=== PATIENT | male | born 1935 | race Caucasian/White ===

== ENCOUNTER 2017-05-21 20:38 | Inpatient (IN) | payer OTHER ==
[2017-05-21 20:50] VITALS: BMI 24.3
--- NOTE | 2017-05-21 20:52 | PDOC ---
History of Present Illness - General History Source: Patient, Family (son) Exam Limitations: No Limitations - History of Present Illness Initial Comments: 05/21/17 21:31 The patient is a 81 year old male with a significant past medical history of lung CA (s/p partial right lobectomy) on Tarceva, atrial fibrillation (on Coumadin), HLD, and IDDM who presents to the ED, accompanied by son, with complaints of cough for several days. The patient reports a dry nonproductive cough for several days. Patient reports right sided chest pain and back pain secondary to cough. As per son, the patient is warm to touch but denies a recorded fever. The patient had a CT done on 05/18/17 that showed right sided recurrent malignancy. Patient did not receive his flu shot this year. Denies abdominal pain, nausea, vomiting, or diarrhea. Denies shortness of breath on exertion and palpitations. Denies dysuria or change in urinary frequency. Denies any other symptoms. <Sumanth Brito - Last Filed: 05/21/17 21:37> <Indu Kelly - Last Filed: 05/22/17 02:46> - General Chief Complaint: Respiratory Stated Complaint: FEVER, BREATHING PROBLEMS Time Seen by Provider: 05/21/17 20:51 Past History <Sumanth Brito - Last Filed: 05/21/17 21:37> - Past Medical History Anemia: No Asthma: No Cancer: Yes (R LUNG S/P RADIATION) Cardiac Disorders: Yes (afib) CVA: No COPD: No CHF: No Dementia: No Diabetes: Yes GI Disorders: Yes (REFLUX) Disorders: Yes (ENLARGED PROSTATE) HTN: Yes Hypercholesterolemia: Yes Liver Disease: No Seizures: No Thyroid Disease: No - Surgical History Abdominal Surgery: No Appendectomy: No Cardiac Surgery: No Cholecystectomy: No Lung Surgery: Yes (R LUNG CA) Neurologic Surgery: No 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) - Suicide/Smoking/Psychosocial Hx Smoking Status: No Smoking History: Former smoker Have you smoked in the past 12 months: No Number of Cigarettes Smoked Daily: 0 If you are a former smoker, when did you quit?: 1983 Information on smoking cessation initiated: No Hx Alcohol Use: No Drug/Substance Use Hx: No Substance Use Type: None Hx Substance Use Treatment: No <Indu Kelly - Last Filed: 05/22/17 02:46> - Past Medical History Allergies/Adverse Reactions: Allergies Allergy/AdvReac Type Severity Reaction Status Date / Time vancomycin Allergy Severe Verified 08/10/16 10:37 Home Medications: Ambulatory Orders Dutasteride [Avodart] 0.5 mg PO DAILY 01/06/16 ERLOTINIB HCl [Tarceva (NF) -] 75 mg PO DAILY 01/06/16 Folic Acid 1 mg PO DAILY 01/06/16 Gabapentin [Neurontin -] 100 mg PO BID 01/06/16 Losartan Potassium [Cozaar -] 25 mg PO HS 01/06/16 Melatonin/Pyridoxine [Melatonin 3 mg Tablet] 1 each PO HS 01/06/16 Metformin HCl 500 mg PO DAILY 01/06/16 Metoclopramide HCl [Reglan] 5 mg PO HS 01/06/16 Pantoprazole Sodium [Protonix] 40 mg PO DAILY 01/06/16 Rosuvastatin Calcium [Crestor] 5 mg PO HS 01/06/16 Sitagliptin Phosphate [Januvia] 100 mg PO DAILY 01/06/16 Tamsulosin HCl [Flomax -] 0.4 mg PO DAILY 01/06/16 Amox-Tr/K Cl [Augmentin 875-125mg Tablet -] 1 tab PO BID #6 tablet 01/13/16 Clotrimazole [Athlete's Foot] 60 gm TP BID #1 cream..g. 01/13/16 Warfarin Na [Coumadin -] 1.5 mg PO DAILY@1800 #90 tablet 01/13/16 Warfarin Sodium [Coumadin] 2 mg PO DAILY #90 tablet 06/30/16 Review of Systems - Review of Systems Able to Perform ROS?: Yes Comments:: 05/21/17 21:32 CONSTITUTIONAL: + warm No reported: Fever, Chills, Diaphoresis, Generalized Weakness, Malaise, Loss of Appetite HEENT: No reported: Rhinorrhea, Nasal Congestion, Throat Pain, Throat Swelling, Difficulty Swallowing, Mouth Swelling, Ear Pain, Eye Pain, Visual Changes CARDIOVASCULAR: + chest pain No reported: Syncope, Palpitations, Irregular Heart Rate, Lightheadedness, Peripheral Edema RESPIRATORY: + cough No reported: Shortness of Breath, SOB with Exertion, Orthopnea, Wheezing, Stridor, Hemoptysis GASTROINTESTINAL: No reported: Abdominal pain, Abdominal Distension, Nausea, Vomiting, Diarrhea, Constipation, Melena, Hematochezia GENITOURINARY: No reported: Dysuria, Frequency, Urgency, Hesitancy, Flank Pain, Genital Pain MUSCULOSKELETAL: + back pain No reported: Myalgia, Arthralgia, Joint Swelling, Neck Pain SKIN: No reported: Rash, Itching, Pallor HEMEATOLOGIC/IMMUNOLOGIC: No reported: Easy Bleeding, Easy Bruising, Lymphadenopathy, Frequent infections ENDOCRINE: No reported: Unexplained Weight Gain, Unexplained Weight Loss, Heat Intolerance , Cold Intolerance NEUROLOGIC: No reported: Headache, Focal Weakness, Paresthesias, Vertigo, Lightheadedness, Unsteady Gait, Seizure, Mental Status Changes, Incontinence PSYCHIATRIC: No reported: Anxiety, Depression All Other Systems: Reviewed and Negative <Sumanth Brito - Last Filed: 05/21/17 21:37> *Physical Exam - Vital Signs Last Vital Signs Temp Pulse Resp BP Pulse Ox 99.5 F 113 H 19 108/50 98 05/21/17 20:46 05/21/17 20:46 05/21/17 20:46 05/21/17 20:46 05/21/17 20:46 - Physical Exam Comments: 05/21/17 21:32 GENERAL:Afebrile. Well developed. Awake and alert. No acute distress. HEENT: Normocephalic, atraumatic. PERRLA, EOMI. No conjunctival pallor. Sclera are non- icteric. Moist mucous membranes. Oropharynx is clear. NECK: Supple. Full ROM. No JVD. Carotid pulses 2+ and symmetric, without bruits. No thyromegaly. No lymphadenopathy. CARDIOVASCULAR: + Tachycardic. Regular rhythm. No murmurs, rubs, or gallops. Distal pulses are 2 + and symmetric. PULMONARY: + Right lung crackles superiorly, decreased breath sounds on the left lung. No wheezing, rales or rhonchi. ABDOMINAL: Soft. Non-tender. Non-distended. No rebound or guarding. No organomegaly. Normoactive bowel sounds. MUSCULOSKELETAL Normal range of motion at all joints. No bony deformities or tenderness. No CVA tenderness. EXTREMITIES: + left leg AKA, no pitting edema on right leg. No cyanosis. No clubbing. No calf tenderness. SKIN: + cold to touch, clammy, pale Normal capillary refill. No rashes. No jaundice. NEUROLOGICAL: Alert, awake, appropriate. Cranial nerves 2-12 intact. No deficits to light touch and temperature in face, upper extremities and lower extremities. No motor deficits in the in face, upper extremities and lower extremities. Normoreflexic in the upper and lower extremities. Normal speech. Toes are down- going bilaterally. Gait is normal without ataxia. PSYCHIATRIC: Cooperative. Good eye contact. Appropriate mood and affect. <Sumanth Brito - Last Filed: 05/21/17 21:37> - Vital Signs Last Vital Signs Temp Pulse Resp BP Pulse Ox 99.5 F 113 H 19 108/50 98 05/21/17 20:46 05/21/17 20:46 05/21/17 20:46 05/21/17 20:46 05/21/17 20:46 <Indu Kelly - Last Filed: 05/22/17 02:46> ED Treatment Course - LABORATORY CBC & Chemistry Diagram: 05/21/17 21:50 05/21/17 21:50 Comment: WBC elevated; likely due to chemo, as well as new malignancy and infection <Indu Kelly - Last Filed: 05/22/17 02:46> Medical Decision Making - Medical Decision Making 05/21/17 21:37 Case discussed with Brent Abdalla at 21:35 <Sumanth Brito - Last Filed: 05/21/17 21:37> - Medical Decision Making 05/21/17 21:12 Pt is cold clammy, pale and tachycardic. Comes with right sided chest pain that began 2 days ago. Pt had a chest and pelvis CT scan on May 18, three days ago which demonstrates a malignancy on the right lung, as there is increased tissue and pleural based nodularity since his last CT scan from Aug 2016. 05/21/17 21:17 Dr. Roberts is aware of the patient. Rx with abx for COPD/malignancy and likely pneumonia/sepsis. 05/22/17 02:[address] Rendon's service that pt is being admitted to the hospital. <Indu Kelly - Last Filed: 05/22/17 02:46> *DC/Admit/Observation/Transfer - Attestations Scribe Attestion: 05/21/17 21:32 Documentation prepared by Sumanth Brito, acting as pediatric medical assistant for Indu Kelly MD <Sumanth Brito - Last Filed: 05/21/17 21:37> - Discharge Dispostion Admit: Yes <Indu Kelly - Last Filed: 05/22/17 02:46> Diagnosis at time of Disposition: Tachycardia, Lung cancer, Sepsis, Pneumonia, Dyspnea - Discharge Dispostion Condition at time of disposition: Guarded - Referrals
[2017-05-21] MEDS ORDERED: ACETAMINOPHEN 1000 MG/100 ML VIAL (NON FORMULARY) IVPB ONE (20:53)
[2017-05-21] MEDS ORDERED: CEFTRIAXONE 1 GM in DEXTROSE 5%-WATER - 50 ML IVPB ONE (20:53)
[2017-05-21] MEDS ORDERED: AZITHROMYCIN IVPB 500 MG in DEXTROSE 5%-WATER - 250 ML IVPB ONE (20:53)
[2017-05-21] MEDS ORDERED: SODIUM CHLORIDE 0.9% 500 ML INFUS.BAG IV ONE (21:12)
[2017-05-21] MEDS ORDERED: ACETAMINOPHEN INJECTION 100 ML IVPB ONE (21:35)
[2017-05-21] MEDS ORDERED: AZITHROMYCIN IVPB 250 ML IVPB ONE (21:36)
[2017-05-21] MEDS ORDERED: CEFTRIAXONE 50 ML ONE (21:36)
[2017-05-21] MEDS ORDERED: FAMOTIDINE 20 MG/50 ML IVPB 50 ML IVPB ONE ×2 (21:42→22:20)
[2017-05-21 22:03] LABS: MCH 24.8 pg (25.7-33.7); MCHC 31.7 g/dl (32.0-35.9); MEAN CELL VOLUME 78.1 fl (80-96); MEAN PLT VOLUME 9.3 fl (7.5-11.1); PLATELET COUNT 351 K/MM3 (134-434); RDW 17.9 % (11.9-15.9)
[2017-05-21 22:06] LABS: WHITE BLOOD COUNT 49.4 K/mm3 (4.0-10.0)
[2017-05-21 22:20] LABS: INR 3.42 (0.82-1.09); PROTHROMBIN TIME (PATIENT) 38.6 SEC (9.98-11.88)
[2017-05-21 22:34] LABS: ALK PHOS 83 U/L (45-117); ANION GAP 10 (8-16); CALCIUM 8.6 mg/dL (8.5-10.1); CO2 23 mmol/L (21-32); CREATININE 1.4 mg/dL (0.7-1.3); GLUCOSE,RANDOM 143 mg/dL (74-106); SGOT/AST 21 U/L (15-37); SGPT/ALT 20 U/L (12-78); TOT PROT 7.5 g/dl (6.4-8.2)
[2017-05-21 22:37] LABS: PLATELET ESTIMATE ADEQUATE (NORMAL)
[2017-05-21 22:38] LABS: METAMYELOCYTE 3 % (0-2); MYELOCYTE 2 % (0-2); TOTAL CELLS COUNTED 100
[2017-05-22 09:52] LABS: MCH 24.1 pg (25.7-33.7); MCHC 30.5 g/dl (32.0-35.9); MEAN CELL VOLUME 79.1 fl (80-96); MEAN PLT VOLUME 8.8 fl (7.5-11.1); PLATELET COUNT 320 K/MM3 (134-434); RDW 18.3 % (11.9-15.9)
[2017-05-22 09:57] LABS: WHITE BLOOD COUNT 57.2 K/mm3 (4.0-10.0)
[2017-05-22] MEDS ORDERED: TAMSULOSIN HCL 0.4 MG CAP.ER.24H (FP) PO SCH (10:00)
[2017-05-22] MEDS ORDERED: CEFTRIAXONE 1 GM in DEXTROSE 5%-WATER - 50 ML IVPB SCH (10:00)
[2017-05-22] MEDS ORDERED: ERLOTINIB HCL PO SCH (10:00)
[2017-05-22] MEDS ORDERED: AZITHROMYCIN IVPB 250 ML IVPB ONE (10:24)
[2017-05-22] MEDS ORDERED: CEFTRIAXONE 50 ML ONE (10:24)
[2017-05-22 10:26] LABS: ANION GAP 10 (8-16); CALCIUM 8.3 mg/dL (8.5-10.1); CO2 26 mmol/L (21-32); CREATININE 1.2 mg/dL (0.7-1.3); GLUCOSE,RANDOM 111 mg/dL (74-106)
[2017-05-22 10:28] LABS: CPK 32 IU/L (39-308); TROPONIN I < 0.02 ng/ml (0.00-0.05)
[2017-05-22 10:40] LABS: INR 3.94 (0.82-1.09); PROTHROMBIN TIME (PATIENT) 44.5 SEC (9.98-11.88)
--- NOTE | 2017-05-22 11:02 | EKG ---
Test Reason : Blood Pressure : / mmHG Vent. Rate : 097 BPM Atrial Rate : 097 BPM P-R Int : 186 ms QRS Dur : 068 ms QT Int : 368 ms P-R-T Axes : 047 019 046 degrees QTc Int : 467 ms NORMAL SINUS RHYTHM POSSIBLE LEFT ATRIAL ENLARGEMENT WHEN COMPARED WITH ECG OF 06-JAN-2016 16:48, NO SIGNIFICANT CHANGE WAS FOUND Confirmed by SARAH GRAYSON MD ([id number]) on 05/22/2017 11:02:11 AM Referred By: Confirmed By:SARAH GRAYSON MD
[2017-05-22] MEDS: AZITHROMYCIN IVPB 500 MG in DEXTROSE 5%-WATER - 250 ML IVPB SCH (11:19)
[2017-05-22] MEDS: DUTASTERIDE 0.5 MG CAP (FP) PO SCH (12:17)
[2017-05-22] MEDS: metFORMIN HCL 500 MG TABLET (FP) PO SCH (12:17)
[2017-05-22] MEDS: sitaGLIPtin PHOSPHATE 100 MG TABLET (FP) PO SCH (12:18)
[2017-05-22] MEDS: GABAPENTIN 100 MG CAPSULE (FP) PO SCH ×2 (12:19→22:32)
[2017-05-22] MEDS: SODIUM CHLORIDE 1,000 ML IV SCH (12:20)
[2017-05-22] MEDS: FOLIC ACID 1 MG TABLET (FP) PO SCH (12:21)
[2017-05-22] MEDS: PANTOPRAZOLE 40 MG TABLET (FP) PO SCH (12:21)
--- NOTE | 2017-05-22 12:42 | HP ---
Admitting History and Physical - Primary Care Physician PCP: Brent Roberts - Admission Chief Complaint: SOB, Cough History of Present Illness: Pt with Hx/o Lung CA, s/p Right Lobectomy, on Tarceva, came to ER c/o progressive cough and SOB for the last 2-4 days; pt also with right base pain with cough and significant sweating and chills yesterday. Pt was admitted for PNA. 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) Gastrointestinal: Yes: GERD Renal/: Yes: BPH Heme/Onc: Yes: Cancer, Myeloproliferative Synd Musculoskeletal: Yes: Osteoarthritis, Other (s/p left AKA) Endocrine: Yes: Diabetes Mellitus - Past Surgical History Past Surgical History: Yes: Amputation (left AKA), Bypass (RLE) - Smoking History Smoking history: Former smoker Have you smoked in the past 12 months: No Aproximately how many cigarettes per day: 0 If you are a former smoker, when did you quit?: 1983 - Alcohol/Substance Use Hx Alcohol Use: No History of Substance Use: reports: None - Social History ADL: Family Assistance History of Recent Travel: No Home Medications - Allergies Allergies/Adverse Reactions: Allergies Allergy/AdvReac Type Severity Reaction Status Date / Time vancomycin Allergy Severe Verified 08/10/16 10:37 - Home Medications Home Medications: Ambulatory Orders Dutasteride [Avodart] 0.5 mg PO DAILY 01/06/16 Losartan Potassium [Cozaar -] 25 mg PO HS 01/06/16 Metformin HCl 500 mg PO DAILY 01/06/16 Sitagliptin Phosphate [Januvia] 100 mg PO DAILY 01/06/16 Warfarin Sodium [Coumadin] 2 mg PO DAILY #90 tablet 06/30/16 Erlotinib HCl [Tarceva] 50 mg PO DAILY 05/22/17 Ezetimibe 10 mg PO DAILY 05/22/17 Metoprolol Succinate [Toprol Xl] 100 mg PO DAILY 05/22/17 Warfarin Na [Coumadin] 1 mg PO HS 05/22/17 Family Disease History - Family Disease History Family Disease History: Heart Disease: Sister ([place] in her 60s; alive, in her 80s) Review of Systems - Review of Systems Constitutional: reports: Chills (at home) Eyes: denies: Blurred Vision, Double Vision HENT: denies: Difficult Swallowing, Ear Discharge, Ear Pain, Epistaxis, Nasal Congestion, Throat Pain Neck: denies: Pain on Movement, Stiffness Cardiovascular: denies: Chest Pain, Edema, Palpitations, Shortness of Breath Respiratory: reports: Cough, SOB Gastrointestinal: denies: Abdominal Pain, Diarrhea, Nausea Genitourinary: denies: Burning, Discharge Musculoskeletal: denies: Back Pain, Joint Swelling Integumentary: denies: Bruising, Rash Neurological: denies: Change in Speech, Confusion, Numbness Endocrine: reports: Excessive Sweating (yesterday). denies: Intolerance to Cold Hematology/Lymphatic: denies: Easily Bruised, Excessive Bleeding Psychiatric: denies: Anxiety, Depression Physical Examination Vital Signs: Vital Signs Temperature 97.6 F 05/22/17 09:00 Pulse Rate 83 05/22/17 09:00 Respiratory Rate 17 05/22/17 09:00 Blood Pressure 102/55 05/22/17 09:00 O2 Sat by Pulse Oximetry (%) 98 05/22/17 06:43 Constitutional: Yes: No Distress, Calm Eyes: Yes: Conjunctiva Clear, EOM Intact HENT: Yes: Normocephalic. No: Rhinnorhea Neck: Yes: Trachea Midline. No: Lymphadenopathy Cardiovascular: Yes: Regular Rate and Rhythm, S1, S2 Respiratory: Yes: Regular, Rales (right >> left) Gastrointestinal: Yes: Normal Bowel Sounds, Soft. No: Palpable Mass, Tenderness ...Rectal Exam: Yes: Deferred Renal/: No: CVA Tenderness - Left, CVA Tenderness - Right Extremities: Yes: Amputation Edema: No Neurological: Yes: Alert, Oriented Psychiatric: Yes: Alert, Oriented Labs: CBC, BMP 05/22/17 09:35 05/22/17 09:35 Imaging - Results Chest X-ray: Report Reviewed, Image Reviewed Problem List - Problems (1) Pneumonia Code(s): J18.9 - PNEUMONIA, UNSPECIFIED ORGANISM (2) Lung cancer Code(s): C34.90 - MALIGNANT NEOPLASM OF UNSP PART OF UNSP BRONCHUS OR LUNG (3) Sepsis Code(s): A41.9 - SEPSIS, UNSPECIFIED ORGANISM (4) Lactic acid acidosis Code(s): E87.2 - ACIDOSIS (5) Myeloproliferative disorder Code(s): D47.1 - CHRONIC MYELOPROLIFERATIVE DISEASE (6) Subtherapeutic anticoagulation Code(s): Z51.81 - ENCOUNTER FOR THERAPEUTIC DRUG LEVEL MONITORING Z79.01 - DETENTION (CURRENT) USE OF ANTICOAGULANTS (7) Diabetes mellitus Code(s): E11.9 - TYPE 2 DIABETES MELLITUS WITHOUT COMPLICATIONS Qualifiers: Diabetes mellitus type: type 2 Diabetes mellitus complication detail: with other circulatory complications Assessment/Plan IV abtx IVF ID, Pulmonary, Onco consults f/u BGM AM labs. case was d/w pt's nurse.
[2017-05-22 13:21] LABS: C-REACTIVE PROTEIN 14.1 MG/DL (0.00-0.3)
--- NOTE | 2017-05-22 14:14 | CONSULT ---
Consult - text type - Consultation Consultation Note: ONCOLGOY CONSULT NOTE : PNEUMONIA PCP: Brent Roberts - Admission Chief Complaint: SOB, Cough History of Present Illness: This is a 81 year old male who had lung cancer and s/p R. lobectomy and on tarceva. He came in with cough, nigh sweats, weight loss and fever. The son says he is much iproved after starting antibiotics. He also had MPD which makes his cell counts hard to interpret. 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) Gastrointestinal: Yes: GERD Renal/: Yes: BPH Heme/Onc: Yes: Cancer, Myeloproliferative Synd Musculoskeletal: Yes: Osteoarthritis, Other (s/p left AKA) Endocrine: Yes: Diabetes Mellitus - Past Surgical History Past Surgical History: Yes: Amputation (left AKA), Bypass (RLE) - Smoking History Smoking history: Former smoker Have you smoked in the past 12 months: No Aproximately how many cigarettes per day: 0 If you are a former smoker, when did you quit?: 1983 - Alcohol/Substance Use Hx Alcohol Use: No History of Substance Use: reports: None - Social History ADL: Family Assistance History of Recent Travel: No Home Medications - Allergies Allergies/Adverse Reactions: Allergies Allergy/AdvReac Type Severity Reaction Status Date / Time vancomycin Allergy Severe Verified 08/10/16 10:37 - Home Medications Home Medications: Ambulatory Orders Dutasteride [Avodart] 0.5 mg PO DAILY 01/06/16 Losartan Potassium [Cozaar -] 25 mg PO HS 01/06/16 Metformin HCl 500 mg PO DAILY 01/06/16 Sitagliptin Phosphate [Januvia] 100 mg PO DAILY 01/06/16 Warfarin Sodium [Coumadin] 2 mg PO DAILY #90 tablet 06/30/16 Erlotinib HCl [Tarceva] 50 mg PO DAILY 05/22/17 Ezetimibe 10 mg PO DAILY 05/22/17 Metoprolol Succinate [Toprol Xl] 100 mg PO DAILY 05/22/17 Warfarin Na [Coumadin] 1 mg PO HS 05/22/17 Family Disease History - Family Disease History Family Disease History: Heart Disease: Sister ([place] in her 60s; alive, in her 80s) Review of Systems - Review of Systems Constitutional: reports: Chills (at home) Eyes: denies: Blurred Vision, Double Vision HENT: denies: Difficult Swallowing, Ear Discharge, Ear Pain, Epistaxis, Nasal Congestion, Throat Pain Neck: denies: Pain on Movement, Stiffness Cardiovascular: denies: Chest Pain, Edema, Palpitations, Shortness of Breath Respiratory: reports: Cough, SOB Gastrointestinal: denies: Abdominal Pain, Diarrhea, Nausea Genitourinary: denies: Burning, Discharge Musculoskeletal: denies: Back Pain, Joint Swelling Integumentary: denies: Bruising, Rash Neurological: denies: Change in Speech, Confusion, Numbness Endocrine: reports: Excessive Sweating (yesterday). denies: Intolerance to Cold Hematology/Lymphatic: denies: Easily Bruised, Excessive Bleeding Psychiatric: denies: Anxiety, Depression Physical Examination Vital Signs Period Temp Pulse Resp BP Sys/Giordano Pulse Ox Last 24 Hr 97.6 F-99.5 F 83-113 17-19 102-108/50-55 98-98 Constitutional: Yes: No Distress, Calm Eyes: Yes: Conjunctiva Clear, EOM Intact HENT: Yes: Normocephalic. No: Rhinnorhea Neck: Yes: Trachea Midline. No: Lymphadenopathy Cardiovascular: Yes: Regular Rate and Rhythm, S1, S2 Respiratory: Yes: L. sided bronchial breath sounds. R. side crackles present Gastrointestinal: Yes: Normal Bowel Sounds, Soft. No: Palpable Mass, Tenderness ...Rectal Exam: Yes: Deferred Renal/: No: CVA Tenderness - Left, CVA Tenderness - Right Extremities: Yes: Amputation Edema: No Neurological: Yes: Alert, Oriented Psychiatric: Yes: Alert, Oriented Labs: CBC, BMP 05/22/17 09:35 05/22/17 09:35 Active Medications Generic Name Dose Route Start Last Admin Trade Name Freq PRN Reason Stop Dose Admin Clotrimazole 1 applic 05/22/17 10:00 Lotrimin 1% Cream - TP BID DENISE Dutasteride 0.5 mg 05/22/17 10:00 Avodart - PO DAILY DENISE Ezetimibe 10 mg 05/23/17 10:00 Zetia - PO DAILY DENISE Folic Acid 1 mg 05/22/17 10:00 Folic Acid - PO DAILY DENISE Gabapentin 100 mg 05/22/17 10:00 Neurontin - PO BID [facility] Azithromycin 500 mg/ Dextrose 250 mls @ 250 mls/hr 05/22/17 10:00 IVPB DAILY [facility] Ceftriaxone Sodium 1 gm/ 50 mls @ 100 mls/hr 05/22/17 10:00 Dextrose IVPB DAILY [facility] Sodium Chloride 1,000 mls @ 75 mls/hr 05/22/17 12:00 Normal Saline - IV ASDIR [facility] Insulin Aspart 10 units 05/22/17 16:30 Novolog Vial SQ ACHS [facility] Protocol Losartan Potassium 25 mg 05/22/17 22:00 Cozaar - PO HS [facility] Metformin HCl 500 mg 05/22/17 10:00 Glucophage - PO DAILY [facility] Metoclopramide HCl 5 mg 05/22/17 22:00 Reglan - PO HS [facility] Metoprolol Tartrate 50 mg 05/22/17 22:00 Lopressor - PO BID [facility] Non-Formulary Medication 75 mg 05/22/17 10:00 Erlotinib Hcl PO DAILY [facility] Non-Formulary Medication 50 mg 05/23/17 10:00 Erlotinib Hcl [Tarceva] PO DAILY [facility] Pantoprazole Sodium 40 mg 05/22/17 10:00 Protonix - PO DAILY [facility] Rosuvastatin Calcium 5 mg 05/22/17 22:00 Crestor - PO HS [facility] Sitagliptin Phosphate 100 mg 05/22/17 10:00 Januvia - PO DAILY [facility] Tamsulosin HCl 0.4 mg 05/22/17 13:20 Flomax - PO DAILY@0830 [facility] Imaging - Results Chest X-ray: Report Reviewed, Image Reviewed Problem List - Problems (1) Pneumonia Code(s): J18.9 - PNEUMONIA, UNSPECIFIED ORGANISM (2) Lung cancer Code(s): C34.90 - MALIGNANT NEOPLASM OF UNSP PART OF UNSP BRONCHUS OR LUNG (3) Sepsis Code(s): A41.9 - SEPSIS, UNSPECIFIED ORGANISM (4) Lactic acid acidosis Code(s): E87.2 - ACIDOSIS (5) Myeloproliferative disorder Code(s): D47.1 - CHRONIC MYELOPROLIFERATIVE DISEASE (6) Subtherapeutic anticoagulation Code(s): Z51.81 - ENCOUNTER FOR THERAPEUTIC DRUG LEVEL MONITORING Z79.01 - NURSING HOME (CURRENT) USE OF ANTICOAGULANTS (7) Diabetes mellitus Code(s): E11.9 - TYPE 2 DIABETES MELLITUS WITHOUT COMPLICATIONS Qualifiers: Diabetes mellitus type: type 2 Diabetes mellitus complication detail: with other circulatory complications Assessment/Plan 81 year old male with lung cancer on tarceva and MPD here with pneumonia -He has markedly improved since yesterday and hence continue with azithromycin -His MPD makes WCC difficult to interpret and hence wouldt rely on this -contiue tarceva (the patient took his tarceva this morning).
[2017-05-22] MEDS: INSULIN (NOVOLOG) ASPART 100 UNITS/ML 10ML VIAL SQ SCH ×2 (16:38→22:33)
--- NOTE | 2017-05-22 17:34 | PN ---
Progress Note (short form) - Note Progress Note: ID Consult dictated Pneumonia Leukocytosis- multifactorial Lactic acidosis Lung ca COPD Hx MPD Await cultures Continue empiric zithromax/ ceftriaxone
[2017-05-22] MEDS ORDERED: WARFARIN NA 1 MG TABLET (FP) PO SCH (18:00)
--- NOTE | 2017-05-22 18:02 | CONS ---
DATE OF CONSULTATION: DATE OF DICTATION: 05/22/2017 The patient is an 81-year-old male with a history of lung cancer, on Tarceva, who was evaluated for possible pneumonia. He was admitted to the hospital on May 21, 2017, with worsening dry cough associated with right-sided pleuritic chest and back pain. On the x-ray, he was noted to have increased markings on the right side as compared to previous studies. CAT scan which was performed on May 18, 2017, showed mass-like consolidation involving the right upper lung field. He denies any purulent sputum production or hemoptysis. He has had subjective fever. The patient, in the emergency room, was noted to have a markedly white blood cell count of 57,000. He has a history of myeloproliferative disorder; however, his baseline white blood cell counts are normally in the teens and low 20s. He denies any ill contacts or recent travel. He is a former smoker. Past medical history positive for adenocarcinoma of the lung diagnosed in 2012. He is status post right partial lobectomy. He also received Tarceva. Past medical history also includes myelodysplastic syndrome, atrial fibrillation, hyperlipidemia, insulin-dependent diabetes mellitus, BPH. PAST SURGICAL HISTORY: Status post right lobectomy, status post left [id number] amputation. Allergies to VANCOMYCIN (hives). Medications include Avodart, Tarceva, Neurontin, Cozaar, melatonin, metformin, Reglan, Protonix, Crestor, Januvia, Flomax. SOCIAL HISTORY: Lives at home with family members. Former smoker. SYSTEMS REVIEW: Neurologic: No loss of consciousness, seizure activity, or focal weakness. Cardiac: Negative chest pain or palpitations. Respiratory: As per HPI. Gastrointestinal: Negative vomiting or diarrhea. Genitourinary: Negative for urinary tract infection. LABORATORY DATA: White count 57,000 with 62 neutrophils, 20 bands, 1 lymphocytes. Hematocrit 42.3, platelet count 320, BUN 24, creatinine 1.2, lactic acid 2.6. Flu swab negative. Cultures pending. PHYSICAL EXAMINATION: General: He is awake and alert. He is not acutely toxic appearing. He is not dyspneic at rest on nasal cannula. Vital Signs: Temperature 97.3. Blood pressure 146/68. Pulse 92, regular. Respirations 20 per minute. Heart Sounds: S1, S2. Lungs: Diminished breath sounds bilaterally. Abdomen: Soft. No tenderness elicited. No mass, rebound or rigidity. Extremities: Status post left [id number] amputation. IMPRESSION: 1. Pneumonia. 2. Leukocytosis (multifactorial). 3. Lactic acidosis, possible sepsis. 4. Lung cancer. 5. Chronic obstructive pulmonary disease. 6. History of myeloproliferative disorder. Await culture results. Obtain sputum culture and urine Legionella and pneumococcal antigens. Empiric antibiotic coverage with Zithromax and ceftriaxone. Follow up CBC. Hematology evaluation. Will follow. Thank you for the kind referral. SARAH VILLA M.D. [id number]
[2017-05-22] MEDS: CLOTRIMAZOLE 1% CREAM 15 GM TUBE TP SCH ×2 (18:11→22:33)
[2017-05-22] MEDS ORDERED: PT OWN MED DRAWER 7, Y5N ONE (18:51)
[2017-05-22] MEDS: METOCLOPRAMIDE HCL 10 MG TABLET (FP) PO SCH (22:32)
[2017-05-22] MEDS: LOSARTAN POTASSIUM 25 MG TABLET PO SCH (22:32)
[2017-05-22] MEDS: METOPROLOL TARTRATE 50 MG TABLET (FP) PO SCH (22:32)
[2017-05-22] MEDS: ROSUVASTATIN CA 5 MG TABLET (FP) PO SCH (22:33)
[2017-05-23] MEDS: INSULIN (NOVOLOG) ASPART 100 UNITS/ML 10ML VIAL SQ SCH (06:46)
[2017-05-23 07:23] LABS: MCHC 31.7 g/dl (32.0-35.9); MEAN CELL VOLUME 78.7 fl (80-96); MEAN PLT VOLUME 9.1 fl (7.5-11.1); PLATELET COUNT 303 K/MM3 (134-434); RDW 18.1 % (11.9-15.9)
[2017-05-23 07:33] LABS: WHITE BLOOD COUNT 33.7 K/mm3 (4.0-10.0)
[2017-05-23 07:34] LABS: INR 2.38 (0.82-1.09); PROTHROMBIN TIME (PATIENT) 26.9 SEC (9.98-11.88)
[2017-05-23 07:52] LABS: ALBUMIN 2.4 g/dl (3.4-5.0); ANION GAP 9 (8-16); BILIRUBIN,TOTAL 0.8 mg/dL (0.2-1.0); CALCIUM 7.8 mg/dL (8.5-10.1); CO2 23 mmol/L (21-32); CREATININE 0.9 mg/dL (0.7-1.3); GLUCOSE,RANDOM 90 mg/dL (74-106); SGOT/AST 12 U/L (15-37); SGPT/ALT 16 U/L (12-78); TOT PROT 6.4 g/dl (6.4-8.2)
[2017-05-23 07:53] LABS: ALK PHOS 66 U/L (45-117)
[2017-05-23] MEDS: TAMSULOSIN HCL 0.4 MG CAP.ER.24H (FP) PO SCH (09:10)
[2017-05-23 09:54] LABS: ANISOCYTOSIS 1+; HYPOCHROMIA 1+; MACROCYTOSIS FEW; MICROCYTOSIS FEW; OVALOCYTE 1+; TARGET CELLS 1+; TEAR DROP CELLS 1+; TOTAL CELLS COUNTED 100
[2017-05-23 09:55] LABS: BURR CELLS 1+; PLATELET ESTIMATE ADEQUATE (NORMAL)
[2017-05-23] MEDS: GABAPENTIN 100 MG CAPSULE (FP) PO SCH ×2 (10:07→21:25)
[2017-05-23] MEDS: FOLIC ACID 1 MG TABLET (FP) PO SCH (10:07)
[2017-05-23] MEDS: metFORMIN HCL 500 MG TABLET (FP) PO SCH (10:08)
[2017-05-23] MEDS: METOPROLOL TARTRATE 50 MG TABLET (FP) PO SCH ×2 (10:09→21:25)
[2017-05-23] MEDS: PANTOPRAZOLE 40 MG TABLET (FP) PO SCH (10:09)
[2017-05-23] MEDS: CEFTRIAXONE 1 G/50 ML PREMIX 50 ML IVPB SCH (10:09)
[2017-05-23] MEDS: DUTASTERIDE 0.5 MG CAP (FP) PO SCH (10:09)
[2017-05-23] MEDS: EZETIMIBE 10 MG TABLET (FP) PO SCH (10:10)
[2017-05-23] MEDS: sitaGLIPtin PHOSPHATE 100 MG TABLET (FP) PO SCH (10:10)
[2017-05-23] MEDS: AZITHROMYCIN IVPB 500 MG in DEXTROSE 5%-WATER - 250 ML IVPB SCH (11:23)
[2017-05-23] MEDS ORDERED: INSULIN (NOVOLOG) ASPART 100 UNITS/ML 10ML VIAL ONE (11:34)
[2017-05-23] MEDS: CLOTRIMAZOLE 1% CREAM 15 GM TUBE TP SCH ×2 (12:05→21:31)
[2017-05-23] MEDS: SODIUM CHLORIDE 1,000 ML IV SCH ×2 (12:06→21:28)
[2017-05-23] MEDS: INSULIN SLIDING SCALE (NOVOLOG) 1 VIAL SQ SCH ×3 (12:13→21:32)
--- NOTE | 2017-05-23 14:30 | PN ---
Progress Note (short form) - Note Progress Note: PULMONARY CONSULTATION DICTATED 05/23/17 IMP PNEUMONIA RECURRENT LUNG CA S/P RUL WEDGE RESECTION AFIB HTN DM LACTIC ACIDOSIS PVD S/P L AKA MYELOPROLIFERATIVE DISORDER GERD PLAN IV ANTIBIOTCS O2 INHALED BRONCHODILATORS PRN CULTURES F/U CHEST X-RAYS TREND LACTATE TARCEVA MONITOR CBC DR MORENO Problem List - Problems (1) Dyspnea Code(s): R06.00 - DYSPNEA, UNSPECIFIED (2) Pneumonia Code(s): J18.9 - PNEUMONIA, UNSPECIFIED ORGANISM (3) Sepsis Code(s): A41.9 - SEPSIS, UNSPECIFIED ORGANISM (4) Tachycardia Code(s): R00.0 - TACHYCARDIA, UNSPECIFIED (5) Lung cancer Code(s): C34.90 - MALIGNANT NEOPLASM OF UNSP PART OF UNSP BRONCHUS OR LUNG (6) Chest pain Code(s): R07.9 - CHEST PAIN, UNSPECIFIED (7) Lactic acid acidosis Code(s): E87.2 - ACIDOSIS (8) Maintenance chemotherapy Code(s): Z51.11 - ENCOUNTER FOR ANTINEOPLASTIC CHEMOTHERAPY (9) Myeloproliferative disorder Code(s): D47.1 - CHRONIC MYELOPROLIFERATIVE DISEASE (10) PAD (peripheral artery disease) Code(s): I73.9 - PERIPHERAL VASCULAR DISEASE, UNSPECIFIED (11) Diabetes mellitus Code(s): E11.9 - TYPE 2 DIABETES MELLITUS WITHOUT COMPLICATIONS Qualifiers: Diabetes mellitus type: type 2 Diabetes mellitus complication detail: with other circulatory complications (12) GERD (gastroesophageal reflux disease) Code(s): K21.9 - GASTRO-ESOPHAGEAL REFLUX DISEASE WITHOUT ESOPHAGITIS Qualifiers: Esophagitis presence: with esophagitis Qualified Code(s): K21.0 - Gastro-esophageal reflux disease with esophagitis; K21.0 - Gastro-esophageal reflux disease with esophagitis; K21.0 - Gastro-esophageal reflux disease with esophagitis (13) Hypercholesteremia Code(s): E78.0 - PURE HYPERCHOLESTEROLEMIA * DO NOT USE *
--- NOTE | 2017-05-23 16:41 | PN ---
Progress Note, Physician History of Present Illness: Pt W?o fever, chills, CP, palp, abd apin Pt still coughs - Current Medication List Current Medications: Active Medications Clotrimazole (Lotrimin 1% Cream -) 1 applic TP BID [facility] Last Admin: 05/23/17 12:05 Dose: 1 applic Dutasteride (Avodart -) 0.5 mg PO DAILY [facility] Last Admin: 05/23/17 10:09 Dose: 0.5 mg Ezetimibe (Zetia -) 10 mg PO DAILY [facility] Last Admin: 05/23/17 10:10 Dose: 10 mg Folic Acid (Folic Acid -) 1 mg PO DAILY [facility] Last Admin: 05/23/17 10:07 Dose: 1 mg Gabapentin (Neurontin -) 100 mg PO BID [facility] Last Admin: 05/23/17 10:07 Dose: 100 mg Azithromycin 500 mg/ Dextrose 250 mls @ 250 mls/hr IVPB DAILY [facility] Last Admin: 05/23/17 11:23 Dose: 250 mls/hr Sodium Chloride (Normal Saline -) 1,000 mls @ 75 mls/hr IV ASDIR [facility] Last Admin: 05/23/17 12:06 Dose: Not Given CEFTRIAXONE 1 G/50 ML PREMIX (Ceftriaxone 1 Gm-D5w Bag) 50 mls @ 100 mls/hr IVPB DAILY [facility] Last Admin: 05/23/17 10:09 Dose: 100 mls/hr Insulin Aspart (Novolog Vial Sliding Scale -) 1 vial SQ ACHS [facility] PRN Reason: Protocol Last Admin: 05/23/17 12:13 Dose: 2 units Losartan Potassium (Cozaar -) 25 mg PO HS [facility] Last Admin: 05/22/17 22:32 Dose: 25 mg Metformin HCl (Glucophage -) 500 mg PO DAILY [facility] Last Admin: 05/23/17 10:08 Dose: 500 mg Metoclopramide HCl (Reglan -) 5 mg PO HS [facility] Last Admin: 05/22/17 22:32 Dose: 5 mg Metoprolol Tartrate (Lopressor -) 50 mg PO BID [facility] Last Admin: 05/23/17 10:09 Dose: 50 mg Non-Formulary Medication (Erlotinib Hcl [Tarceva]) 50 mg PO DAILY [facility] Pantoprazole Sodium (Protonix -) 40 mg PO DAILY [facility] Last Admin: 10/16/17 10:09 Dose: 40 mg Rosuvastatin Calcium (Crestor -) 5 mg PO HS [facility] Last Admin: 05/22/17 22:33 Dose: 5 mg Sitagliptin Phosphate (Januvia -) 100 mg PO DAILY [facility] Last Admin: 05/23/17 10:10 Dose: 100 mg Tamsulosin HCl (Flomax -) 0.4 mg PO DAILY@0830 [facility] Last Admin: 05/23/17 09:10 Dose: 0.4 mg - Objective Vital Signs: Vital Signs Temperature 97.5 F L 05/23/17 15:34 Pulse Rate 89 05/23/17 15:34 Respiratory Rate 20 05/23/17 15:34 Blood Pressure 119/55 05/23/17 15:34 O2 Sat by Pulse Oximetry (%) 98 05/23/17 09:00 Constitutional: Yes: No Distress, Calm Cardiovascular: Yes: Regular Rate and Rhythm, S1, S2 Respiratory: Yes: Regular, Rhonchi (at bases) Gastrointestinal: Yes: Normal Bowel Sounds, Soft. No: Tenderness Extremities: Yes: Other (Left AKA) Edema: No (on right) Neurological: Yes: Alert, Oriented Labs: CBC, BMP 05/23/17 06:30 05/23/17 06:30 INR, PTT INR 2.38 (0.82-1.09) H D 05/23/17 06:30 Problem List - Problems (1) Pneumonia Code(s): J18.9 - PNEUMONIA, UNSPECIFIED ORGANISM (2) Lung cancer Code(s): C34.90 - MALIGNANT NEOPLASM OF UNSP PART OF UNSP BRONCHUS OR LUNG (3) Sepsis Code(s): A41.9 - SEPSIS, UNSPECIFIED ORGANISM (4) Lactic acid acidosis Code(s): E87.2 - ACIDOSIS (5) Myeloproliferative disorder Code(s): D47.1 - CHRONIC MYELOPROLIFERATIVE DISEASE (6) Subtherapeutic anticoagulation Code(s): Z51.81 - ENCOUNTER FOR THERAPEUTIC DRUG LEVEL MONITORING 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 f/u BGM AM labs. Resume Coumadin case was d/w pt's nurse.
--- NOTE | 2017-05-23 17:03 | CONS ---
DATE OF CONSULTATION: 05/23/2017 PULMONARY CONSULTATION REFERRING PHYSICIAN: Brent Roberts M.D. HISTORY OF PRESENT ILLNESS: The patient is an 81-year-old male with past medical history of lung CA, adeno cell type, status post wedge resection right upper lobe in 2011, currently maintain on Tarceva. History of atrial fibrillation, GERD, myeloproliferative syndrome, osteoarthritis. History of peripheral vascular disease status post left AKA . Diabetes. History of right lower extremity bypass. Admitted to [facility] with complaint of 1-week history increasing shortness of breath, cough productive of yellowish sputum, right-sided chest discomfort. Patient denies any fevers, although complained of sweating and chills. He presented to the emergency room above. On admission, he is felt to have a possible pneumonia. He was placed on antibiotic therapy with good clinical response. Patient denies any hemoptysis, denies any nausea, vomiting or diaphoreses. He has a history of smoking, quit 35 years ago. 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 He denies any occupational exposures. He was born in [place], moved to [facility] greater than 35 years ago. PAST MEDICAL HISTORY: Again, includes bronchogenic CA adeno cell type status post wedge resection right upper lobe, currently maintain on Tarceva, peripheral vascular disease status post left AKA, diabetes, osteoarthritis, myeloproliferative syndrome, BPH, GERD, and atrial fibrillation, and hypertension. REVIEW OF SYSTEMS: No orthopnea. No PND. Positive cough. Positive sputum. Positive chest discomfort right-sided. Positive chills, no fever. No hemoptysis, no abdominal pain. CURRENT MEDICATIONS: Include Tarceva, Avodart, Flomax, Cozaar, Zithromax, Neurontin, Lotrimin, Glucophage, ceftriaxone, , Januvia, Crestor, Protonix, folic acid. PHYSICAL EXAMINATION: General: The patient is a well-developed, well-nourished male, awake, alert, in no acute distress. Vital signs: He is currently afebrile. Heart rate is 92. Blood pressure is 105/76, respiratory rate is 20, O2 saturation is 97% on room air. HEENT: Head is normocephalic, atraumatic. Neck: Supple. Heart: Regular. S1, S2. Chest: Chest tube on the right. Abdomen: Soft. Bowel sounds positive. Extremities: No cyanosis, edema. Status post left AKA. LABORATORY: WBC is 33.7, hemoglobin 11.8, hematocrit 37.2, with platelet count of 303,000. Of note CBC on admission was 49.4. Previous WBC was 11.1 on December 21. INR is 2.38. Chemistries: BUN 20, creatinine 0.9, lactate level was 2.6. Chest CT reveals post thoracotomy change in the right upper lobe. There is increased nodularity in the right lower lobe which is increased in size from previous CAT scan compared to September 02, 2016, and there is increase of right upper lobe consolidation and/or atelectasis. IMPRESSION: 1. Chills, fever, rule out possible pneumonia, right upper lobe. 2. History of bronchogenic carcinoma, likely status post wedge resection, right upper lobe. 3. Likely recurrent lung carcinoma, currently on Tarceva. 4. Hypertension. 5. Diabetes. 6. Peripheral vascular disease. 7. Myeloproliferative syndrome. 8. Lactic acidosis. PLAN: IV steroids, IV antibiotics, inhaled bronchodilators, supplemental O2, obtain cultures, monitor CBC. Trend lactate, cultures. Thank you. Will follow closely with you. MALLY MORENO M.D. DELORIS/[id number]
[2017-05-23] MEDS ORDERED: WARFARIN NA 1 MG TABLET (FP) PO ONE (18:00)
--- NOTE | 2017-05-23 19:16 | PN ---
Progress Note (short form) - Note Progress Note: Patient seen and examined Denies any complaints Last Vital Signs Temp Pulse Resp BP Pulse Ox 98.8 F 95 H 18 130/58 99 05/24/17 06:00 05/24/17 06:00 05/24/17 06:00 05/24/17 06:00 05/23/17 21:00 Cor: RSR, No murmurs, No gallops Lungs: Clear to P&A Abd: Soft, Normal bowel sounds, No organomegaly Ext:No significant edema Skin: No rashes, Integument intact Abnormal Lab Results 05/23/17 06:30 WBC 33.7 H* D MCV 78.7 L MCH 25.0 L MCHC 31.7 L RDW 18.1 H Neutrophils % (Manual) 86 H D Lymphocytes % (Manual) 2 L D Home Medication List Medication Instructions Recorded Confirmed Type Dutasteride [Avodart] 0.5 mg PO DAILY 01/06/16 05/22/17 History Losartan Potassium [Cozaar -] 25 mg PO HS 01/06/16 05/22/17 History Metformin HCl 500 mg PO DAILY 01/06/16 05/22/17 History Sitagliptin Phosphate [Januvia] 100 mg PO DAILY 01/06/16 05/22/17 History Erlotinib HCl [Tarceva] 50 mg PO DAILY 05/22/17 05/22/17 History Ezetimibe 10 mg PO DAILY 05/22/17 05/22/17 History Metoprolol Succinate [Toprol Xl] 100 mg PO DAILY 05/22/17 05/22/17 History Warfarin Na [Coumadin] 1 mg PO HS 05/22/17 05/22/17 History Active Medications Generic Name Dose Route Start Last Admin Trade Name Freq PRN Reason Stop Dose Admin Clotrimazole 1 applic 05/22/17 10:00 05/23/17 21:31 Lotrimin 1% Cream - TP Not Given BID [facility] Dutasteride 0.5 mg 05/22/17 10:00 05/23/17 10:09 Avodart - PO 0.5 mg DAILY [facility] Administration Ezetimibe 10 mg 05/23/17 10:00 05/23/17 10:10 Zetia - PO 10 mg DAILY [facility] Administration Folic Acid 1 mg 05/22/17 10:00 05/23/17 10:07 Folic Acid - PO 1 mg DAILY [facility] Administration Gabapentin 100 mg 05/22/17 10:00 05/23/17 21:25 Neurontin - PO 100 mg BID [facility] Administration Azithromycin 500 mg/ Dextrose 250 mls @ 250 mls/hr 05/22/17 10:00 05/23/17 11: 23 IVPB 250 mls/hr DAILY [facility] Administration Sodium Chloride 1,000 mls @ 75 mls/hr 05/22/17 12:00 05/23/17 21:28 Normal Saline - IV 75 mls/hr ASDIR [facility] Administration CEFTRIAXONE 1 G/50 ML PREMIX 50 mls @ 100 mls/hr 05/23/17 08:24 05/23/17 10:09 Ceftriaxone 1 Gm-D5w Bag IVPB 100 mls/hr DAILY [facility] Administration Insulin Aspart 1 vial 05/23/17 16:30 05/24/17 07:03 Novolog Vial Sliding Scale - SQ Not Given ACHS [facility] Protocol Losartan Potassium 25 mg 05/22/17 22:00 05/23/17 21:25 Cozaar - PO 25 mg HS [facility] Administration Metformin HCl 500 mg 05/22/17 10:00 05/23/17 10:08 Glucophage - PO 500 mg DAILY [facility] Administration Metoclopramide HCl 5 mg 05/22/17 22:00 05/23/17 21:25 Reglan - PO 5 mg HS [facility] Administration Metoprolol Tartrate 50 mg 05/22/17 22:00 05/23/17 21:25 Lopressor - PO 50 mg BID [facility] Administration Pnt's Own Med( 50 mg 05/24/17 06:00 05/24/17 06:58 Erlotinib Hcl [ PO 50 mg Tarceva] 25 Mg) DAILY@0600 [facility] Administration Pantoprazole Sodium 40 mg 05/22/17 10:00 05/23/17 10:09 Protonix - PO 40 mg DAILY [facility] Administration Rosuvastatin Calcium 5 mg 05/22/17 22:00 05/23/17 21:29 Crestor - PO 5 mg HS [facility] Administration Sitagliptin Phosphate 100 mg 05/22/17 10:00 05/23/17 10:10 Januvia - PO 100 mg DAILY [facility] Administration Tamsulosin HCl 0.4 mg 05/22/17 13:20 05/23/17 09:10 Flomax - PO 0.4 mg DAILY@0830 [facility] Administration A/P 81 y/o patient with metastatiic lung cancer and myeloproliferative disorder, being treated for pneumonia Is on tarceva Clinically improved on rocephin
--- NOTE | 2017-05-23 21:04 | PN ---
Progress Note, Physician History of Present Illness: Seated in bed No c/o chest pain or dyspnea Breathing comfortably on room air No c/o fever/ chills\ Occasional cough, white sputum - Current Medication List Current Medications: Active Medications Clotrimazole (Lotrimin 1% Cream -) 1 applic TP BID [facility] Last Admin: 05/23/17 12:05 Dose: 1 applic Dutasteride (Avodart -) 0.5 mg PO DAILY [facility] Last Admin: 05/23/17 10:09 Dose: 0.5 mg Ezetimibe (Zetia -) 10 mg PO DAILY [facility] Last Admin: 05/23/17 10:10 Dose: 10 mg Folic Acid (Folic Acid -) 1 mg PO DAILY [facility] Last Admin: 05/23/17 10:07 Dose: 1 mg Gabapentin (Neurontin -) 100 mg PO BID [facility] Last Admin: 05/23/17 10:07 Dose: 100 mg Azithromycin 500 mg/ Dextrose 250 mls @ 250 mls/hr IVPB DAILY [facility] Last Admin: 05/23/17 11:23 Dose: 250 mls/hr Sodium Chloride (Normal Saline -) 1,000 mls @ 75 mls/hr IV ASDIR [facility] Last Admin: 05/23/17 12:06 Dose: Not Given CEFTRIAXONE 1 G/50 ML PREMIX (Ceftriaxone 1 Gm-D5w Bag) 50 mls @ 100 mls/hr IVPB DAILY [facility] Last Admin: 05/23/17 10:09 Dose: 100 mls/hr Insulin Aspart (Novolog Vial Sliding Scale -) 1 vial SQ ACHS [facility] PRN Reason: Protocol Last Admin: 05/23/17 17:16 Dose: Not Given Losartan Potassium (Cozaar -) 25 mg PO HS [facility] Last Admin: 05/22/17 22:32 Dose: 25 mg Metformin HCl (Glucophage -) 500 mg PO DAILY [facility] Last Admin: 05/23/17 10:08 Dose: 500 mg Metoclopramide HCl (Reglan -) 5 mg PO [facility] Last Admin: 05/22/17 22:32 Dose: 5 mg Metoprolol Tartrate (Lopressor -) 50 mg PO BID [facility] Last Admin: 05/23/17 10:09 Dose: 50 mg [employer]( Erlotinib Hcl [ Tarceva] 25 Mg) 50 mg PO DAILY@0600 [facility] Pantoprazole Sodium (Protonix -) 40 mg PO DAILY [facility] Last Admin: 05/23/17 10:09 Dose: 40 mg Rosuvastatin Calcium (Crestor -) 5 mg PO HS [facility] Last Admin: 05/22/17 22:33 Dose: 5 mg Sitagliptin Phosphate (Januvia -) 100 mg PO DAILY [facility] Last Admin: 05/23/17 10:10 Dose: 100 mg Tamsulosin HCl (Flomax -) 0.4 mg PO DAILY@0830 [facility] Last Admin: 05/23/17 09:10 Dose: 0.4 mg - Objective Vital Signs: Vital Signs Temperature 97.5 F L 05/23/17 15:34 Pulse Rate 89 05/23/17 15:34 Respiratory Rate 20 05/23/17 15:34 Blood Pressure 119/55 05/23/17 15:34 O2 Sat by Pulse Oximetry (%) 98 05/23/17 09:00 Constitutional: Yes: No Distress Eyes: Yes: Conjunctiva Clear Cardiovascular: Yes: Regular Rate and Rhythm, S1, S2 Respiratory: Yes: Diminished Gastrointestinal: Yes: Normal Bowel Sounds, Soft Extremities: Yes: Other (s/p L LE amputation) Labs: CBC, BMP 05/23/17 06:30 05/23/17 06:30 INR, PTT INR 2.38 (0.82-1.09) H D 05/23/17 06:30 Assessment/Plan Pneumonia- improved Lung ca Leukocytosis- multifactorial Await c/s Continue empiric zithromax/ ceftriaxone Discussed with son at bedside
[2017-05-23] MEDS ORDERED: PT OWN MED DRAWER 7, Y5N ONE (21:11)
[2017-05-23] MEDS: METOCLOPRAMIDE HCL 10 MG TABLET (FP) PO SCH (21:25)
[2017-05-23] MEDS: LOSARTAN POTASSIUM 25 MG TABLET PO SCH (21:25)
[2017-05-23] MEDS: ROSUVASTATIN CA 5 MG TABLET (FP) PO SCH (21:29)
[2017-05-24] MEDS: ERLOTINIB PO SCH (06:58)
[2017-05-24] MEDS: INSULIN SLIDING SCALE (NOVOLOG) 1 VIAL SQ SCH ×4 (07:03→22:47)
[2017-05-24 08:35] LABS: MCH 24.8 pg (25.7-33.7); MCHC 31.6 g/dl (32.0-35.9); MEAN CELL VOLUME 78.3 fl (80-96); MEAN PLT VOLUME 9.4 fl (7.5-11.1); PLATELET COUNT 292 K/MM3 (134-434); RDW 18.1 % (11.9-15.9); WHITE BLOOD COUNT 23.1 K/mm3 (4.0-10.0)
[2017-05-24 08:43] LABS: INR 2.17 (0.82-1.09); PROTHROMBIN TIME (PATIENT) 24.5 SEC (9.98-11.88)
[2017-05-24 08:54] LABS: ANION GAP 8 (8-16); CALCIUM 7.9 mg/dL (8.5-10.1); CO2 23 mmol/L (21-32); GLUCOSE,RANDOM 121 mg/dL (74-106)
[2017-05-24 08:56] LABS: CREATININE 0.7 mg/dL (0.7-1.3)
[2017-05-24] MEDS: TAMSULOSIN HCL 0.4 MG CAP.ER.24H (FP) PO SCH (09:09)
[2017-05-24] MEDS: CEFTRIAXONE 1 G/50 ML PREMIX 50 ML IVPB SCH (09:54)
[2017-05-24] MEDS: sitaGLIPtin PHOSPHATE 100 MG TABLET (FP) PO SCH (10:04)
[2017-05-24] MEDS: metFORMIN HCL 500 MG TABLET (FP) PO SCH (10:04)
[2017-05-24] MEDS: METOPROLOL TARTRATE 50 MG TABLET (FP) PO SCH ×2 (10:04→22:41)
[2017-05-24] MEDS: PANTOPRAZOLE 40 MG TABLET (FP) PO SCH (10:04)
[2017-05-24] MEDS: FOLIC ACID 1 MG TABLET (FP) PO SCH (10:05)
[2017-05-24] MEDS: GABAPENTIN 100 MG CAPSULE (FP) PO SCH ×2 (10:05→22:41)
[2017-05-24] MEDS: DUTASTERIDE 0.5 MG CAP (FP) PO SCH (10:14)
[2017-05-24] MEDS: EZETIMIBE 10 MG TABLET (FP) PO SCH (10:15)
--- NOTE | 2017-05-24 10:32 | PN ---
Progress Note, Physician History of Present Illness: Pt w/o fever, chills, CP, palp, abd pain Pt still coughs, less - Current Medication List Current Medications: Active Medications Clotrimazole (Lotrimin 1% Cream -) 1 applic TP BID [facility] Last Admin: 05/23/17 21:31 Dose: Not Given Dutasteride (Avodart -) 0.5 mg PO DAILY [facility] Last Admin: 05/24/17 10:14 Dose: 0.5 mg Ezetimibe (Zetia -) 10 mg PO DAILY [facility] Last Admin: 05/24/17 10:15 Dose: 10 mg Folic Acid (Folic Acid -) 1 mg PO DAILY [facility] Last Admin: 05/24/17 10:05 Dose: 1 mg Gabapentin (Neurontin -) 100 mg PO BID [facility] Last Admin: 05/24/17 10:05 Dose: 100 mg Azithromycin 500 mg/ Dextrose 250 mls @ 250 mls/hr IVPB DAILY [facility] Last Admin: 05/23/17 11:23 Dose: 250 mls/hr Sodium Chloride (Normal Saline -) 1,000 mls @ 75 mls/hr IV ASDIR [facility] Last Admin: 05/23/17 21:28 Dose: 75 mls/hr CEFTRIAXONE 1 G/50 ML PREMIX (Ceftriaxone 1 Gm-D5w Bag) 50 mls @ 100 mls/hr IVPB DAILY [facility] Last Admin: 05/24/17 09:54 Dose: 100 mls/hr Insulin Aspart (Novolog Vial Sliding Scale -) 1 vial SQ ACHS [facility] PRN Reason: Protocol Last Admin: 05/24/17 07:03 Dose: Not Given Losartan Potassium (Cozaar -) 25 mg PO HS [facility] Last Admin: 05/23/17 21:25 Dose: 25 mg Metformin HCl (Glucophage -) 500 mg PO DAILY [facility] Last Admin: 05/24/17 10:04 Dose: 500 mg Metoclopramide HCl (Reglan -) 5 mg PO HS [facility] Last Admin: 05/23/17 21:25 Dose: 5 mg Metoprolol Tartrate (Lopressor -) 50 mg PO BID [facility] Last Admin: 05/24/17 10:04 Dose: 50 mg [employer]( Erlotinib Hcl [ Tarceva] 25 Mg) 50 mg PO DAILY@0600 [facility] Last Admin: 05/24/17 06:58 Dose: 50 mg Pantoprazole Sodium (Protonix -) 40 mg PO DAILY [facility] Last Admin: 05/24/17 10:04 Dose: 40 mg Rosuvastatin Calcium (Crestor -) 5 mg PO HS [facility] Last Admin: 05/23/17 21:29 Dose: 5 mg Sitagliptin Phosphate (Januvia -) 100 mg PO DAILY [facility] Last Admin: 05/24/17 10:04 Dose: 100 mg Tamsulosin HCl (Flomax -) 0.4 mg PO DAILY@0830 [facility] Last Admin: 05/24/17 09:09 Dose: 0.4 mg - Objective Vital Signs: Vital Signs Temperature 98.5 F 05/24/17 09:35 Pulse Rate 79 05/24/17 09:35 Respiratory Rate 18 05/24/17 09:35 Blood Pressure 144/62 05/24/17 09:35 O2 Sat by Pulse Oximetry (%) 99 05/23/17 21:00 Constitutional: Yes: No Distress, Calm Cardiovascular: Yes: Regular Rate and Rhythm, S1, S2 Respiratory: Yes: Regular, Rales Gastrointestinal: Yes: Normal Bowel Sounds, Soft. No: Tenderness Edema: No Neurological: Yes: Alert, Oriented Labs: CBC, BMP 05/24/17 06:50 05/24/17 06:50 INR, PTT INR 2.17 (0.82-1.09) H 05/24/17 06:50 Problem List - Problems (1) Pneumonia Code(s): J18.9 - PNEUMONIA, UNSPECIFIED ORGANISM (2) Lung cancer Code(s): C34.90 - MALIGNANT NEOPLASM OF UNSP PART OF UNSP BRONCHUS OR LUNG (3) Sepsis Code(s): A41.9 - SEPSIS, UNSPECIFIED ORGANISM (4) Lactic acid acidosis Code(s): E87.2 - ACIDOSIS (5) Myeloproliferative disorder Code(s): D47.1 - CHRONIC MYELOPROLIFERATIVE DISEASE (6) Subtherapeutic anticoagulation Code(s): Z51.81 - ENCOUNTER FOR THERAPEUTIC DRUG LEVEL MONITORING 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 f/u BGM AM labs; check lactic acid. Resume Coumadin Case was d/w pt's nurse. Case was d/w pt's son (at bedside).
--- NOTE | 2017-05-24 11:12 | PN ---
Progress Note (short form) - Note Progress Note: PULMONARY Feeling better. No fevers or chills. Cough improving. Last Vital Signs Temp Pulse Resp BP Pulse Ox 98.5 F 79 18 144/62 99 05/24/17 09:35 05/24/17 09:35 05/24/17 09:35 05/24/17 09:35 05/23/17 21:00 Gen: NAD at rest Heart: RRR Lung: decreased breath sounds at the bases Abd: soft, nontender Ext: L AKA CBC, BMP 05/24/17 06:50 05/24/17 06:50 Active Medications Clotrimazole (Lotrimin 1% Cream -) 1 applic TP BID [facility] Last Admin: 05/23/17 21:31 Dose: Not Given Dutasteride (Avodart -) 0.5 mg PO DAILY [facility] Last Admin: 05/24/17 10:14 Dose: 0.5 mg Ezetimibe (Zetia -) 10 mg PO DAILY [facility] Last Admin: 05/24/17 10:15 Dose: 10 mg Folic Acid (Folic Acid -) 1 mg PO DAILY [facility] Last Admin: 05/24/17 10:05 Dose: 1 mg Gabapentin (Neurontin -) 100 mg PO BID [facility] Last Admin: 05/24/17 10:05 Dose: 100 mg Azithromycin 500 mg/ Dextrose 250 mls @ 250 mls/hr IVPB DAILY [facility] Last Admin: 05/23/17 11:23 Dose: 250 mls/hr Sodium Chloride (Normal Saline -) 1,000 mls @ 75 mls/hr IV ASDIR [facility] Last Admin: 05/23/17 21:28 Dose: 75 mls/hr CEFTRIAXONE 1 G/50 ML PREMIX (Ceftriaxone 1 Gm-D5w Bag) 50 mls @ 100 mls/hr IVPB DAILY [facility] Last Admin: 05/24/17 09:54 Dose: 100 mls/hr Insulin Aspart (Novolog Vial Sliding Scale -) 1 vial SQ ACHS [facility] PRN Reason: Protocol Last Admin: 05/24/17 07:03 Dose: Not Given Losartan Potassium (Cozaar -) 25 mg PO HS [facility] Last Admin: 05/23/17 21:25 Dose: 25 mg Metformin HCl (Glucophage -) 500 mg PO DAILY [facility] Last Admin: 05/24/17 10:04 Dose: 500 mg Metoclopramide HCl (Reglan -) 5 mg PO HS [facility] Last Admin: 05/23/17 21:25 Dose: 5 mg Metoprolol Tartrate (Lopressor -) 50 mg PO BID [facility] Last Admin: 05/24/17 10:04 Dose: 50 mg [employer]( Erlotinib Hcl [ Tarceva] 25 Mg) 50 mg PO DAILY@0600 [facility] Last Admin: 05/24/17 06:58 Dose: 50 mg Pantoprazole Sodium (Protonix -) 40 mg PO DAILY [facility] Last Admin: 05/24/17 10:04 Dose: 40 mg Rosuvastatin Calcium (Crestor -) 5 mg PO HS [facility] Last Admin: 05/23/17 21:29 Dose: 5 mg Sitagliptin Phosphate (Januvia -) 100 mg PO DAILY [facility] Last Admin: 05/24/17 10:04 Dose: 100 mg Tamsulosin HCl (Flomax -) 0.4 mg PO DAILY@0830 [facility] Last Admin: 05/24/17 09:09 Dose: 0.4 mg A/P Pneumonia Recurrent Lung Ca on Tarceva Atrial Fibrillation COPD PAD s/p L AKA Myeloproliferative Disorder - continue antibiotics - inhaled bronchodilators - O2 as needed - continue tarceva - DVT prophylaxis
[2017-05-24] MEDS ORDERED: PT OWN MED DRAWER 7, Y5N ONE ×2 (11:19→22:21)
[2017-05-24] MEDS: AZITHROMYCIN IVPB 500 MG in DEXTROSE 5%-WATER - 250 ML IVPB SCH (11:22)
[2017-05-24] MEDS ORDERED: ALBUTEROL SO4 0.083% IH SOL 2.5 MG/3 ML VIAL.NEB. NEB PRN (11:24)
[2017-05-24] MEDS: SODIUM CHLORIDE 1,000 ML IV SCH ×3 (12:00→18:34)
[2017-05-24] MEDS: CLOTRIMAZOLE 1% CREAM 15 GM TUBE TP SCH ×2 (16:06→22:42)
[2017-05-24] MEDS ORDERED: WARFARIN NA 3 MG TABLET PO ONE (18:00)
[2017-05-24] MEDS: INSULIN (NOVOLOG) ASPART 100 UNITS/ML 10ML VIAL SQ SCH (21:28)
[2017-05-24] MEDS: LOSARTAN POTASSIUM 25 MG TABLET PO SCH (22:41)
[2017-05-24] MEDS: ROSUVASTATIN CA 5 MG TABLET (FP) PO SCH (22:41)
[2017-05-24] MEDS: METOCLOPRAMIDE HCL 10 MG TABLET (FP) PO SCH (22:42)
[2017-05-25] MEDS ORDERED: PT OWN MED DRAWER 7, Y5N ONE ×2 (06:35→21:28)
[2017-05-25] MEDS: SODIUM CHLORIDE 1,000 ML IV SCH (06:53)
[2017-05-25] MEDS: ERLOTINIB PO SCH (06:54)
[2017-05-25] MEDS: INSULIN SLIDING SCALE (NOVOLOG) 1 VIAL SQ SCH ×4 (07:02→22:48)
[2017-05-25 07:12] LABS: MCH 24.5 pg (25.7-33.7); MCHC 31.3 g/dl (32.0-35.9); MEAN CELL VOLUME 78.2 fl (80-96); MEAN PLT VOLUME 8.9 fl (7.5-11.1); PLATELET COUNT 289 K/MM3 (134-434); RDW 17.9 % (11.9-15.9)
[2017-05-25 07:32] LABS: INR 2.35 (0.82-1.09); PROTHROMBIN TIME (PATIENT) 26.6 SEC (9.98-11.88)
[2017-05-25 07:57] LABS: ALBUMIN 2.4 g/dl (3.4-5.0); ANION GAP 9 (8-16); BILIRUBIN,TOTAL 0.5 mg/dL (0.2-1.0); CALCIUM 7.8 mg/dL (8.5-10.1); CO2 25 mmol/L (21-32); CREATININE 0.6 mg/dL (0.7-1.3); GLUCOSE,RANDOM 101 mg/dL (74-106); SGOT/AST 21 U/L (15-37); SGPT/ALT 29 U/L (12-78); TOT PROT 6.2 g/dl (6.4-8.2)
[2017-05-25 07:58] LABS: ALK PHOS 71 U/L (45-117)
[2017-05-25] MEDS: TAMSULOSIN HCL 0.4 MG CAP.ER.24H (FP) PO SCH (08:46)
[2017-05-25] MEDS: CEFTRIAXONE 1 G/50 ML PREMIX 50 ML IVPB SCH (10:37)
[2017-05-25] MEDS: FOLIC ACID 1 MG TABLET (FP) PO SCH (10:37)
[2017-05-25] MEDS: sitaGLIPtin PHOSPHATE 100 MG TABLET (FP) PO SCH (10:37)
[2017-05-25] MEDS: PANTOPRAZOLE 40 MG TABLET (FP) PO SCH (10:37)
[2017-05-25] MEDS: METOPROLOL TARTRATE 50 MG TABLET (FP) PO SCH ×2 (10:37→22:47)
[2017-05-25] MEDS: EZETIMIBE 10 MG TABLET (FP) PO SCH (10:37)
[2017-05-25] MEDS: GABAPENTIN 100 MG CAPSULE (FP) PO SCH ×2 (10:37→22:48)
[2017-05-25] MEDS: metFORMIN HCL 500 MG TABLET (FP) PO SCH (10:37)
[2017-05-25] MEDS: AZITHROMYCIN IVPB 500 MG in DEXTROSE 5%-WATER - 250 ML IVPB SCH ×2 (11:32→12:29)
[2017-05-25] MEDS: DUTASTERIDE 0.5 MG CAP (FP) PO SCH (11:32)
[2017-05-25] MEDS: CLOTRIMAZOLE 1% CREAM 15 GM TUBE TP SCH (11:33)
--- NOTE | 2017-05-25 12:53 | PN ---
Progress Note (short form) - Note Progress Note: feels well no complaints Vital Signs Period Temp Pulse Resp BP Sys/Giordano Pulse Ox Last 24 Hr 98.1 F-99.1 F 92-100 18-18 126-154/65-74 98 cor-rrr lungs decreased bs at right base abd soft,nt LLE amputation CBC, BMP 05/25/17 06:27 05/25/17 06:27 Microbiology 05/24/17 08:30 Sputum - Expectorated Gram Stain - Final 05/24/17 08:30 Sputum - Expectorated Sputum Culture - Preliminary NORMAL RESPIRATORY ADRIANA 05/21/17 03:18 Blood - Peripheral Venous Blood Culture - Preliminary NO GROWTH OBTAINED AFTER 72 HOURS, INCUBATION TO CONTINUE FOR 2 DAYS. 05/21/17 22:40 Blood - Peripheral Venous Blood Culture - Preliminary NO GROWTH OBTAINED AFTER 72 HOURS, INCUBATION TO CONTINUE FOR 2 DAYS. 05/22/17 20:30 Urine For Antigen Detection Legionella Antigen - Final 05/22/17 20:30 Urine For Antigen Detection Streptococcus pneumoniae Antigen (M - Final 05/21/17 23:32 Nasopharyngeal Swab Influenza Types A,B Antigen (PONCHO) - Final 05/21/17 23:32 Nasopharyngeal Swab - Final a/p doing well on treatment for pneumonia - day #4 antibiotics leukocytosis resolving continue rocephin- ?switch to po antibiotics in am switch to po zithromax history of lung cancer on tarceva
[2017-05-25] MEDS ORDERED: AZITHROMYCIN 250 MG TABLET PO SCH (13:00)
--- NOTE | 2017-05-25 13:41 | PN ---
Progress Note, Physician History of Present Illness: Pt w/o fever, chills, CP, palp, abd pain Pt still coughs, less. - Current Medication List Current Medications: Active Medications Albuterol Sulfate (Ventolin 0.083% Nebulizer Soln -) 1 amp NEB Q6H PRN PRN Reason: SHORT OF BREATH/WHEEZING Azithromycin (Zithromax -) 250 mg PO DAILY [facility] Dutasteride (Avodart -) 0.5 mg PO DAILY [facility] Last Admin: 05/25/17 11:32 Dose: 0.5 mg Ezetimibe (Zetia -) 10 mg PO DAILY [facility] Last Admin: 05/25/17 10:37 Dose: 10 mg Folic Acid (Folic Acid -) 1 mg PO DAILY [facility] Last Admin: 05/25/17 10:37 Dose: 1 mg Gabapentin (Neurontin -) 100 mg PO BID [facility] Last Admin: 05/25/17 10:37 Dose: 100 mg CEFTRIAXONE 1 G/50 ML PREMIX (Ceftriaxone 1 Gm-D5w Bag) 50 mls @ 100 mls/hr IVPB DAILY [facility] Last Admin: 05/25/17 10:37 Dose: 100 mls/hr Insulin Aspart (Novolog Vial Sliding Scale -) 1 vial SQ ACHS [facility] PRN Reason: Protocol Last Admin: 05/25/17 12:13 Dose: 4 units Losartan Potassium (Cozaar -) 25 mg PO HS [facility] Last Admin: 05/24/17 22:41 Dose: 25 mg Metformin HCl (Glucophage -) 500 mg PO DAILY@0700 [facility] Metoclopramide HCl (Reglan -) 5 mg PO HS [facility] Last Admin: 05/24/17 22:42 Dose: 5 mg Metoprolol Tartrate (Lopressor -) 50 mg PO BID [facility] Last Admin: 05/25/17 10:37 Dose: 50 mg Pnt's Own Med( Erlotinib Hcl [ Tarceva] 25 Mg) 50 mg PO DAILY@0600 [facility] Last Admin: 05/25/17 06:54 Dose: 50 mg Pantoprazole Sodium (Protonix -) 40 mg PO DAILY [facility] Last Admin: 05/25/17 10:37 Dose: 40 mg Rosuvastatin Calcium (Crestor -) 5 mg PO HS [facility] Last Admin: 05/24/17 22:41 Dose: 5 mg Sitagliptin Phosphate (Januvia -) 100 mg PO DAILY@0700 [facility] Tamsulosin HCl (Flomax -) 0.4 mg PO DAILY@0830 [facility] Last Admin: 05/25/17 08:46 Dose: 0.4 mg - Objective Vital Signs: Vital Signs Temperature 99.1 F 05/25/17 06:00 Pulse Rate 100 H 05/25/17 06:00 Respiratory Rate 18 05/25/17 06:00 Blood Pressure 154/74 05/25/17 06:00 O2 Sat by Pulse Oximetry (%) 98 05/24/17 22:00 Constitutional: Yes: No Distress, Calm Cardiovascular: Yes: Regular Rate and Rhythm, S1, S2 Respiratory: Yes: Regular, Rhonchi Gastrointestinal: Yes: Normal Bowel Sounds, Soft. No: Tenderness Edema: No Neurological: Yes: Alert, Oriented Labs: CBC, BMP 05/25/17 06:27 05/25/17 06:27 INR, PTT INR 2.35 (0.82-1.09) H 05/25/17 06:27 Problem List - Problems (1) Pneumonia Code(s): J18.9 - PNEUMONIA, UNSPECIFIED ORGANISM (2) Lung cancer Code(s): C34.90 - MALIGNANT NEOPLASM OF UNSP PART OF UNSP BRONCHUS OR LUNG (3) Sepsis Code(s): A41.9 - SEPSIS, UNSPECIFIED ORGANISM (4) Lactic acid acidosis Code(s): E87.2 - ACIDOSIS (5) Myeloproliferative disorder Code(s): D47.1 - CHRONIC MYELOPROLIFERATIVE DISEASE (6) Subtherapeutic anticoagulation Code(s): Z51.81 - ENCOUNTER FOR THERAPEUTIC DRUG LEVEL MONITORING Z79.01 - [employer] (CURRENT) USE OF ANTICOAGULANTS (7) Diabetes mellitus Code(s): E11.9 - TYPE 2 DIABETES MELLITUS WITHOUT COMPLICATIONS Qualifiers: Diabetes mellitus type: type 2 Diabetes mellitus complication detail: with other circulatory complications Assessment/Plan IV abtx To DC iVF ID, Pulmonary, Onco consults appreciated. f/u BGM AM labs. Resume Coumadin Case was d/w pt's nurse.
[2017-05-25] MEDS: AZITHROMYCIN 250 MG TABLET PO SCH (13:58)
--- NOTE | 2017-05-25 16:10 | PN ---
Progress Note (short form) - Note Progress Note: PULMONARY VSS/AFEBRILE ANICTERIC DIMINISHED BREATH SOUNDS RIGHT S1S2 BS+ LEFT AKA MEDS/LABS/IMAGING/NOTES/REVIEWED Pneumonia Recurrent Lung Ca on Tarceva Atrial Fibrillation COPD PAD s/p L AKA Myeloproliferative Disorder - continue antibiotics - inhaled bronchodilators - O2 as needed - continue tarceva - DVT prophylaxis - anticoagulation Raman STEVENS MD
[2017-05-25] MEDS ORDERED: WARFARIN NA 2 MG TABLET (UD) PO SCH (18:00)
--- NOTE | 2017-05-25 19:02 | PN ---
Progress Note (short form) - Note Progress Note: Pt seen and examined Feels much better Cor: RSR, No murmurs, No gallops Lungs: Clear to P&A Abd: Soft, Normal bowel sounds, No organomegaly Ext:No significant edema Skin: No rashes, Integument intact Last Vital Signs Temp Pulse Resp BP Pulse Ox 98.3 F 89 20 145/77 97 05/25/17 13:56 05/25/17 13:56 05/25/17 10:00 05/25/17 13:56 05/25/17 09:00 CBC, BMP 05/25/17 06:27 05/25/17 06:27 Current Medications Generic Name Dose Route Start Last Admin Trade Name Freq PRN Reason Stop Dose Admin Albuterol Sulfate 1 amp 05/24/17 11:24 Ventolin 0.083% Nebulizer Soln - NEB Q6H PRN SHORT OF BREATH/WHEEZING Azithromycin 250 mg 05/25/17 13:15 05/25/17 13:58 Zithromax - PO 250 mg DAILY [facility] Administration Dutasteride 0.5 mg 05/22/17 10:00 05/25/17 11:32 Avodart - PO 0.5 mg DAILY [facility] Administration Ezetimibe 10 mg 05/23/17 10:00 05/25/17 10:37 Zetia - PO 10 mg DAILY [facility] Administration Folic Acid 1 mg 05/22/17 10:00 05/25/17 10:37 Folic Acid - PO 1 mg DAILY [facility] Administration Gabapentin 100 mg 05/22/17 10:00 05/25/17 10:37 Neurontin - PO 100 mg BID [facility] Administration CEFTRIAXONE 1 G/50 ML PREMIX 50 mls @ 100 mls/hr 05/23/17 08:24 05/25/17 10:37 Ceftriaxone 1 Gm-D5w Bag IVPB 100 mls/hr DAILY [facility] Administration Insulin Aspart 1 vial 05/23/17 16:30 05/25/17 17:44 Novolog Vial Sliding Scale - SQ Not Given ACHS [facility] Protocol Losartan Potassium 25 mg 05/22/17 22:00 05/24/17 22:41 Cozaar - PO 25 mg HS [facility] Administration Metformin HCl 500 mg 05/26/17 07:00 Glucophage - PO DAILY@0700 [facility] Metoclopramide HCl 5 mg 05/22/17 22:00 05/24/17 22:42 Reglan - PO 5 mg HS [facility] Administration Metoprolol Tartrate 50 mg 05/22/17 22:00 05/25/17 10:37 Lopressor - PO 50 mg BID [facility] Administration Pnt's Own Med( 50 mg 05/24/17 06:00 05/25/17 06:54 Erlotinib Hcl [ PO 50 mg Tarceva] 25 Mg) DAILY@0600 [facility] Administration Pantoprazole Sodium 40 mg 05/22/17 10:00 05/25/17 10:37 Protonix - PO 40 mg DAILY [facility] Administration Rosuvastatin Calcium 5 mg 05/22/17 22:00 05/24/17 22:41 Crestor - PO 5 mg HS [facility] Administration Sitagliptin Phosphate 100 mg 05/26/17 07:00 Januvia - PO DAILY@0700 [facility] Tamsulosin HCl 0.4 mg 05/22/17 13:20 05/25/17 08:46 Flomax - PO 0.4 mg DAILY@0830 [facility] Administration Warfarin Sodium 2 mg 05/25/17 18:00 05/25/17 17:46 Coumadin - PO 2 mg DAILY@1800 [facility] Administration 81 y/o patient with metastatiic lung cancer and myeloproliferative disorder, being treated for pneumonia Is on tarceva, continue White count improved Clinically improved on rocephin f/u in office post discharge
[2017-05-25] MEDS: LOSARTAN POTASSIUM 25 MG TABLET PO SCH (22:47)
[2017-05-25] MEDS: ROSUVASTATIN CA 5 MG TABLET (FP) PO SCH (22:47)
[2017-05-25] MEDS: METOCLOPRAMIDE HCL 10 MG TABLET (FP) PO SCH (22:48)
[2017-05-26] MEDS: ERLOTINIB PO SCH (06:21)
[2017-05-26] MEDS: INSULIN SLIDING SCALE (NOVOLOG) 1 VIAL SQ SCH ×2 (06:22→11:57)
[2017-05-26] MEDS ORDERED: sitaGLIPtin PHOSPHATE 100 MG TABLET (FP) PO SCH (07:00)
[2017-05-26] MEDS ORDERED: metFORMIN HCL 500 MG TABLET (FP) PO SCH (07:00)
[2017-05-26 07:39] LABS: MCH 24.8 pg (25.7-33.7); MCHC 32.3 g/dl (32.0-35.9); MEAN CELL VOLUME 76.7 fl (80-96); MEAN PLT VOLUME 8.9 fl (7.5-11.1); PLATELET COUNT 334 K/MM3 (134-434); RDW 17.7 % (11.9-15.9); WHITE BLOOD COUNT 16.4 K/mm3 (4.0-10.0)
[2017-05-26 07:45] LABS: INR 3.17 (0.82-1.09); PROTHROMBIN TIME (PATIENT) 35.8 SEC (9.98-11.88)
[2017-05-26 08:09] LABS: ANION GAP 10 (8-16); CALCIUM 8.3 mg/dL (8.5-10.1); CO2 27 mmol/L (21-32); CREATININE 0.7 mg/dL (0.7-1.3); GLUCOSE,RANDOM 119 mg/dL (74-106)
[2017-05-26 09:41] VITALS: BP 149/74; PULSE 87; TEMP 97.3
--- NOTE | 2017-05-26 11:31 | PN ---
Progress Note (short form) - Note Progress Note: PULMONARY Continues to feel better. Denies shortness of breath. No fevers or chills. Cough improving. Last Vital Signs Temp Pulse Resp BP Pulse Ox 97.3 F L 87 18 149/74 97 05/26/17 09:40 05/26/17 09:40 05/26/17 09:40 05/26/17 09:40 05/25/17 21:00 Gen: NAD at rest Heart: RRR Lung: decreased breath sounds at the bases Abd: soft, nontender Ext: L AKA CBC, BMP 05/26/17 06:50 05/26/17 06:50 Active Medications Albuterol Sulfate (Ventolin 0.083% Nebulizer Soln -) 1 amp NEB Q6H PRN PRN Reason: SHORT OF BREATH/WHEEZING Azithromycin (Zithromax -) 250 mg PO DAILY [facility] Last Admin: 05/25/17 13:58 Dose: 250 mg Dutasteride (Avodart -) 0.5 mg PO DAILY [facility] Last Admin: 05/25/17 11:32 Dose: 0.5 mg Ezetimibe (Zetia -) 10 mg PO DAILY [facility] Last Admin: 05/25/17 10:37 Dose: 10 mg Folic Acid (Folic Acid -) 1 mg PO DAILY [facility] Last Admin: 05/25/17 10:37 Dose: 1 mg Gabapentin (Neurontin -) 100 mg PO BID [facility] Last Admin: 05/25/17 22:48 Dose: 100 mg CEFTRIAXONE 1 G/50 ML PREMIX (Ceftriaxone 1 Gm-D5w Bag) 50 mls @ 100 mls/hr IVPB DAILY [facility] Last Admin: 05/25/17 10:37 Dose: 100 mls/hr Insulin Aspart (Novolog Vial Sliding Scale -) 1 vial SQ ACHS [facility] PRN Reason: Protocol Last Admin: 05/26/17 06:22 Dose: Not Given Losartan Potassium (Cozaar -) 25 mg PO HS [facility] Last Admin: 05/25/17 22:47 Dose: 25 mg Metformin HCl (Glucophage -) 500 mg PO DAILY@0700 [facility] Last Admin: 05/26/17 06:21 Dose: 500 mg Metoclopramide HCl (Reglan -) 5 mg PO HS [facility] Last Admin: 05/25/17 22:48 Dose: 5 mg Metoprolol Tartrate (Lopressor -) 50 mg PO BID [facility] Last Admin: 05/25/17 22:47 Dose: 50 mg Pnt's Own Med( Erlotinib Hcl [ Tarceva] 25 Mg) 50 mg PO DAILY@0600 [facility] Last Admin: 05/26/17 06:21 Dose: 50 mg Pantoprazole Sodium (Protonix -) 40 mg PO DAILY [facility] Last Admin: 05/25/17 10:37 Dose: 40 mg Rosuvastatin Calcium (Crestor -) 5 mg PO HS [facility] Last Admin: 05/25/17 22:47 Dose: 5 mg Sitagliptin Phosphate (Januvia -) 100 mg PO DAILY@0700 [facility] Last Admin: 05/26/17 06:21 Dose: 100 mg Tamsulosin HCl (Flomax -) 0.4 mg PO DAILY@0830 [facility] Last Admin: 05/25/17 08:46 Dose: 0.4 mg Warfarin Sodium (Coumadin -) 2 mg PO DAILY@1800 [facility] Last Admin: 05/25/17 17:46 Dose: 2 mg A/P Pneumonia Recurrent Lung Ca on Tarceva Atrial Fibrillation COPD PAD s/p L AKA Myeloproliferative Disorder - complete antibiotics - inhaled bronchodilators - O2 as needed - continue tarceva - DVT prophylaxis
[2017-05-26] MEDS ORDERED: PT OWN MED DRAWER 7, Y5N ONE (11:51)
[2017-05-26] MEDS: TAMSULOSIN HCL 0.4 MG CAP.ER.24H (FP) PO SCH (11:53)
[2017-05-26] MEDS: PANTOPRAZOLE 40 MG TABLET (FP) PO SCH (11:54)
[2017-05-26] MEDS: EZETIMIBE 10 MG TABLET (FP) PO SCH (11:54)
[2017-05-26] MEDS: DUTASTERIDE 0.5 MG CAP (FP) PO SCH (11:55)
[2017-05-26] MEDS: AZITHROMYCIN 250 MG TABLET PO SCH (11:55)
[2017-05-26] MEDS: GABAPENTIN 100 MG CAPSULE (FP) PO SCH (11:55)
[2017-05-26] MEDS: METOPROLOL TARTRATE 50 MG TABLET (FP) PO SCH (11:55)
[2017-05-26] MEDS: FOLIC ACID 1 MG TABLET (FP) PO SCH (11:55)
[2017-05-26] MEDS: CEFTRIAXONE 1 G/50 ML PREMIX 50 ML IVPB SCH (11:56)
--- NOTE | 2017-05-26 13:09 | DS ---
Physical Examination Vital Signs: Vital Signs Temperature 97.3 F L 05/26/17 09:40 Pulse Rate 87 05/26/17 09:40 Respiratory Rate 18 05/26/17 09:40 Blood Pressure 149/74 05/26/17 09:40 O2 Sat by Pulse Oximetry (%) 97 05/26/17 09:00 Findings/Remarks: Pt w/o F, C, CP, abd pain. Pt with improvement in cough. Constitutional: Yes: No Distress, Calm Cardiovascular: Yes: Regular Rate and Rhythm, S1, S2 Respiratory: Yes: Regular, Rales (improved) Gastrointestinal: Yes: Normal Bowel Sounds, Soft Edema: No Neurological: Yes: Alert, Oriented Psychiatric: Yes: Alert, Oriented Labs: CBC, BMP 05/26/17 06:50 05/26/17 06:50 Discharge Summary Reason For Visit: FEVER,DYSPNEA, MALIGNANT NEOPLASM OF LUNG Current Active Problems Dyspnea (Acute) Pneumonia (Acute) Sepsis (Acute) Tachycardia (Acute) Lung cancer (Chronic) Hospital Course: Pt with Hx/o Lung CA, s/p lung surgery, cam eto ER c/o Cough and SOB; pt it was noticed in ER to have elevated WBC (49K). Pt was started on IV abtx, with improvement in symptoms and WBC. Pt woould be DC'ed on PO abtx and outpatient f/ u. Condition: Guarded - Instructions Diet, Activity, Other Instructions: Resume home diet. No Coumadin tonight, restart 1mg (on Tuesday) alternating with 2 mg. INR Tuesday. Resume home medications. Referrals: Brent Barrett MD [Primary Care Provider] - Brent Roberts MD [Staff Physician] - (in 1-2 weeks) Disposition: HOME - Home Medications Comprehensive Discharge Medication List: Ambulatory Orders this might NOT be accurate Dutasteride [Avodart] 0.5 mg PO DAILY 01/06/16 Losartan Potassium [Cozaar -] 25 mg PO HS 01/06/16 Metformin HCl 500 mg PO DAILY 01/06/16 Sitagliptin Phosphate [Januvia] 100 mg PO DAILY 01/06/16 Warfarin Sodium [Coumadin] 1 mg alternating with 2 mg PO DAILY #90 tablet Erlotinib HCl [Tarceva] 50 mg PO DAILY 05/22/17 Ezetimibe 10 mg PO DAILY 05/22/17 Metoprolol Succinate [Toprol Xl] 100 mg PO DAILY 05/22/17 Warfarin Na [Coumadin] 1 mg PO HS 05/22/17
[2017-05-26] MEDS ORDERED: CEPHALEXIN MONOHYDRATE 500 MG CAPSULE (UD) PO SCH (14:00)
== END 2017-05-26 14:08 | disposition home or self-care (01) | DRG 194 ==
LOC: JER 20:38 → JERBED 22:54 → J5S 05-22 16:00
PROVIDERS: ADMIT Specialist; ATTEND Specialist
DX: J18.9 Pneumonia, unspecified organism (principal); E87.2 Acidosis; D47.1 Chronic myeloproliferative disease; I48.91 Unspecified atrial fibrillation; I10 Essential (primary) hypertension; K21.9 Gastro-esophageal reflux disease without esophagitis; E11.51 Type 2 diabetes mellitus with diabetic peripheral angiopathy without gangrene; N40.0 Benign prostatic hyperplasia without lower urinary tract symptoms; J44.9 Chronic obstructive pulmonary disease, unspecified; R63.4 Abnormal weight loss; Z68.24 Body mass index [BMI] 24.0-24.9, adult; M19.90 Unspecified osteoarthritis, unspecified site; D72.828 Other elevated white blood cell count; Z79.01 Long term (current) use of anticoagulants; Z89.612 Acquired absence of left leg above knee; Z87.891 Personal history of nicotine dependence; Z85.118 Personal history of other malignant neoplasm of bronchus and lung
CPT/HCPCS: 36415; 71010-TC; 71260-TC; 74177-TC; 80048; 80053; 82550; 83605; 83880; 84484; 85025; 85027; 85610; 85730; 86140; 87040; 87070; 87205; 87804; 87899; 93005; 93010; 99285-25; C1887; Q9967

== ENCOUNTER 2017-08-03 13:24 | Inpatient (IN) | payer OTHER ==
--- NOTE | 2017-08-03 13:45 | PDOC ---
Rapid Medical Evaluation Chief Complaint: Pain, Acute Time Seen by Provider: 08/03/17 13:38 Medical Evaluation: Allergies Allergy/AdvReac Type Severity Reaction Status Date / Time vancomycin Allergy Severe Verified 08/03/17 13:42 08/03/17 13:43 I have performed a brief in-person evaluation of this patient. The patient presents with a chief complaint of: R leg pain this am, H/o lung ca , s/p surgery, currently on chemo, HTN, NIDDM, s/p L AKA 2/2 ?PVD per son Pertinent physical exam findings: R lower leg diffusely cold to touch w/ no palpable pedal pulses, R foot/toes appears dusky, concern for acute arterial occlusion I have ordered the following:Labs and send immediately to ER The patient will proceed to the ED for further evaluation.
[2017-08-03 14:09] LABS: HEMATOCRIT 46.8 % (35.4-49); HEMOGLOBIN 14.5 GM/dL (11.7-16.9); MCH 24.1 pg (25.7-33.7); MEAN CELL VOLUME 77.7 fl (80-96); MEAN PLT VOLUME 8.7 fl (7.5-11.1); PLATELET COUNT 447 K/MM3 (134-434); RBC 6.02 M/mm3 (4.00-5.60); RDW 18.9 % (11.9-15.9); WHITE BLOOD COUNT 16.6 K/mm3 (4.0-10.0)
[2017-08-03 14:38] LABS: ALBUMIN 3.1 g/dl (3.4-5.0); ANION GAP 12 (8-16); BILIRUBIN,TOTAL 0.6 mg/dL (0.2-1.0); BLOOD UREA NITROGEN 12 mg/dL (7-18); CALCIUM 9.2 mg/dL (8.5-10.1); CHLORIDE 103 mmol/L (98-107); CO2 24 mmol/L (21-32); GLUCOSE,RANDOM 128 mg/dL (74-106); POTASSIUM 4.5 mmol/L (3.5-5.1); SGOT/AST 21 U/L (15-37); SGPT/ALT 22 U/L (12-78); SODIUM 139 mmol/L (136-145); TOT PROT 7.9 g/dl (6.4-8.2)
[2017-08-03 14:41] LABS: ALK PHOS 91 U/L (45-117)
[2017-08-03 15:29] LABS: INR 3.54 (0.82-1.09)
[2017-08-03 15:58] LABS: PLATELET ESTIMATE ADEQUATE
[2017-08-03] MEDS ORDERED: morphine CARPU-JECT 2 MG/1 ML DISP.SYRIN IVPUSH ONE (16:49)
--- NOTE | 2017-08-03 16:54 | PDOC ---
History of Present Illness - General History Source: Family (Son) Exam Limitations: No Limitations - History of Present Illness Initial Comments: 08/03/17 17:02 Patient is a 82 year old male with a significant past medical history of x/o Lung CA, s/p Right Lobectomy, on Tarceva, Diabetes, HTN who presents to the ED with complaints of decreased right leg circulation that began this morning. As per patient's son patient began experiencing decreased right lower leg circulation as well as lower lower leg rash suddenly this morning while at home. Patient's son states patient's leg initially had purple/black coloration but has since begun to appear normal. Patient's son states patient initially experienced 9/10 lower right leg pain this morning but currently feel 7/10 leg pain while here in the ED. He reports patient experienced similar episode in November 2016 where his right leg began to turn slightly blue while feeling cold to touch. Patient's son states patient currently has prosthetic left leg beginning at the knee due to same condition. Denies chest pain, SOB. Denies nausea, vomiting. Denies contact with sick individuals, out of state travel. Denies any other symptoms. Allergies: Vancomycin Social history: Lives with . Former smoker. No alcohol. No illicit drugs. Surgical history: Left left stent. Left leg knee amputee. PMD Dr. Brent Roberts Vascular: Dr. Davenport <Moe Zambrano - Last Filed: 08/03/17 17:02> <Yodit Bonilla - Last Filed: 08/03/17 23:15> - General Chief Complaint: Pain, Acute Stated Complaint: RT FOOT INFECTION/ WOUND Time Seen by Provider: 08/03/17 13:38 Past History <Moe Zambrano - Last Filed: 08/03/17 17:02> - Past Medical History Anemia: No Asthma: No Cancer: Yes (R LUNG S/P RADIATION) Cardiac Disorders: Yes (afib) CVA: No COPD: No CHF: No DVT: No Dementia: No Diabetes: Yes GI Disorders: Yes (REFLUX) Disorders: Yes (ENLARGED PROSTATE) HTN: Yes Hypercholesterolemia: Yes Liver Disease: No Seizures: No Thyroid Disease: No - Surgical History Abdominal Surgery: No Appendectomy: No Cardiac Surgery: No Cholecystectomy: No Lung Surgery: Yes (R LUNG CA) Neurologic Surgery: No 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) - Immunization History Immunization Up to Date: Yes - Suicide/Smoking/Psychosocial Hx Smoking Status: No Smoking History: Former smoker Have you smoked in the past 12 months: No Number of Cigarettes Smoked Daily: 0 If you are a former smoker, when did you quit?: 1983 Information on smoking cessation initiated: No Hx Alcohol Use: No Drug/Substance Use Hx: No Substance Use Type: None Hx Substance Use Treatment: No <Yodit Bonilla - Last Filed: 08/03/17 23:15> - Past Medical History Allergies/Adverse Reactions: Allergies Allergy/AdvReac Type Severity Reaction Status Date / Time vancomycin Allergy Severe Verified 08/03/17 13:42 Home Medications: Ambulatory Orders Losartan Potassium [Cozaar -] 50 mg PO HS 01/06/16 Metformin HCl 500 mg PO DAILY 01/06/16 Erlotinib HCl [Tarceva] 50 mg PO DAILY 05/22/17 Ezetimibe 10 mg PO DAILY 05/22/17 Metoprolol Succinate [Toprol Xl] 100 mg PO DAILY 05/22/17 Warfarin Na [Coumadin -] 1 mg PO ASDIR 05/22/17 Metoclopramide HCl [Reglan -] 5 mg PO HS tablet 05/26/17 Sitagliptin Phosphate [Januvia -] 100 mg PO DAILY@0700 #30 tablet 05/26/17 Aspirin [ASA -] 81 mg PO DAILY 08/03/17 Warfarin Sodium [Coumadin] 2 mg PO ASDIR 08/03/17 Review of Systems - Review of Systems Able to Perform ROS?: Yes Comments:: 08/03/17 17:04 GENERAL/CONSTITUTIONAL: No fever or chills. No weakness. HEAD, EYES, EARS, NOSE AND THROAT: No change in vision. No ear pain or discharge. No sore throat. GASTROINTESTINAL: No nausea, vomiting, diarrhea or constipation. GENITOURINARY: No dysuria, frequency, or change in urination. CARDIOVASCULAR: No chest pain or shortness of breath. RESPIRATORY: No cough, wheezing, or hemoptysis. MUSCULOSKELETAL: +Right leg pain. No joint or muscle swelling. No neck or back pain. SKIN: +Right leg rash NEUROLOGIC: No headache, vertigo, loss of consciousness, or change in strength/ sensation. ENDOCRINE: No increased thirst. No abnormal weight change. HEMATOLOGIC/LYMPHATIC: +decreased right leg circulation. No anemia, easy bleeding. ALLERGIC/IMMUNOLOGIC: No hives or skin allergy. <Moe Zambrano - Last Filed: 08/03/17 17:02> *Physical Exam - Vital Signs Last Vital Signs Temp Pulse Resp BP Pulse Ox 97.3 F L 101 H 17 184/91 99 08/03/17 13:42 08/03/17 16:05 08/03/17 13:42 08/03/17 16:05 08/03/17 16:05 <Moe Zambrano - Last Filed: 08/03/17 17:02> - Vital Signs Last Vital Signs Temp Pulse Resp BP Pulse Ox 97.3 F L 101 H 17 184/91 99 08/03/17 13:42 08/03/17 16:05 08/03/17 13:42 08/03/17 16:05 08/03/17 16:05 - Physical Exam Comments: GENERAL: Awake, alert, and fully oriented, in no acute distress HEAD: No signs of trauma EYES: PERRLA, EOMI, sclera anicteric, conjunctiva clear ENT: Auricles normal inspection, hearing grossly normal, nares patent, oropharynx clear without exudates. Moist mucosa NECK: Normal ROM, supple, no lymphadenopathy, JVD, or masses LUNGS: Breath sounds equal, clear to auscultation bilaterally. No wheezes, and no crackles HEART: Regular rate and rhythm, normal S1 and S2, no murmurs, rubs or gallops ABDOMEN: Soft, nontender, normoactive bowel sounds. No guarding, no rebound. No masses EXTREMITIES: RLE cool, 4th and 5th toes dusky. No palpable pulses. Cap refill < 2s. L AKA. NEUROLOGICAL: Cranial nerves II through XII grossly intact. Normal speech. SKIN: Warm, Dry, normal turgor, no rashes or lesions noted. <Yodit Bonilla - Last Filed: 08/03/17 23:15> ED Treatment Course - LABORATORY CBC & Chemistry Diagram: 08/03/17 13:57 08/03/17 13:57 - ADDITIONAL ORDERS Additional order review: Laboratory Results 08/03/17 08/03/17 08/03/17 13:57 13:57 13:57 PT with INR 40.00 H INR 3.54 H Sodium 139 Potassium 4.5 Chloride 103 Carbon Dioxide 24 Anion Gap 12 BUN 12 Creatinine 1.0 D Creat Clearance w eGFR > 60 Random Glucose 128 H Calcium 9.2 Total Bilirubin 0.6 AST 21 ALT 22 D Alkaline Phosphatase 91 D Creatine Kinase 43 Troponin I < 0.02 Total Protein 7.9 D Albumin 3.1 L D Blood Type O NEGATIVE Antibody Screen Negative 08/03/17 13:57 RBC 6.02 H MCV 77.7 L MCHC 31.0 L RDW 18.9 H MPV 8.7 Neutrophils % No Result Required. Lymphocytes % No Result Required. <Moe Zambrano - Last Filed: 08/03/17 17:02> - LABORATORY CBC & Chemistry Diagram: 08/03/17 13:57 08/03/17 13:57 - ADDITIONAL ORDERS Additional order review: Laboratory Results 08/03/17 08/03/17 08/03/17 13:57 13:57 13:57 PT with INR 40.00 H INR 3.54 H Sodium 139 Potassium 4.5 Chloride 103 Carbon Dioxide 24 Anion Gap 12 BUN 12 Creatinine 1.0 D Creat Clearance w eGFR > 60 Random Glucose 128 H Calcium 9.2 Total Bilirubin 0.6 AST 21 ALT 22 D Alkaline Phosphatase 91 D Creatine Kinase 43 Troponin I < 0.02 Total Protein 7.9 D Albumin 3.1 L D Blood Type O NEGATIVE Antibody Screen Negative 08/03/17 13:57 RBC 6.02 H MCV 77.7 L MCHC 31.0 L RDW 18.9 H MPV 8.7 Neutrophils % No Result Required. Lymphocytes % No Result Required. - RADIOLOGY Radiology Studies Ordered: Category Date Time Status DUPLEX ART. LOWER COMPL US [US] Stat Ultrasound 08/03/17 16:41 Ordered <Yodit Bonilla - Last Filed: 08/03/17 23:15> Medical Decision Making - Medical Decision Making 08/03/17 16:48 Pt's INR is 3.54, will not start on heparin at present. He has old ultrasound results from November 2016 which showed 20-49% stenosis on the R side. I suspect it is worsening now and may be almost completely occluded. Will give patient medication for pain. I discussed with Dr. Robertson, who is covering Dr. Davenport. He recommended CTA. Will evaluate in ED as well. I will plan for admission pending CTA results. 08/03/17 22:29 haritha Dobbs- [phone]. <Yodit Bonilla - Last Filed: 08/03/17 23:15> *DC/Admit/Observation/Transfer - Attestations Scribe Attestion: 08/03/17 17:06 Documentation prepared by Moe Zambrano, acting as nuclear medical technologist for Yodit Bonilla MD, /DO. <Moe Zambrano - Last Filed: 08/03/17 17:02> - Discharge Dispostion Admit: Yes <Yodit Bonilla - Last Filed: 08/03/17 23:15> Diagnosis at time of Disposition: Arterial occlusion, lower extremity - Discharge Dispostion Condition at time of disposition: Guarded
[2017-08-03] MEDS ORDERED: SODIUM CHLORIDE 1,000 ML IV SCH (17:00)
--- NOTE | 2017-08-03 17:19 | PN ---
Progress Note (short form) - Note Progress Note: VAscular surgery Pt seen and examined in ER History of right fem-pop back in 2013. Pt with history of left aka. Pt comes in with two day history of left leg pain. Pt with INR of 3.5. PE Right leg cool to touch Motor and sensory are intact. No palpable pulses on foot. Pt going for CTA of aorta and bl lower ext runoff. R/O thrombosed bypass. Will follow Alexandro Robertson DO
[2017-08-03] MEDS ORDERED: ACETAMINOPHEN 1000 MG/100 ML VIAL (NON FORMULARY) IVPB ONE (18:26)
[2017-08-03] MEDS ORDERED: traMADol HCL 50 MG TABLET PO ONE (22:41)
[2017-08-03] MEDS ORDERED: traMADol HCL 50 MG TABLET ONE (22:53)
[2017-08-04 01:14] VITALS: BMI 23.4
[2017-08-04] MEDS ORDERED: ACETAMINOPHEN 1000 MG/100 ML VIAL (NON FORMULARY) IVPB ONE (03:49)
[2017-08-04] MEDS ORDERED: PT OWN MED DRAWER 7, Y5N ONE (04:15)
[2017-08-04] MEDS: INSULIN SLIDING SCALE (NOVOLOG) 1 VIAL SQ SCH ×4 (06:39→22:08)
[2017-08-04] MEDS: DEXTROSE 5%-NORMAL SALINE 1,000 ML IV SCH (06:40)
[2017-08-04 07:30] LABS: HEMATOCRIT 41.6 % (35.4-49); MCH 24.2 pg (25.7-33.7); MCHC 31.2 g/dl (32.0-35.9); MEAN CELL VOLUME 77.6 fl (80-96); MEAN PLT VOLUME 9.2 fl (7.5-11.1); PLATELET COUNT 402 K/MM3 (134-434); RBC 5.35 M/mm3 (4.00-5.60); RDW 18.7 % (11.9-15.9); WHITE BLOOD COUNT 11.3 K/mm3 (4.0-10.0)
[2017-08-04 07:42] LABS: PROTHROMBIN TIME (PATIENT) 51.2 SEC (9.98-11.88)
[2017-08-04 07:53] LABS: ALBUMIN 2.5 g/dl (3.4-5.0); ANION GAP 10 (8-16); BLOOD UREA NITROGEN 11 mg/dL (7-18); CALCIUM 8.4 mg/dL (8.5-10.1); CHLORIDE 107 mmol/L (98-107); CO2 23 mmol/L (21-32); CREATININE 0.8 mg/dL (0.7-1.3); GLUCOSE,RANDOM 93 mg/dL (74-106); POTASSIUM 4.2 mmol/L (3.5-5.1); SGOT/AST 17 U/L (15-37); SGPT/ALT 18 U/L (12-78); SODIUM 140 mmol/L (136-145)
[2017-08-04 07:55] LABS: ALK PHOS 73 U/L (45-117); BILIRUBIN,TOTAL 0.6 mg/dL (0.2-1.0); TOT PROT 6.5 g/dl (6.4-8.2)
[2017-08-04 08:50] LABS: URINE APPEARANCE CLEAR; URINE BILIRUBIN NEGATIVE (NEGATIVE); URINE BLOOD 1+ (NEGATIVE); URINE COLOR YELLOW; URINE GLUCOSE (UA) NEGATIVE (NEGATIVE); URINE KETONE NEGATIVE (NEGATIVE); URINE LEUK ESTERASE NEGATIVE (NEGATIVE); URINE NITRITE NEGATIVE (NEGATIVE); URINE PROTEIN NEGATIVE (NEGATIVE); URINE UROBILINOGEN NEGATIVE mg/dL (0.2-1.0)
[2017-08-04 08:53] LABS: INR 4.53 (0.82-1.09)
--- NOTE | 2017-08-04 09:27 | HP ---
Admitting History and Physical - Primary Care Physician PCP: Brent Roberts - Admission Chief Complaint: Leg pain. History of Present Illness: Pt with Hx/ Lung CA, L AKA, R leg stent, starting having pain in his right leg and discoloration of the foot 2 days ago; yesterday he camer to ER, admitted for acute stent/ bypass occlusion; pt didn't go to OR secondary to high INR. 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) Gastrointestinal: Yes: GERD Renal/: Yes: BPH Heme/Onc: Yes: Cancer (Lung CA), Myeloproliferative Synd Musculoskeletal: Yes: Osteoarthritis, Other (s/p left AKA) Endocrine: Yes: Diabetes Mellitus - Past Surgical History Past Surgical History: Yes: Amputation (left AKA), Bypass (RLE) - Smoking History Smoking history: Former smoker Have you smoked in the past 12 months: No Aproximately how many cigarettes per day: 0 If you are a former smoker, when did you quit?: 1983 - Alcohol/Substance Use Hx Alcohol Use: No History of Substance Use: reports: None - Social History ADL: Family Assistance History of Recent Travel: No Home Medications - Allergies Allergies/Adverse Reactions: Allergies Allergy/AdvReac Type Severity Reaction Status Date / Time vancomycin Allergy Severe Verified 08/03/17 13:42 - Home Medications Home Medications: Ambulatory Orders Losartan Potassium [Cozaar -] 50 mg PO HS 01/06/16 Metformin HCl 500 mg PO DAILY 01/06/16 Erlotinib HCl [Tarceva] 50 mg PO DAILY 05/22/17 Ezetimibe 10 mg PO DAILY 05/22/17 Metoprolol Succinate [Toprol Xl] 100 mg PO DAILY 05/22/17 Warfarin Na [Coumadin -] 1 mg PO ASDIR 05/22/17 Metoclopramide HCl [Reglan -] 5 mg PO HS tablet 05/26/17 Sitagliptin Phosphate [Januvia -] 100 mg PO DAILY@0700 #30 tablet 05/26/17 Aspirin [ASA -] 81 mg PO DAILY 08/03/17 Warfarin Sodium [Coumadin] 2 mg PO ASDIR 08/03/17 Family Disease History - Family Disease History Family Disease History: Heart Disease: Sister ([place] in her 60s; alive, in her 80s) Review of Systems - Review of Systems Constitutional: denies: Chills, Fever Eyes: denies: Blurred Vision, Double Vision, Recent Change in Vision HENT: denies: Difficult Swallowing, Ear Discharge, Ear Pain, Throat Pain Neck: denies: Pain on Movement, Stiffness Cardiovascular: denies: Chest Pain, Edema, Palpitations Respiratory: denies: Cough, SOB, Wheezing Gastrointestinal: denies: Abdominal Pain, Diarrhea, Vomiting Genitourinary: denies: Burning, Discharge Musculoskeletal: reports: Other (+ right leg leg pain, better now than yesterday ). denies: Back Pain Integumentary: reports: Change in Color (of right foot) Neurological: denies: Change in LOC, Change in Speech, Confusion, Numbness Endocrine: denies: Excessive Sweating, Intolerance to Cold Hematology/Lymphatic: denies: Easily Bruised, Excessive Bleeding Psychiatric: denies: Anxiety, Depression Physical Examination Vital Signs: Vital Signs Temperature 98.3 F 08/04/17 06:00 Pulse Rate 90 08/04/17 06:00 Respiratory Rate 18 08/04/17 06:00 Blood Pressure 146/83 08/04/17 06:00 O2 Sat by Pulse Oximetry (%) 97 08/04/17 01:19 Constitutional: Yes: No Distress, Calm Eyes: Yes: Conjunctiva Clear, PERRL HENT: No: Epistaxis, Pharyngeal Erythema, Rhinnorhea Neck: Yes: Trachea Midline. No: Lymphadenopathy Cardiovascular: Yes: Regular Rate and Rhythm, S1, S2 Respiratory: Yes: Regular, CTA Bilaterally Gastrointestinal: Yes: Normal Bowel Sounds, Soft. No: Hepatomegaly, Tenderness ...Rectal Exam: Yes: Deferred Renal/: No: CVA Tenderness - Left, CVA Tenderness - Right Musculoskeletal: Yes: Other (Right foot with bluish discoloration distal, cold to touch, no pain). No: Back Pain Extremities: Yes: Amputation (left AKA), Cool (right distal leg and foot) Edema: No Peripheral Pulses: Right Dorsalis Pedis: 0 Integumentary: Yes: Petechiae (of right distal leg) Neurological: Yes: Alert, Oriented Psychiatric: Yes: Alert, Oriented Labs: CBC, BMP 08/04/17 06:45 08/04/17 06:45 Imaging - Results Chest X-ray: Other (ordered) Problem List - Problems (1) Arterial occlusion, lower extremity Code(s): I70.209 - UNSP ATHSCL [place] ARTERIES OF EXTREMITIES, UNSP EXTREMITY (2) Supratherapeutic INR Code(s): R79.1 - ABNORMAL COAGULATION PROFILE (3) Lung cancer Code(s): C34.90 - MALIGNANT NEOPLASM OF UNSP PART OF UNSP BRONCHUS OR LUNG (4) Diabetes mellitus Code(s): E11.9 - TYPE 2 DIABETES MELLITUS WITHOUT COMPLICATIONS Qualifiers: Diabetes mellitus type: type 2 Diabetes mellitus complication detail: with other circulatory complications (5) S/P lobectomy of lung Assessment/Plan: s/p right lung lobectomy for adeno CA Code(s): Z90.2 - ACQUIRED ABSENCE OF LUNG [PART OF] (6) PVD (peripheral vascular disease) Code(s): I73.9 - PERIPHERAL VASCULAR DISEASE, UNSPECIFIED (7) History of left above knee amputation Code(s): Z89.612 - ACQUIRED ABSENCE OF LEFT LEG ABOVE KNEE (8) Paroxysmal atrial fibrillation Code(s): I48.0 - PAROXYSMAL ATRIAL FIBRILLATION Assessment/Plan Vasc Sx consult appreciated; case was d/w Dr. Robertson ( covering Dr. Davenport)- to monitor INR, no SX today. Cardio consult for Preop clearance Heme/ Onco consult for management of supratherapeutic INR. DM meds on hold AM labs Case was d/w pt's nurse.
--- NOTE | 2017-08-04 09:51 | CON.CARD ---
Consult Consult Specialty:: cardiology - History of Present Illness Chief Complaint: OOB in chair; family at bedside; c/o pain in right leg History of Present Illness: Patient is an 82 year old male with a significant past medical history of x/o Lung CA, s/p Right Lobectomy, on Tarceva, Diabetes, HTN , s/p left LE AKA, who presents to the ED with complaints of decreased right leg circulation that began this morning. As per patient's son patient began experiencing decreased right lower leg circulation as well as lower lower leg rash suddenly this morning while at home. Patient's son states patient's leg initially had purple/ black coloration but has since begun to appear normal. Patient's son states patient initially experienced 9/10 lower right leg pain this morning but currently feel 7/10 leg pain while here in the ED. He reports patient experienced similar episode in November 2016 where his right leg began to turn slightly blue while feeling cold to touch. Patient's son states patient currently has prosthetic left leg beginning at the knee due to same condition. Denies chest pain, SOB. Denies nausea, vomiting. Denies contact with sick individuals, out of state travel. Denies any other symptoms. Allergies: Vancomycin Social history: Lives with . Former smoker. No alcohol. No illicit drugs. Surgical history: Left left stent. Left leg knee amputee. PMD Dr. Brent Roberts Vascular: Dr. 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) Gastrointestinal: Yes: GERD Renal/: Yes: BPH Musculoskeletal: Yes: Osteoarthritis, Other (s/p left AKA) Endocrine: Yes: Diabetes Mellitus - Past Surgical History Past Surgical History: Yes: Amputation (left AKA), Bypass (RLE) - Alcohol/Substance Use Hx Alcohol Use: No History of Substance Use: reports: None - Smoking History Smoking history: Former smoker Have you smoked in the past 12 months: No Aproximately how many cigarettes per day: 0 If you are a former smoker, when did you quit?: 1983 - Social History Usual Living Arrangement: With Child ADL: Family Assistance History of Recent Travel: No Home Medications - Allergies Allergies/Adverse Reactions: Allergies Allergy/AdvReac Type Severity Reaction Status Date / Time vancomycin Allergy Severe Verified 08/03/17 13:42 - Home Medications Home Medications: Ambulatory Orders Losartan Potassium [Cozaar -] 50 mg PO HS 01/06/16 Metformin HCl 500 mg PO DAILY 01/06/16 Erlotinib HCl [Tarceva] 50 mg PO DAILY 05/22/17 Ezetimibe 10 mg PO DAILY 05/22/17 Metoprolol Succinate [Toprol Xl] 100 mg PO DAILY 05/22/17 Warfarin Na [Coumadin -] 1 mg PO ASDIR 05/22/17 Metoclopramide HCl [Reglan -] 5 mg PO HS tablet 05/26/17 Sitagliptin Phosphate [Januvia -] 100 mg PO DAILY@0700 #30 tablet 05/26/17 Aspirin [ASA -] 81 mg PO DAILY 08/03/17 Warfarin Sodium [Coumadin] 2 mg PO ASDIR 08/03/17 Family Disease History - Family Disease History Family Disease History: Heart Disease: Sister ([place] in her 60s; alive, in her 80s) Review of Systems - Review of Systems Constitutional: reports: Weakness Eyes: reports: No Symptoms HENT: reports: No Symptoms Neck: reports: No Symptoms Cardiovascular: reports: No Symptoms Respiratory: reports: SOB on Exertion Gastrointestinal: reports: No Symptoms Genitourinary: reports: No Symptoms Musculoskeletal: reports: Muscle Pain, Muscle Weakness Neurological: reports: Weakness Endocrine: reports: No Symptoms Hematology/Lymphatic: reports: No Symptoms Psychiatric: reports: Anxiety - Risk Factors Known Risk Factors: Yes: Age, Gender, Hypercholesterolemia, Other (PAD; Lung CA) Vital Signs: Vital Signs Temperature 98.3 F 08/04/17 06:00 Pulse Rate 90 08/04/17 06:00 Respiratory Rate 18 08/04/17 06:00 Blood Pressure 146/83 08/04/17 06:00 O2 Sat by Pulse Oximetry (%) 97 08/04/17 01:19 Constitutional: Yes: Anxious Eyes: Yes: WNL HENT: Yes: WNL Neck: Yes: WNL Respiratory: Yes: Diminished (right side to fci up) Gastrointestinal: Yes: Soft Renal/: No: Anuria Cardiovascular: Yes: Regular Rate and Rhythm Heart Sounds: Yes: S1, S2 Musculoskeletal: Yes: Muscle Weakness Extremities: Yes: Amputation Edema: No Peripheral Pulses WNL: No Peripheral Pulses: 1+ Right Dorsalis Pedis Integumentary: Yes: Other Neurological: Yes: Alert, Oriented, Weakness Psychiatric: Yes: WNL - Other Data Labs, Other Data: CBC, BMP 08/04/17 06:45 08/04/17 06:45 INR, PTT INR 4.53 (0.82-1.09) H* 08/04/17 06:45 Troponin, BNP 08/03/17 13:57 Troponin I < 0.02 Troponin, BNP 08/03/17 13:57 Troponin I < 0.02 Abnormal Lab Results 08/03/17 08/04/17 08/04/17 18:35 06:45 06:45 WBC 11.3 H D MCV 77.6 L MCH 24.2 L MCHC 31.2 L RDW 18.7 H PT with INR 51.20 H INR 4.53 H* Calcium Albumin Ur Specific [place] 1.040 H Urine Blood 1+ H 08/04/17 06:45 WBC MCV MCH MCHC RDW PT with INR INR Calcium 8.4 L Albumin 2.5 L Ur Specific [place] Urine Blood Ejection Fraction %: LVEF > or = 40 % Problem List - Problems (1) Arterial occlusion, lower extremity Assessment/Plan: As discussed with Dr. Robertson, ASA will be continued. F/u with vascular surgeon in the am. ECHO: normal LVEF. EKG sinus tachycardia. Code(s): I70.209 - UNSP ATHSCL [place] ARTERIES OF EXTREMITIES, UNSP EXTREMITY (2) PAD (peripheral artery disease) Code(s): I73.9 - PERIPHERAL VASCULAR DISEASE, UNSPECIFIED (3) Hypercholesteremia Assessment/Plan: lipid profile Code(s): E78.0 - PURE HYPERCHOLESTEROLEMIA * DO NOT USE * (4) Lung cancer Code(s): C34.90 - MALIGNANT NEOPLASM OF UNSP PART OF UNSP BRONCHUS OR LUNG
[2017-08-04] MEDS ORDERED: ERLOTINIB HCL PO SCH (10:00)
[2017-08-04] MEDS ORDERED: ASPIRIN 81 MG CHEWABLE TABLETS PO SCH (10:00)
[2017-08-04] MEDS: ASPIRIN COATED 81 MG TABLET.EC PO SCH ×2 (10:06→18:19)
[2017-08-04] MEDS: EZETIMIBE 10 MG TABLET (FP) PO SCH (10:06)
[2017-08-04] MEDS: METOPROLOL SUCCINATE 100 MG TAB.SR.24H (FP) PO SCH (10:06)
[2017-08-04] MEDS: ACETAMINOPHEN 325 MG TABLET (FP) PO PRN (13:08)
--- NOTE | 2017-08-04 13:08 | EKG ---
Test Reason : Blood Pressure : / mmHG Vent. Rate : 109 BPM Atrial Rate : 109 BPM P-R Int : 162 ms QRS Dur : 064 ms QT Int : 328 ms P-R-T Axes : 059 034 054 degrees QTc Int : 441 ms POOR DATA QUALITY, INTERPRETATION MAY BE ADVERSELY AFFECTED SINUS TACHYCARDIA OTHERWISE NORMAL ECG WHEN COMPARED WITH ECG OF 21-MAY-2017 23:42, NO SIGNIFICANT CHANGE WAS FOUND Confirmed by CATY AC, ZITA ([id number]) on 08/04/2017 1:07:37 PM Referred By: Confirmed By:ZITA BYRNE MD
--- NOTE | 2017-08-04 15:27 | PN ---
Progress Note (short form) - Note Progress Note: Vascular surgery Pt seen and examined. right leg feels better. CTA reviewed -- bypass is occluded. Pt has right fem-pop bypass with PTFE. Cardiology to see pt. Pt will probably need open thrombectomy to salvage bypass. Dr. Davenport will be back ki and will see pt. INR is 4.53. Will need to hold AC, start IV heparin once INR below 2. Alexandro Robertson DO
--- NOTE | 2017-08-04 16:31 | CONSULT ---
Consult Consult Specialty:: Hematology - History of Present Illness History of Present Illness: 82 year old male with a significant past medical history of x/o Lung CA, s/p Right Lobectomy, on Tarceva, Diabetes, HTN , s/p left LE AKA, who presents to the ED with complaints of decreased right leg circulation that began this morning. As per patient's son patient began experiencing decreased right lower leg circulation as well as lower lower leg rash suddenly this morning while at home. Patient's son states patient's leg initially had purple/black coloration but has since begun to appear normal. Patient's son states patient initially experienced 9/10 lower right leg pain this morning but currently feel 7/10 leg pain while here in the ED. He reports patient experienced similar episode in November 2016 where his right leg began to turn slightly blue while feeling cold to touch. Patient's son states patient currently has prosthetic left leg beginning at the knee due to same condition. 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) Gastrointestinal: Yes: GERD Renal/: Yes: BPH Musculoskeletal: Yes: Osteoarthritis, Other (s/p left AKA) Endocrine: Yes: Diabetes Mellitus - Past Surgical History Past Surgical History: Yes: Amputation (left AKA), Bypass (RLE) - Alcohol/Substance Use Hx Alcohol Use: No History of Substance Use: reports: None - Smoking History Smoking history: Former smoker Have you smoked in the past 12 months: No Aproximately how many cigarettes per day: 0 If you are a former smoker, when did you quit?: 1983 - Social History Usual Living Arrangement: With Child ADL: Family Assistance History of Recent Travel: No Home Medications - Allergies Allergies/Adverse Reactions: Allergies Allergy/AdvReac Type Severity Reaction Status Date / Time vancomycin Allergy Severe Verified 08/03/17 13:42 - Home Medications Home Medications: Ambulatory Orders Losartan Potassium [Cozaar -] 50 mg PO HS 01/06/16 Metformin HCl 500 mg PO DAILY 01/06/16 Erlotinib HCl [Tarceva] 50 mg PO DAILY 05/22/17 Ezetimibe 10 mg PO DAILY 05/22/17 Metoprolol Succinate [Toprol Xl] 100 mg PO DAILY 05/22/17 Warfarin Na [Coumadin -] 1 mg PO ASDIR 05/22/17 Metoclopramide HCl [Reglan -] 5 mg PO HS tablet 05/26/17 Sitagliptin Phosphate [Januvia -] 100 mg PO DAILY@0700 #30 tablet 05/26/17 Aspirin [ASA -] 81 mg PO DAILY 08/03/17 Warfarin Sodium [Coumadin] 2 mg PO ASDIR 08/03/17 Family Disease History - Family Disease History Family Disease History: Heart Disease: Sister ([place] in her 60s; alive, in her 80s) Physical Exam Vital Signs: Vital Signs Temperature 97.8 F 08/04/17 15:24 Pulse Rate 93 H 08/04/17 15:24 Respiratory Rate 18 08/04/17 09:00 Blood Pressure 127/55 08/04/17 15:24 O2 Sat by Pulse Oximetry (%) 97 08/04/17 09:00 Constitutional: Yes: Well Nourished, No Distress, Calm Eyes: Yes: Conjunctiva Clear HENT: Yes: Atraumatic Neck: Yes: Supple Cardiovascular: Yes: Regular Rate and Rhythm Respiratory: Yes: Regular Gastrointestinal: Yes: Normal Bowel Sounds, Soft, Abdomen, Obese Extremities: Yes: Amputation, Other (cool RLE amputated LLE) Labs: CBC, BMP 08/04/17 06:45 08/04/17 06:45 Imaging - Results Cat Scan: Report Reviewed Assessment/Plan Thrombosed Bypass: was on warfarin supratherapeutic INR will await INR to drift to 2, and then start heparin drip likely hypercoagulable due to progressive lung cancer emt intermediate choice of AC to be decided. await final vascular plan d/w vascular Advanced Lung Adeno: will c/w tarceva pAfib: was on coumadin will follow.
[2017-08-04] MEDS: ERLOTINIB HCL PO SCH (22:08)
[2017-08-05] MEDS: ACETAMINOPHEN 325 MG TABLET (FP) PO PRN ×2 (00:02→09:19)
[2017-08-05] MEDS: DEXTROSE 5%-NORMAL SALINE 1,000 ML IV SCH ×2 (06:32→21:51)
[2017-08-05] MEDS: INSULIN SLIDING SCALE (NOVOLOG) 1 VIAL SQ SCH ×4 (06:33→21:54)
[2017-08-05 08:50] LABS: HEMATOCRIT 42.6 % (35.4-49); HEMOGLOBIN 13.2 GM/dL (11.7-16.9); MCH 24.1 pg (25.7-33.7); MEAN CELL VOLUME 77.9 fl (80-96); MEAN PLT VOLUME 9.2 fl (7.5-11.1); PLATELET COUNT 404 K/MM3 (134-434); RBC 5.46 M/mm3 (4.00-5.60); RDW 18.6 % (11.9-15.9); WHITE BLOOD COUNT 11.7 K/mm3 (4.0-10.0)
[2017-08-05 08:58] LABS: INR 2.81 (0.82-1.09); PROTHROMBIN TIME (PATIENT) 31.7 SEC (9.98-11.88)
--- NOTE | 2017-08-05 09:19 | EKG ---
Test Reason : Blood Pressure : / mmHG Vent. Rate : 085 BPM Atrial Rate : 085 BPM P-R Int : 188 ms QRS Dur : 070 ms QT Int : 376 ms P-R-T Axes : 042 005 035 degrees QTc Int : 447 ms NORMAL SINUS RHYTHM NORMAL ECG WHEN COMPARED WITH ECG OF 03-AUG-2017 13:51, NO SIGNIFICANT CHANGE WAS FOUND Confirmed by SARAH GRAYSON MD ([id number]) on 08/05/2017 9:19:09 AM Referred By: Confirmed By:SARAH GRAYSON MD
[2017-08-05] MEDS: METOPROLOL SUCCINATE 100 MG TAB.SR.24H (FP) PO SCH (09:20)
[2017-08-05] MEDS: EZETIMIBE 10 MG TABLET (FP) PO SCH (09:21)
[2017-08-05] MEDS: ASPIRIN COATED 81 MG TABLET.EC PO SCH (09:21)
[2017-08-05] MEDS: ERLOTINIB HCL PO SCH (09:21)
[2017-08-05 09:37] LABS: CALCIUM 8.2 mg/dL (8.5-10.1); CHLORIDE 109 mmol/L (98-107); POTASSIUM 4.4 mmol/L (3.5-5.1); SODIUM 140 mmol/L (136-145)
[2017-08-05 09:44] LABS: ALBUMIN 2.7 g/dl (3.4-5.0); ALK PHOS 74 U/L (45-117); ANION GAP 7 (8-16); BILIRUBIN,TOTAL 0.7 mg/dL (0.2-1.0); BLOOD UREA NITROGEN 14 mg/dL (7-18); CO2 24 mmol/L (21-32); CREATININE 0.8 mg/dL (0.7-1.3); GLUCOSE,RANDOM 105 mg/dL (74-106); SGOT/AST 20 U/L (15-37); SGPT/ALT 19 U/L (12-78); TOT PROT 6.8 g/dl (6.4-8.2)
--- NOTE | 2017-08-05 13:14 | PN ---
Progress Note (short form) - Note Progress Note: Patient seen and examined No overnight events. says pain comes and goes. O/E: Constitutional: Yes: Well Nourished, No Distress, Calm Eyes: Yes: Conjunctiva Clear HENT: Yes: Atraumatic Neck: Yes: Supple Cardiovascular: Yes: Regular Rate and Rhythm Respiratory: Yes: Regular Gastrointestinal: Yes: Normal Bowel Sounds, Soft, Abdomen, Obese Extremities: Yes: Amputation, Other (cool RLE amputated LLE) Last Vital Signs Temp Pulse Resp BP Pulse Ox 98.2 F 80 18 148/70 97 08/05/17 06:00 08/05/17 09:00 08/05/17 09:00 08/05/17 09:00 08/04/17 21:00 CBC, BMP 08/05/17 08:11 08/05/17 08:11 Current Medications Generic Name Dose Route Start Last Admin Trade Name Freq PRN Reason Stop Dose Admin Acetaminophen 650 mg 08/04/17 06:23 08/05/17 09:19 Tylenol - PO 650 mg Q6H PRN Administration PAIN Aspirin 81 mg 08/04/17 10:00 08/05/17 09:21 Ecotrin - PO 81 mg DAILY DENISE Administration Ezetimibe 10 mg 08/04/17 10:00 08/05/17 09:21 Zetia - PO 10 mg DAILY DENISE Administration Dextrose/Sodium Chloride 1,000 mls @ 75 mls/hr 08/04/17 06:30 08/05/17 06:32 D5-Ns - IV 75 mls/hr ASDIR DENISE Administration Insulin Aspart 1 vial 08/04/17 07:00 08/05/17 12:19 Novolog Vial Sliding Scale - SQ Not Given ACHS [facility] Protocol Metoprolol Succinate 100 mg 08/04/17 10:00 08/05/17 09:20 Toprol Xl - PO 100 mg DAILY DENISE Administration Ptt's Own Med ( 50 mg 08/04/17 15:15 08/05/17 09:21 Erlotinib Hcl [ PO 50 mg Tarceva] 50 Mg) DAILY DENISE Administration Thrombosed Bypass: INR today 2.8 expected tomorrow <2 will likely need heparin drip from tomorrow pending INR choice of residential AC to be determined, likely will do lovenox injections Advanced Lung Adeno: will c/w tarceva pAfib: was on coumadin will need to change to heparin once INR <2 will follow.
[2017-08-05 17:50] LABS: INR 2.37 (0.82-1.09); PROTHROMBIN TIME (PATIENT) 26.8 SEC (9.98-11.88)
--- NOTE | 2017-08-05 18:01 | PN ---
Progress Note, Physician Chief Complaint: Pt A&Ox3; atul is visiting. Pt's right leg pain is still present, though slightly diminished. History of Present Illness: Patient is an 82 year old male with a significant past medical history of x/o Lung CA, s/p Right Lobectomy, on Tarceva, Diabetes, HTN , s/p left LE AKA, who presents to the ED with complaints of decreased right leg circulation that began this morning. As per patient's son patient began experiencing decreased right lower leg circulation as well as lower lower leg rash suddenly this morning while at home. Patient's son states patient's leg initially had purple/ black coloration but has since begun to appear normal. Patient's son states patient initially experienced 9/10 lower right leg pain this morning but currently feel 7/10 leg pain while here in the ED. He reports patient experienced similar episode in November 2016 where his right leg began to turn slightly blue while feeling cold to touch. Patient's son states patient currently has prosthetic left leg beginning at the knee due to same condition. Denies chest pain, SOB. Denies nausea, vomiting. Denies contact with sick individuals, out of state travel. Denies any other symptoms. Allergies: Vancomycin Social history: Lives with . Former smoker. No alcohol. No illicit drugs. Surgical history: Left left stent. Left leg knee amputee. PMD Dr. Brent Roberts Vascular: Dr. Davenport - Current Medication List Current Medications: Active Medications Acetaminophen (Tylenol -) 650 mg PO Q6H PRN PRN Reason: PAIN Last Admin: 08/05/17 09:19 Dose: 650 mg Aspirin (Ecotrin -) 81 mg PO DAILY [facility] Last Admin: 08/05/17 09:21 Dose: 81 mg Ezetimibe (Zetia -) 10 mg PO DAILY [facility] Last Admin: 08/05/17 09:21 Dose: 10 mg Dextrose/Sodium Chloride (D5-Ns -) 1,000 mls @ 75 mls/hr IV ASDIR [facility] Last Admin: 08/05/17 06:32 Dose: 75 mls/hr Insulin Aspart (Novolog Vial Sliding Scale -) 1 vial SQ ACHS [facility] PRN Reason: Protocol Last Admin: 08/05/17 17:46 Dose: Not Given Metoprolol Succinate (Toprol Xl -) 100 mg PO DAILY [facility] Last Admin: 08/05/17 09:20 Dose: 100 mg Ptt's Own Med ( Erlotinib Hcl [ Tarceva] 50 Mg) 50 mg PO DAILY DENISE Last Admin: 08/05/17 09:21 Dose: 50 mg - Objective Vital Signs: Vital Signs Temperature 98.0 F 08/05/17 13:56 Pulse Rate 88 08/05/17 13:56 Respiratory Rate 18 08/05/17 09:00 Blood Pressure 146/77 08/05/17 13:56 O2 Sat by Pulse Oximetry (%) 97 08/05/17 09:00 Constitutional: Yes: Anxious Eyes: Yes: WNL HENT: Yes: WNL Neck: Yes: WNL Cardiovascular: Yes: Regular Rate and Rhythm, S1, S2 Respiratory: Yes: Diminished (absent breath sounds right base) Gastrointestinal: Yes: Soft ...Rectal Exam: Yes: Deferred Genitourinary: No: Anuria Breast(s): Yes: WNL Musculoskeletal: Yes: Muscle Weakness Extremities: Yes: Amputation (left AKA), Cool Edema: No Peripheral Pulses WNL: No Peripheral Pulses: Right Dorsalis Pedis: 1+ Wound/Incision: Yes: Other (left AKA) Neurological: Yes: Alert, Oriented, Weakness Psychiatric: Yes: Alert, Oriented Labs: CBC, BMP 08/05/17 08:11 08/05/17 08:11 INR, PTT INR 2.37 (0.82-1.09) H 08/05/17 17:15 Abnormal Lab Results 08/04/17 08/05/17 08/05/17 06:45 08:11 17:15 WBC MCV MCH MCHC RDW Lymphocytes % Monocytes % Eosinophils % PT with INR 26.80 H INR 2.37 H PTT (Actin FS) Chloride 109 H Anion Gap 7 L Random Glucose Calcium 8.4 L 8.2 L Albumin 2.5 L 2.7 L 08/05/17 08/06/17 08/06/17 17:15 07:15 07:15 WBC 12.9 H MCV 77.5 L MCH 24.1 L MCHC 31.1 L RDW 18.6 H Lymphocytes % 6.6 L D Monocytes % 11.0 H Eosinophils % 6.8 H PT with INR 25.70 H INR 2.27 H PTT (Actin FS) 51.5 H D Chloride Anion Gap Random Glucose Calcium Albumin 08/06/17 07:15 WBC MCV MCH MCHC RDW Lymphocytes % Monocytes % Eosinophils % PT with INR INR PTT (Actin FS) Chloride 108 H Anion Gap Random Glucose 119 H Calcium 7.8 L Albumin 2.6 L - ....Imaging Chest X-ray: Image Reviewed (right elevated hemidiaphragm;) EKG: Image Reviewed (normal sinus rhythm) Problem List - Problems (1) Arterial occlusion, lower extremity Assessment/Plan: Continue ASA. Aortic study noted; occluded right femoral stents. F/u with vascular surgeon. ECHO: normal LVEF. EKG: sinus tachycardia initially; now normal HR. From a cardiac perspective, there are no absolute contraindications for Mr. Palmer to undergo lower extremity surgery should it be deemed necessary. Code(s): I70.209 - UNSP ATHSCL [place] ARTERIES OF EXTREMITIES, UNSP EXTREMITY (2) PAD (peripheral artery disease) Code(s): I73.9 - PERIPHERAL VASCULAR DISEASE, UNSPECIFIED (3) Hypercholesteremia Assessment/Plan: lipid profile pending. F/u TSH (normal in 2015). Code(s): E78.0 - PURE HYPERCHOLESTEROLEMIA * DO NOT USE * (4) Lung cancer Code(s): C34.90 - MALIGNANT NEOPLASM OF UNSP PART OF UNSP BRONCHUS OR LUNG
[2017-08-05] MEDS ORDERED: HEPARIN NA (PORCINE) 5,000 UNITS/ML 1ML VIAL IVPUSH PRN ×2 (19:07)
--- NOTE | 2017-08-05 19:16 | PN ---
Progress Note, Physician History of Present Illness: Pt's right leg/foot pain is slightly improved, controlled by Tylenol. Pt w/o SOB, CP, palp, abd pain. - Current Medication List Current Medications: Active Medications Acetaminophen (Tylenol -) 650 mg PO Q6H PRN PRN Reason: PAIN Last Admin: 08/05/17 09:19 Dose: 650 mg Aspirin (Ecotrin -) 81 mg PO DAILY [facility] Last Admin: 08/05/17 09:21 Dose: 81 mg Ezetimibe (Zetia -) 10 mg PO DAILY [facility] Last Admin: 08/05/17 09:21 Dose: 10 mg Heparin Sodium (Porcine) (Heparin -) 1,000 unit IVPUSH PRN PRN PRN Reason: Heparin Heparin Sodium (Porcine) (Heparin -) 5,000 unit IVPUSH PRN PRN PRN Reason: Heparin HEPARIN SOD,PORK IN 0.45% NACL (Heparin-1/2ns 25,000 Units/500) 25,000 units in 500 mls @ 20 mls/hr IVPB TITR DENISE; 1,000 UNITS/HR PRN Reason: Protocol Dextrose/Sodium Chloride (D5-Ns -) 1,000 mls @ 50 mls/hr IV ASDIR DENISE Insulin Aspart (Novolog Vial Sliding Scale -) 1 vial SQ ACHS DENISE PRN Reason: Protocol Last Admin: 08/05/17 17:46 Dose: Not Given Metoprolol Succinate (Toprol Xl -) 100 mg PO DAILY [facility] Last Admin: 08/05/17 09:20 Dose: 100 mg Ptt's Own Med ( Erlotinib Hcl [ Tarceva] 50 Mg) 50 mg PO DAILY [facility] Last Admin: 08/05/17 09:21 Dose: 50 mg - Objective Vital Signs: Vital Signs Temperature 98.0 F 08/05/17 18:05 Pulse Rate 88 08/05/17 13:56 Respiratory Rate 20 08/05/17 18:05 Blood Pressure 146/77 08/05/17 13:56 O2 Sat by Pulse Oximetry (%) 97 08/05/17 09:00 Constitutional: Yes: No Distress, Calm Cardiovascular: Yes: Regular Rate and Rhythm, S1, S2 Respiratory: Yes: Regular, CTA Bilaterally. No: Rales Gastrointestinal: Yes: Normal Bowel Sounds, Soft. No: Tenderness Extremities: Yes: Other (Right leg: cold to touch (foot more than above the knee ), minimal discoloration of the toes (same as yesterday)) Edema: No Neurological: Yes: Alert, Oriented Labs: CBC, BMP 08/05/17 08:11 08/05/17 08:11 INR, PTT INR 2.37 (0.82-1.09) H 08/05/17 17:15 Problem List - Problems (1) Arterial occlusion, lower extremity Code(s): I70.209 - UNSP ATHSCL [place] ARTERIES OF EXTREMITIES, UNSP EXTREMITY (2) Supratherapeutic INR Code(s): R79.1 - ABNORMAL COAGULATION PROFILE (3) Lung cancer Code(s): C34.90 - MALIGNANT NEOPLASM OF UNSP PART OF UNSP BRONCHUS OR LUNG (4) Diabetes mellitus Code(s): E11.9 - TYPE 2 DIABETES MELLITUS WITHOUT COMPLICATIONS Qualifiers: Diabetes mellitus type: type 2 Diabetes mellitus complication detail: with other circulatory complications (5) S/P lobectomy of lung Code(s): Z90.2 - ACQUIRED ABSENCE OF LUNG [PART OF] (6) PVD (peripheral vascular disease) Code(s): I73.9 - PERIPHERAL VASCULAR DISEASE, UNSPECIFIED (7) History of left above knee amputation Code(s): Z89.612 - ACQUIRED ABSENCE OF LEFT LEG ABOVE KNEE (8) Paroxysmal atrial fibrillation Code(s): I48.0 - PAROXYSMAL ATRIAL FIBRILLATION Assessment/Plan Vasc Sx consult appreciated Cardio consult for Preop clearance appreciated Heme/ Onco consult appreciated DM meds on hold; BGM and Regular Insulin coverage. AM labs. To start Heparin drip (no bolus) at midnight). Case was d/w pt's nurse. Case was d/w pt and family- at bedside
[2017-08-06] MEDS: HEPARIN SOD,PORK IN 0.45% NACL 25,000 UNITS/500 ML INFUS.BAG IVPB SCH (00:07)
[2017-08-06] MEDS: INSULIN SLIDING SCALE (NOVOLOG) 1 VIAL SQ SCH ×4 (06:25→21:23)
[2017-08-06] MEDS: ACETAMINOPHEN 325 MG TABLET (FP) PO PRN ×2 (06:32→12:02)
[2017-08-06 07:46] LABS: BASO % 0.7 % (0-2.0); EOS % 6.8 % (0-4.5); HEMATOCRIT 42.5 % (35.4-49); HEMOGLOBIN 13.2 GM/dL (11.7-16.9); LYMPH % 6.6 % (8-40); MCH 24.1 pg (25.7-33.7); MCHC 31.1 g/dl (32.0-35.9); MEAN CELL VOLUME 77.5 fl (80-96); MEAN PLT VOLUME 9.2 fl (7.5-11.1); NEUT % 74.9 % (42.8-82.8); PLATELET COUNT 398 K/MM3 (134-434); RBC 5.48 M/mm3 (4.00-5.60); RDW 18.6 % (11.9-15.9); WHITE BLOOD COUNT 12.9 K/mm3 (4.0-10.0)
[2017-08-06 07:54] LABS: INR 2.27 (0.82-1.09); PROTHROMBIN TIME (PATIENT) 25.7 SEC (9.98-11.88)
[2017-08-06 08:20] LABS: CHOLESTEROL 152 mg/dL (50-200); HDL CHOLESTEROL 34 mg/dl (29-89); LDL CHOLESTEROL (ONLY SJRH) 99 mg/dL (5-100); TRIGLYCERIDES 88 mg/dL (35-160)
[2017-08-06 08:47] LABS: ALBUMIN 2.6 g/dl (3.4-5.0); ALK PHOS 72 U/L (45-117); ANION GAP 8 (8-16); BILIRUBIN,TOTAL 0.6 mg/dL (0.2-1.0); BLOOD UREA NITROGEN 11 mg/dL (7-18); CALCIUM 7.8 mg/dL (8.5-10.1); CHLORIDE 108 mmol/L (98-107); CO2 22 mmol/L (21-32); CREATININE 0.7 mg/dL (0.7-1.3); GLUCOSE,RANDOM 119 mg/dL (74-106); POTASSIUM 4.1 mmol/L (3.5-5.1); SGOT/AST 23 U/L (15-37); SGPT/ALT 21 U/L (12-78); SODIUM 138 mmol/L (136-145); TOT PROT 6.8 g/dl (6.4-8.2)
[2017-08-06 11:29] LABS: CHOLESTEROL 158 mg/dL (50-200); HDL CHOLESTEROL 38 mg/dL (40-60); LDL CHOLESTEROL (ONLY SJRH) 105 mg/dL (5-100); TRIGLYCERIDES 89 mg/dL (35-160)
[2017-08-06] MEDS: METOPROLOL SUCCINATE 100 MG TAB.SR.24H (FP) PO SCH (11:57)
[2017-08-06] MEDS: EZETIMIBE 10 MG TABLET (FP) PO SCH (11:57)
[2017-08-06] MEDS: ASPIRIN COATED 81 MG TABLET.EC PO SCH (11:57)
[2017-08-06] MEDS: ERLOTINIB HCL PO SCH (11:58)
--- NOTE | 2017-08-06 12:30 | PN ---
Progress Note, Physician History of Present Illness: seen and examined today in nad. no new complaints. - Current Medication List Current Medications: Active Medications Acetaminophen (Tylenol -) 650 mg PO Q6H PRN PRN Reason: PAIN Last Admin: 08/06/17 12:02 Dose: 650 mg Aspirin (Ecotrin -) 81 mg PO DAILY [facility] Last Admin: 08/06/17 11:57 Dose: 81 mg Ezetimibe (Zetia -) 10 mg PO DAILY [facility] Last Admin: 08/06/17 11:57 Dose: 10 mg Heparin Sodium (Porcine) (Heparin -) 1,000 unit IVPUSH PRN PRN PRN Reason: Heparin Heparin Sodium (Porcine) (Heparin -) 5,000 unit IVPUSH PRN PRN PRN Reason: Heparin HEPARIN SOD,PORK IN 0.45% NACL (Heparin-1/2ns 25,000 Units/500) 25,000 units in 500 mls @ 20 mls/hr IVPB TITR DENISE; 1,000 UNITS/HR PRN Reason: Protocol Last Admin: 08/06/17 00:07 Dose: 1,000 units/hr, 20 mls/hr Dextrose/Sodium Chloride (D5-Ns -) 1,000 mls @ 50 mls/hr IV ASDIR [facility] Last Admin: 08/05/17 21:51 Dose: 50 mls/hr Insulin Aspart (Novolog Vial Sliding Scale -) 1 vial SQ ACHS DENISE PRN Reason: Protocol Last Admin: 08/06/17 12:09 Dose: Not Given Metoprolol Succinate (Toprol Xl -) 100 mg PO DAILY [facility] Last Admin: 08/06/17 11:57 Dose: 100 mg Ptt[employer] Own Med ( Erlotinib Hcl [ Tarceva] 50 Mg) 50 mg PO DAILY [facility] Last Admin: 08/06/17 11:58 Dose: 50 mg - Objective Vital Signs: Vital Signs Temperature 97.4 F L 08/06/17 06:00 Pulse Rate 103 H 08/06/17 06:00 Respiratory Rate 20 08/06/17 06:00 Blood Pressure 160/83 08/06/17 06:00 O2 Sat by Pulse Oximetry (%) 98 08/05/17 21:00 Constitutional: Yes: No Distress, Calm Eyes: Yes: Conjunctiva Clear, EOM Intact, PERRL HENT: Yes: Atraumatic, Normocephalic Neck: Yes: Supple, Trachea Midline Cardiovascular: Yes: Regular Rate and Rhythm, S1, S2. No: Bradycardia, Tachycardia, Pulse Irregular, Bruit, JVD, Gallop, Murmur, Rub, S3, S4, Varicosities Respiratory: Yes: Regular, CTA Bilaterally. No: Rales, Rhonchi, Wheezes Gastrointestinal: Yes: Normal Bowel Sounds, Soft. No: Distention, Tenderness Edema: No Peripheral Pulses WNL: No Neurological: Yes: Alert, Oriented Psychiatric: Yes: Alert, Oriented Labs: CBC, BMP 08/06/17 07:15 08/06/17 07:15 INR, PTT INR 2.27 (0.82-1.09) H 08/06/17 07:15 - ....Imaging Chest X-ray: Report Reviewed, Image Reviewed EKG: Report Reviewed, Image Reviewed Other: Report Reviewed, Image Reviewed Assessment/Plan 82 year old man with a history of x/o Lung CA, s/p Right Lobectomy, on Tarceva, Diabetes, HTN , s/p left LE AKA, adm with RLE ischemia. Arterial occlusion, lower extremity -Aortic study noted; occluded right femoral stents. -on heparin gtt -vascular evaluating for possible open surgery -Cont ASA if acceptable from a surgical standpoint -ECHO: normal LVEF. -EKG: sinus tachycardia initially; now normal HR. -As per Dr. Watkins note from yesterday-From a cardiac perspective, there are no absolute contraindications for Mr. Palmer to undergo lower extremity surgery should it be deemed necessary. HTN-variable but adequate for now -cont Toprol for now Hypercholesteremia -on zetia
--- NOTE | 2017-08-06 13:51 | CONSULT ---
Consult - History of Present Illness History of Present Illness: 82 year old man well known to me with severe PAD complicated by metastatic lung cancer with hypercoagulation syndrome. He required left BKA after left leg bypass failed and subsequently required right leg bypass in MAY 2014. He has been maintained on Coumadin with therapeutic INR. He developed pain and coldness in right foot and was admitted. CTA shows occluded bypass with no distal vessels present. 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) Gastrointestinal: Yes: GERD Renal/: Yes: BPH Musculoskeletal: Yes: Osteoarthritis, Other (s/p left AKA) Endocrine: Yes: Diabetes Mellitus - Past Surgical History Past Surgical History: Yes: Amputation (left AKA), Bypass (RLE) - Alcohol/Substance Use Hx Alcohol Use: No History of Substance Use: reports: None - Smoking History Smoking history: Former smoker Have you smoked in the past 12 months: No Aproximately how many cigarettes per day: 0 If you are a former smoker, when did you quit?: 1983 - Social History Usual Living Arrangement: With Child ADL: Family Assistance History of Recent Travel: No Home Medications - Allergies Allergies/Adverse Reactions: Allergies Allergy/AdvReac Type Severity Reaction Status Date / Time vancomycin Allergy Severe Verified 08/03/17 13:42 - Home Medications Home Medications: Ambulatory Orders Losartan Potassium [Cozaar -] 50 mg PO HS 01/06/16 Metformin HCl 500 mg PO DAILY 01/06/16 Erlotinib HCl [Tarceva] 50 mg PO DAILY 05/22/17 Ezetimibe 10 mg PO DAILY 05/22/17 Metoprolol Succinate [Toprol Xl] 100 mg PO DAILY 05/22/17 Warfarin Na [Coumadin -] 1 mg PO ASDIR 05/22/17 Metoclopramide HCl [Reglan -] 5 mg PO HS tablet 05/26/17 Sitagliptin Phosphate [Januvia -] 100 mg PO DAILY@0700 #30 tablet 05/26/17 Aspirin [ASA -] 81 mg PO DAILY 08/03/17 Warfarin Sodium [Coumadin] 2 mg PO ASDIR 08/03/17 Family Disease History - Family Disease History Family Disease History: Heart Disease: Sister (SD in her 60s; alive, in her 80s) Physical Exam Vital Signs: Vital Signs Temperature 97.4 F L 08/06/17 06:00 Pulse Rate 103 H 08/06/17 06:00 Respiratory Rate 20 08/06/17 06:00 Blood Pressure 160/83 08/06/17 06:00 O2 Sat by Pulse Oximetry (%) 98 08/05/17 21:00 Constitutional: Yes: No Distress Extremities: Yes: Cold (Right foot with moderate tenderness. No gangrenous skin changes.) Labs: CBC, BMP 08/06/17 07:15 08/06/17 07:15 Imaging - Results Cat Scan: Image Reviewed Problem List - Problems (1) Arterial graft thrombosis Assessment/Plan: Graft occlusion despite supratherapeutic INR does not maureen well for limb salvage. An attempt at thropmbectomy and angioplasty is not unreasonable but there would be limited hope of success. I will discuss with patient's son and schedule accordingly. Code(s): T82.868A - THROMBOSIS DUE TO VASCULAR PROSTH DEV/GRFT, INIT Qualifiers: Encounter type: initial encounter Qualified Code(s): T82.868A - Thrombosis due to vascular prosthetic devices, implants and grafts, initial encounter
--- NOTE | 2017-08-06 13:52 | PN ---
Progress Note (short form) - Note Progress Note: Patient seen and examined continues to have pain O/E: Constitutional: Yes: Well Nourished, No Distress, Calm Eyes: Yes: Conjunctiva Clear HENT: Yes: Atraumatic Neck: Yes: Supple Cardiovascular: Yes: Regular Rate and Rhythm Respiratory: Yes: Regular Gastrointestinal: Yes: Normal Bowel Sounds, Soft, Abdomen, Obese Extremities: Yes: Amputation, Other (cool RLE amputated LLE) Last Vital Signs Temp Pulse Resp BP Pulse Ox 97.4 F L 103 H 20 160/83 98 08/06/17 06:00 08/06/17 06:00 08/06/17 06:00 08/06/17 06:00 08/05/17 21:00 CBC, BMP 08/06/17 07:15 08/06/17 07:15 Current Medications Generic Name Dose Route Start Last Admin Trade Name Freq PRN Reason Stop Dose Admin Acetaminophen 650 mg 08/04/17 06:23 08/06/17 12:02 Tylenol - PO 650 mg Q6H PRN Administration PAIN Aspirin 81 mg 08/04/17 10:00 08/06/17 11:57 Ecotrin - PO 81 mg DAILY DENISE Administration Ezetimibe 10 mg 08/04/17 10:00 08/06/17 11:57 Zetia - PO 10 mg DAILY DENISE Administration Heparin Sodium (Porcine) 1,000 unit 08/05/17 19:07 Heparin - IVPUSH PRN PRN Heparin Heparin Sodium (Porcine) 5,000 unit 08/05/17 19:07 Heparin - IVPUSH PRN PRN Heparin HEPARIN SOD,PORK IN 0.45% NACL 25,000 units in 500 mls @ 20 mls/hr 08/06/17 00 :01 08/06/17 00:07 Heparin-1/2ns 25,000 Units/500 IVPB 1,000 units/hr TITR DENISE 20 mls/hr Protocol Administration 1,000 UNITS/HR Dextrose/Sodium Chloride 1,000 mls @ 50 mls/hr 08/05/17 19:10 08/05/17 21:51 D5-Ns - IV 50 mls/hr ASDIR DENISE Administration Insulin Aspart 1 vial 08/04/17 07:00 08/06/17 12:09 Novolog Vial Sliding Scale - SQ Not Given ACHS [facility] Protocol Metoprolol Succinate 100 mg 08/04/17 10:00 08/06/17 11:57 Toprol Xl - PO 100 mg DAILY DENISE Administration Ptt's Own Med ( 50 mg 08/04/17 15:15 08/06/17 11:58 Erlotinib Hcl [ PO 50 mg Tarceva] 50 Mg) DAILY DENISE Administration Thrombosed Bypass: now on heparin drip on asa choice of termite control technician AC to be determined, likely will do lovenox injections Advanced Lung Adeno: will c/w tarceva pAfib: on AC will follow.
--- NOTE | 2017-08-06 15:39 | PN ---
Progress Note, Physician History of Present Illness: Pt's right leg/foot pain is slightly improved from admission, controlled by Tylenol. Pt w/o SOB, CP, palp, abd pain. Pt with constipation X 2-3 days. - Current Medication List Current Medications: Active Medications Acetaminophen (Tylenol -) 650 mg PO Q6H PRN PRN Reason: PAIN Last Admin: 08/06/17 12:02 Dose: 650 mg Aspirin (Ecotrin -) 81 mg PO DAILY [facility] Last Admin: 08/06/17 11:57 Dose: 81 mg Ezetimibe (Zetia -) 10 mg PO DAILY [facility] Last Admin: 08/06/17 11:57 Dose: 10 mg Heparin Sodium (Porcine) (Heparin -) 1,000 unit IVPUSH PRN PRN PRN Reason: Heparin Heparin Sodium (Porcine) (Heparin -) 5,000 unit IVPUSH PRN PRN PRN Reason: Heparin HEPARIN SOD,PORK IN 0.45% NACL (Heparin-1/2ns 25,000 Units/500) 25,000 units in 500 mls @ 20 mls/hr IVPB TITR DENISE; 1,000 UNITS/HR PRN Reason: Protocol Last Admin: 08/06/17 00:07 Dose: 1,000 units/hr, 20 mls/hr Dextrose/Sodium Chloride (D5-Ns -) 1,000 mls @ 50 mls/hr IV ASDIR [facility] Last Admin: 08/05/17 21:51 Dose: 50 mls/hr Insulin Aspart (Novolog Vial Sliding Scale -) 1 vial SQ ACHS DENISE PRN Reason: Protocol Last Admin: 08/06/17 12:09 Dose: Not Given Metoprolol Succinate (Toprol Xl -) 100 mg PO DAILY [facility] Last Admin: 08/06/17 11:57 Dose: 100 mg P[facility] Own Med ( Erlotinib Hcl [ Tarceva] 50 Mg) 50 mg PO DAILY [facility] Last Admin: 08/06/17 11:58 Dose: 50 mg - Objective Vital Signs: Vital Signs Temperature 98.1 F 08/06/17 14:05 Pulse Rate 85 08/06/17 14:05 Respiratory Rate 18 08/06/17 14:05 Blood Pressure 133/63 08/06/17 14:05 O2 Sat by Pulse Oximetry (%) 98 08/05/17 21:00 Constitutional: Yes: No Distress, Calm Cardiovascular: Yes: Regular Rate and Rhythm, S1, S2 Respiratory: Yes: Regular. No: Other (coarse BS bilat.) Gastrointestinal: Yes: Normal Bowel Sounds, Soft. No: Tenderness Labs: CBC, BMP 08/06/17 07:15 08/06/17 07:15 INR, PTT INR 2.27 (0.82-1.09) H 08/06/17 07:15 Problem List - Problems (1) Arterial occlusion, lower extremity Code(s): I70.209 - UNSP ATHSCL [place] ARTERIES OF EXTREMITIES, UNSP EXTREMITY (2) Supratherapeutic INR Code(s): R79.1 - ABNORMAL COAGULATION PROFILE (3) Lung cancer Code(s): C34.90 - MALIGNANT NEOPLASM OF UNSP PART OF UNSP BRONCHUS OR LUNG (4) Diabetes mellitus Code(s): E11.9 - TYPE 2 DIABETES MELLITUS WITHOUT COMPLICATIONS Qualifiers: Diabetes mellitus type: type 2 Diabetes mellitus complication detail: with other circulatory complications (5) S/P lobectomy of lung Code(s): Z90.2 - ACQUIRED ABSENCE OF LUNG [PART OF] (6) PVD (peripheral vascular disease) Code(s): I73.9 - PERIPHERAL VASCULAR DISEASE, UNSPECIFIED (7) History of left above knee amputation Code(s): Z89.612 - ACQUIRED ABSENCE OF LEFT LEG ABOVE KNEE (8) Paroxysmal atrial fibrillation Code(s): I48.0 - PAROXYSMAL ATRIAL FIBRILLATION Assessment/Plan Vasc Sx consult appreciated; Pt was justice today by Dr. Parmar, possible for OR tomorrow. Cardio consult for Preop clearance appreciated Heme/ Onco consult appreciated DM meds on hold; BGM and Regular Insulin coverage. AM labs. Heparin drip. Case was d/w pt's nurse. Case was d/w pt and family- at bedside
[2017-08-06] MEDS: DEXTROSE 5%-NORMAL SALINE 1,000 ML IV SCH ×2 (17:51→18:12)
[2017-08-07] MEDS: HEPARIN SOD,PORK IN 0.45% NACL 25,000 UNITS/500 ML INFUS.BAG IVPB SCH ×2 (02:01→13:30)
[2017-08-07] MEDS: INSULIN SLIDING SCALE (NOVOLOG) 1 VIAL SQ SCH ×4 (06:20→21:58)
[2017-08-07] MEDS: ACETAMINOPHEN 325 MG TABLET (FP) PO PRN ×2 (06:24→13:36)
[2017-08-07 07:52] LABS: HEMATOCRIT 41.3 % (35.4-49); HEMOGLOBIN 12.9 GM/dL (11.7-16.9); MCH 24.3 pg (25.7-33.7); MCHC 31.2 g/dl (32.0-35.9); MEAN CELL VOLUME 77.8 fl (80-96); PLATELET COUNT 374 K/MM3 (134-434); RBC 5.31 M/mm3 (4.00-5.60); WHITE BLOOD COUNT 12.6 K/mm3 (4.0-10.0)
[2017-08-07 07:59] LABS: INR 1.7 (0.82-1.09); PROTHROMBIN TIME (PATIENT) 19.2 SEC (9.98-11.88)
[2017-08-07 08:11] LABS: ALBUMIN 2.5 g/dl (3.4-5.0); ALK PHOS 70 U/L (45-117); ANION GAP 9 (8-16); BILIRUBIN,TOTAL 0.7 mg/dL (0.2-1.0); BLOOD UREA NITROGEN 12 mg/dL (7-18); CALCIUM 8.1 mg/dL (8.5-10.1); CHLORIDE 107 mmol/L (98-107); CO2 23 mmol/L (21-32); CREATININE 0.7 mg/dL (0.7-1.3); GLUCOSE,RANDOM 133 mg/dL (74-106); POTASSIUM 3.9 mmol/L (3.5-5.1); SGOT/AST 25 U/L (15-37); SGPT/ALT 24 U/L (12-78); SODIUM 139 mmol/L (136-145); TOT PROT 6.7 g/dl (6.4-8.2)
[2017-08-07] MEDS: METOPROLOL SUCCINATE 100 MG TAB.SR.24H (FP) PO SCH (09:12)
[2017-08-07] MEDS ORDERED: HEPARIN NA (PORCINE) 5,000 UNITS/ML 1ML VIAL ONE ×3 (09:50→11:20)
[2017-08-07] MEDS ORDERED: LIDOCAINE HCL 1%, 10 MG/ML (20ML VIAL) ONE (09:51)
[2017-08-07] MEDS ORDERED: PROPOFOL 20 ML ONE ×2 (09:57→11:10)
[2017-08-07] MEDS ORDERED: MIDAZOLAM HCL 2 MG/2 ML SINGLE DOSE VIAL ONE (09:57)
[2017-08-07] MEDS ORDERED: LIDOCAINE HCL 1%, 10 MG/ML (20ML VIAL) INF ONE (11:41)
--- NOTE | 2017-08-07 11:57 | OP ---
Operative Note - Note: Operative Date: 08/07/17 Pre-Operative Diagnosis: Thrombosed fem-pop graft right leg Operation: Open thrombectomy fem-pop bypass with angiogram Findings: Thrombosed bypass graft. Proximal and distal anastomoses patent after thrombectomy Post-Operative Diagnosis: Same as Pre-op Surgeon: Suhail Davenport Anesthesiologist/BLOW TORCH BURNER: Jordin Montoya Anesthesia: Fractional Estimated Blood Loss (mls): 50
[2017-08-07] MEDS ORDERED: POVIDONE-IODINE OINTMENT 10% - 28.4 GM TUBE TP ONE (11:58)
[2017-08-07] MEDS ORDERED: ONDANSETRON 4 MG/2 ML VIAL IVPUSH PRN (11:59)
[2017-08-07] MEDS ORDERED: ACETAMINOPHEN 325 MG TABLET (FP) PO PRN (12:15)
[2017-08-07] MEDS ORDERED: HEPARIN NA (PORCINE) 5,000 UNITS/ML 1ML VIAL IVPUSH PRN ×4 (12:15)
--- NOTE | 2017-08-07 12:33 | OP ---
DATE OF OPERATION: 08/07/2017 SURGEON: Suhail Davenport MD PROCEDURE: Open thrombectomy of right leg femoropopliteal bypass with angiogram. PREOPERATIVE: Thrombosed femoropopliteal bypass graft. POSTOPERATIVE: Thrombosed femoropopliteal bypass graft. ANESTHESIA: Fractional. ANESTHESIOLOGIST: Jordin Montoya MD OPERATIVE FINDINGS: The right leg bypass was thrombosed. Following thrombectomy, angiogram revealed patent proximal and distal anastomoses with runoff in the lower leg to a peroneal artery and collaterals in the foot to the dorsalis pedis and plantar vessels. OPERATIVE PROCEDURE: Following routine patient identification with site and side verification, intravenous sedation was established. The right leg was prepped with ChloraPrep. Lidocaine 1% was infiltrated in the medial thigh over the graft, which had been localized preoperatively with duplex. A longitudinal incision was made and was carried down to subcutaneous tissues with cautery. The muscle fascia was incised and the muscle fibers to reveal the graft. The graft was mobilized with sharp dissection and encircled proximally and distally with Vesseloops. Several of the plastic rings around the graft were removed. The patient was then systemically heparinized. A transverse incision was made in the graft and a No. 4 Shae catheter passed proximally to remove thrombus from within the graft lumen. At this point, it was not possible to pass the Shae through the proximal anastomosis. Thrombectomy of the distal graft was then performed with removal of thrombus. A 9-Irish sheath was placed into the graft and secured with the Vesseloop. An angled wire and Berenstein catheter were advanced distally to the area of the anastomosis and an angiogram done, which revealed some flow through the anastomosis. Additional thrombectomy with No. 3 and then No. 2 Shae catheters was performed and repeat imaging revealed a patent distal anastomosis with runoff to the peroneal artery. The graft was filled with heparin saline solution and occluded with a vascular clamp. Attention was then returned to the proximal graft. The sheath was placed and the wire and Berenstein catheter were then passed proximally through the proximal anastomosis. The Berenstein was advanced into the femoral artery and angiogram was obtained. A No. 2 Shae catheter was then passed through the Berenstein catheter and inflated and then the catheter and balloon were withdrawn to remove the thrombus from the anastomotic area. The sheath was removed and then the No. 4 Shae catheter was used to complete the thrombectomy with return of arterial inflow. The graft was filled with heparin solution, occluded with a vascular clamp. The graft incision was then closed with a running suture of 6-0 Prolene. The clamps were released and Surgicel applied to the suture line until dry. The graft was then cannulated with a micropuncture needle and a 5-Irish catheter placed over the wire. Angiography of the distal anastomosis and runoff was then performed with dilute contrast, showing in-line flow into the peroneal artery and collateral flow in the foot. The catheter was removed and the puncture site closed with a mattress suture of 6-0 Prolene. When the wound was dry, it was closed with interrupted suture of 3-0 Vicryl and skin helio. Sterile dressing was applied. The patient was taken to the recovery room in stable condition. Cyndee [id number]
[2017-08-07] MEDS: DEXTROSE 5%-NORMAL SALINE 1,000 ML IV SCH ×2 (12:40→13:31)
[2017-08-07] MEDS: EZETIMIBE 10 MG TABLET (FP) PO SCH (13:27)
[2017-08-07] MEDS: ERLOTINIB HCL PO SCH (13:27)
[2017-08-07] MEDS: ASPIRIN COATED 81 MG TABLET.EC PO SCH (13:28)
[2017-08-07] MEDS: oxyCODONE HCL 5 MG TABLET PO PRN ×2 (13:36→20:39)
--- NOTE | 2017-08-07 13:59 | PN ---
Progress Note, Physician History of Present Illness: Pt' returned from OR. Pt's right leg/foot pain is improved. Pt w/o SOB, CP, palp, abd pain. - Current Medication List Current Medications: Active Medications Acetaminophen (Tylenol -) 650 mg PO Q6H PRN PRN Reason: PAIN Acetaminophen (Tylenol -) 325 mg PO Q4H PRN PRN Reason: PAIN Stop: 08/10/17 12:35 Last Admin: 08/07/17 13:36 Dose: 325 mg Aspirin (Ecotrin -) 81 mg PO DAILY [facility] Ezetimibe (Zetia -) 10 mg PO DAILY [facility] Heparin Sodium (Porcine) (Heparin -) 1,000 unit IVPUSH PRN PRN PRN Reason: Heparin Heparin Sodium (Porcine) (Heparin -) 5,000 unit IVPUSH PRN PRN PRN Reason: Heparin Dextrose/Sodium Chloride (D5-Ns -) 1,000 mls @ 50 mls/hr IV ASDIR DENISE Last Admin: 08/07/17 13:31 Dose: 50 mls/hr HEPARIN SOD,PORK IN 0.45% NACL (Heparin-1/2ns 25,000 Units/500) 25,000 units in 500 mls @ 20 mls/hr IVPB TITR DENISE; 1,000 UNITS/HR PRN Reason: Protocol Last Admin: 08/07/17 13:30 Dose: 1,000 units/hr, 20 mls/hr Insulin Aspart (Novolog Vial Sliding Scale -) 1 vial SQ ACHS DENISE PRN Reason: Protocol Metoprolol Succinate (Toprol Xl -) 100 mg PO DAILY [facility] Non-Formulary Medication (Erlotinib Hcl [Tarceva]) 50 mg PO DAILY [facility] Ondansetron HCl (Zofran Injection) 4 mg IVPUSH Q6H PRN PRN Reason: NAUSEA AND/OR VOMITING Oxycodone HCl (Roxicodone -) 5 mg PO Q4H PRN PRN Reason: PAIN Last Admin: 08/07/17 13:36 Dose: 5 mg - Objective Vital Signs: Vital Signs Temperature 97.5 F L 08/07/17 12:40 Pulse Rate 82 08/07/17 12:40 Respiratory Rate 18 08/07/17 12:40 Blood Pressure 186/77 08/07/17 12:40 O2 Sat by Pulse Oximetry (%) 99 08/07/17 12:40 Constitutional: Yes: No Distress, Calm Cardiovascular: Yes: Regular Rate and Rhythm, S1, S2 Respiratory: Yes: Regular, CTA Bilaterally, Other Gastrointestinal: Yes: Normal Bowel Sounds, Soft. No: Tenderness Extremities: Yes: Other (right foot is warm; pt is moving his toes) Edema: No Neurological: Yes: Alert, Oriented Labs: CBC, BMP 08/07/17 07:30 08/07/17 07:30 INR, PTT INR 1.70 (0.82-1.09) H 08/07/17 07:30 Problem List - Problems (1) Arterial occlusion, lower extremity Code(s): I70.209 - UNSP ATHSCL [place] ARTERIES OF EXTREMITIES, UNSP EXTREMITY (2) Supratherapeutic INR Code(s): R79.1 - ABNORMAL COAGULATION PROFILE (3) Lung cancer Code(s): C34.90 - MALIGNANT NEOPLASM OF UNSP PART OF UNSP BRONCHUS OR LUNG (4) Diabetes mellitus Code(s): E11.9 - TYPE 2 DIABETES MELLITUS WITHOUT COMPLICATIONS Qualifiers: Diabetes mellitus type: type 2 Diabetes mellitus complication detail: with other circulatory complications (5) S/P lobectomy of lung Code(s): Z90.2 - ACQUIRED ABSENCE OF LUNG [PART OF] (6) PVD (peripheral vascular disease) Code(s): I73.9 - PERIPHERAL VASCULAR DISEASE, UNSPECIFIED (7) History of left above knee amputation Code(s): Z89.612 - ACQUIRED ABSENCE OF LEFT LEG ABOVE KNEE (8) Paroxysmal atrial fibrillation Code(s): I48.0 - PAROXYSMAL ATRIAL FIBRILLATION Assessment/Plan Vasc Sx consult appreciated; s/p OR today. Cardio consult for Preop clearance appreciated Heme/ Onco consult appreciated DM meds on hold; BGM and Regular Insulin coverage. AM labs. Heparin drip. Case was d/w pt's nurse. Case was d/w pt and family- at bedside
[2017-08-08] MEDS: INSULIN SLIDING SCALE (NOVOLOG) 1 VIAL SQ SCH ×4 (06:38→21:16)
[2017-08-08] MEDS: oxyCODONE HCL 5 MG TABLET PO PRN ×2 (06:38→21:15)
[2017-08-08] MEDS: ACETAMINOPHEN 325 MG TABLET (FP) PO PRN ×2 (06:39→21:16)
[2017-08-08 07:47] LABS: HEMATOCRIT 36.9 % (35.4-49); HEMOGLOBIN 11.4 GM/dL (11.7-16.9); MEAN CELL VOLUME 77.6 fl (80-96); MEAN PLT VOLUME 9.4 fl (7.5-11.1); PLATELET COUNT 312 K/MM3 (134-434); RBC 4.76 M/mm3 (4.00-5.60); RDW 18.6 % (11.9-15.9); WHITE BLOOD COUNT 12.5 K/mm3 (4.0-10.0)
[2017-08-08 08:14] LABS: CHLORIDE 108 mmol/L (98-107); POTASSIUM 3.9 mmol/L (3.5-5.1); SODIUM 141 mmol/L (136-145)
[2017-08-08 08:22] LABS: ALBUMIN 2.2 g/dl (3.4-5.0); ALK PHOS 57 U/L (45-117); ANION GAP 12 (8-16); BILIRUBIN,TOTAL 0.8 mg/dL (0.2-1.0); BLOOD UREA NITROGEN 14 mg/dL (7-18); CALCIUM 7.9 mg/dL (8.5-10.1); CO2 21 mmol/L (21-32); CREATININE 0.6 mg/dL (0.7-1.3); GLUCOSE,RANDOM 120 mg/dL (74-106); SGOT/AST 23 U/L (15-37); SGPT/ALT 17 U/L (12-78); TOT PROT 5.8 g/dl (6.4-8.2)
--- NOTE | 2017-08-08 09:08 | PN ---
Progress Note (short form) - Note Progress Note: Anesthesiology Post-op POD#1 s/p Angiogram and thrombectomy of lower extremity under MAC. Pt. is awake and alert. He c/o a small amount of pain in leg but states that it is much improved from pre-op. Otherwise, he has no complaints. VSS.
[2017-08-08] MEDS: HEPARIN SOD,PORK IN 0.45% NACL 25,000 UNITS/500 ML INFUS.BAG IVPB SCH ×2 (09:30→14:21)
[2017-08-08] MEDS: EZETIMIBE 10 MG TABLET (FP) PO SCH (09:51)
[2017-08-08] MEDS: ASPIRIN COATED 81 MG TABLET.EC PO SCH (09:51)
[2017-08-08] MEDS: METOPROLOL SUCCINATE 100 MG TAB.SR.24H (FP) PO SCH (09:51)
[2017-08-08] MEDS: ERLOTINIB HCL PO SCH (09:52)
[2017-08-08] MEDS ORDERED: INSULIN (NOVOLOG) ASPART 100 UNITS/ML 10ML VIAL ONE (11:38)
--- NOTE | 2017-08-08 11:58 | PN ---
Progress Note (short form) - Note Progress Note: POD 1 VSS Right foot warm Thigh wound dry On IV Heparin. Need Hematology input regarding best anticoagulant to use - Lovenox may be better than Coumadin with underlying cancer. Plan: OOB Hematology F/U Continue IV Heparin until decision made. Problem List - Problems (1) Arterial graft thrombosis Code(s): T82.868A - THROMBOSIS DUE TO VASCULAR PROSTH DEV/GRFT, INIT Qualifiers: Encounter type: initial encounter Qualified Code(s): T82.868A - Thrombosis due to vascular prosthetic devices, implants and grafts, initial encounter
--- NOTE | 2017-08-08 12:09 | PN ---
Progress Note, Physician History of Present Illness: seen and examined today in nad. states he is feeling better. minimal RLE pain. no overnight events. no new complaints - Current Medication List Current Medications: Active Medications Acetaminophen (Tylenol -) 650 mg PO Q6H PRN PRN Reason: PAIN Last Admin: 08/08/17 00:01 Dose: 650 mg Acetaminophen (Tylenol -) 325 mg PO Q4H PRN PRN Reason: PAIN Stop: 08/10/17 12:35 Last Admin: 08/08/17 06:39 Dose: 325 mg Aspirin (Ecotrin -) 81 mg PO DAILY [facility] Last Admin: 08/08/17 09:51 Dose: 81 mg Ezetimibe (Zetia -) 10 mg PO DAILY [facility] Last Admin: 08/08/17 09:51 Dose: 10 mg Heparin Sodium (Porcine) (Heparin -) 1,000 unit IVPUSH PRN PRN PRN Reason: Heparin Last Admin: 08/08/17 03:09 Dose: 1,000 unit Heparin Sodium (Porcine) (Heparin -) 5,000 unit IVPUSH PRN PRN PRN Reason: Heparin HEPARIN SOD,PORK IN 0.45% NACL (Heparin-1/2ns 25,000 Units/500) 25,000 units in 500 mls @ 20 mls/hr IVPB TITR DENISE; 1,000 UNITS/HR PRN Reason: Protocol Last Admin: 08/08/17 09:30 Dose: 700 units/hr, 14 mls/hr Insulin Aspart (Novolog Vial Sliding Scale -) 1 vial SQ ACHS [facility] PRN Reason: Protocol Last Admin: 08/08/17 06:38 Dose: Not Given Metoprolol Succinate (Toprol Xl -) 100 mg PO DAILY [facility] Last Admin: 08/08/17 09:51 Dose: 100 mg Non-Formulary Medication (Erlotinib Hcl [Tarceva]) 50 mg PO DAILY [facility] Last Admin: 08/08/17 09:52 Dose: 50 mg Ondansetron HCl (Zofran Injection) 4 mg IVPUSH Q6H PRN PRN Reason: NAUSEA AND/OR VOMITING Oxycodone HCl (Roxicodone -) 5 mg PO Q4H PRN PRN Reason: PAIN Last Admin: 08/08/17 06:38 Dose: 5 mg - Objective Vital Signs: Vital Signs Temperature 98.2 F 08/08/17 05:58 Pulse Rate 88 08/08/17 05:58 Respiratory Rate 20 08/08/17 05:58 Blood Pressure 145/67 08/08/17 05:58 O2 Sat by Pulse Oximetry (%) 99 08/07/17 21:00 Constitutional: Yes: No Distress, Calm Eyes: Yes: Conjunctiva Clear, EOM Intact, PERRL HENT: Yes: Atraumatic, Normocephalic Neck: Yes: Supple, Trachea Midline Cardiovascular: Yes: Pulse Irregular, S1, S2. No: Bradycardia, Tachycardia, Bruit, JVD, Gallop, Murmur, Rub, S3, S4, Varicosities Respiratory: Yes: Regular, CTA Bilaterally. No: Rales, Rhonchi, Wheezes Gastrointestinal: Yes: Normal Bowel Sounds, Soft. No: Distention, Tenderness Extremities: Yes: Amputation Edema: No Peripheral Pulses WNL: No Neurological: Yes: Alert, Oriented Psychiatric: Yes: Alert, Oriented Labs: CBC, BMP 08/08/17 06:00 08/08/17 06:00 INR, PTT INR 1.70 (0.82-1.09) H 08/07/17 07:30 - ....Imaging Chest X-ray: Report Reviewed, Image Reviewed EKG: Report Reviewed, Image Reviewed Other: Report Reviewed, Image Reviewed Assessment/Plan 82 year old man with a history of x/o Lung CA, s/p Right Lobectomy, on Tarceva, Diabetes, HTN , s/p left LE AKA, adm with RLE ischemia. Arterial occlusion, lower extremity -s/p open thrombectomy of fem/pop bypass yesterday, tolerated procedure well from a cardiac standpoint -on heparin gtt, hematology evaluation appreciated, likely plan for Lovenox going forward for full AC -Cont ASA -ECHO: normal LVEF. -EKG: sinus tachycardia initially; now normal HR. HTN-variable but adequate -cont Toprol for now Hypercholesteremia -on zetia
--- NOTE | 2017-08-08 13:09 | PN ---
Progress Note (short form) - Note Progress Note: Patient seen and examined s/p procedure yesterday. O/E: Constitutional: Yes: Well Nourished, No Distress, Calm Eyes: Yes: Conjunctiva Clear HENT: Yes: Atraumatic Neck: Yes: Supple Cardiovascular: Yes: Regular Rate and Rhythm Respiratory: Yes: Regular Gastrointestinal: Yes: Normal Bowel Sounds, Soft, Abdomen, Obese Last Vital Signs Temp Pulse Resp BP Pulse Ox 97.4 F L 103 H 20 160/83 98 08/06/17 06:00 08/06/17 06:00 08/06/17 06:00 08/06/17 06:00 08/05/17 21:00 CBC, BMP 08/06/17 07:15 08/06/17 07:15 Current Medications Generic Name Dose Route Start Last Admin Trade Name Freq PRN Reason Stop Dose Admin Acetaminophen 650 mg 08/04/17 06:23 08/06/17 12:02 Tylenol - PO 650 mg Q6H PRN Administration PAIN Aspirin 81 mg 08/04/17 10:00 08/06/17 11:57 Ecotrin - PO 81 mg DAILY [facility] Administration Ezetimibe 10 mg 08/04/17 10:00 08/06/17 11:57 Zetia - PO 10 mg DAILY [facility] Administration Heparin Sodium (Porcine) 1,000 unit 08/05/17 19:07 Heparin - IVPUSH PRN PRN Heparin Heparin Sodium (Porcine) 5,000 unit 08/05/17 19:07 Heparin - IVPUSH PRN PRN Heparin HEPARIN SOD,PORK IN 0.45% NACL 25,000 units in 500 mls @ 20 mls/hr 08/06/17 00 :01 08/06/17 00:07 Heparin-1/2ns 25,000 Units/500 IVPB 1,000 units/hr TITR DENISE 20 mls/hr Protocol Administration 1,000 UNITS/HR Dextrose/Sodium Chloride 1,000 mls @ 50 mls/hr 08/05/17 19:10 08/05/17 21:51 D5-Ns - IV 50 mls/hr ASDIR DENISE Administration Insulin Aspart 1 vial 08/04/17 07:00 08/06/17 12:09 Novolog Vial Sliding Scale - SQ Not Given ACHS [facility] Protocol Metoprolol Succinate 100 mg 08/04/17 10:00 08/06/17 11:57 Toprol Xl - PO 100 mg DAILY [facility]ISE Administration Ptt's Own Med ( 50 mg 08/04/17 15:15 08/06/17 11:58 Erlotinib Hcl [ PO 50 mg Tarceva] 50 Mg) DAILY DENISE Administration Thrombosed Bypass: vascular c/s noted now on heparin drip on asa ideal AC choice, indefinite lovenox either 1.5 mg/kg/day or 1mg/kg/day bid when being ready for discharge/with aspirin Advanced Lung Adeno: will c/w tarceva will f.u in office for further Rx , likely will dc tarceva pAfib: Cardiology c/w reviewed will follow.
--- NOTE | 2017-08-08 13:42 | PN ---
Progress Note, Physician History of Present Illness: Pt's right leg/foot pain is improved. Pt w/o SOB, CP, palp, abd pain. - Current Medication List Current Medications: Active Medications Acetaminophen (Tylenol -) 650 mg PO Q6H PRN PRN Reason: PAIN Last Admin: 08/08/17 00:01 Dose: 650 mg Acetaminophen (Tylenol -) 325 mg PO Q4H PRN PRN Reason: PAIN Stop: 08/10/17 12:35 Last Admin: 08/08/17 06:39 Dose: 325 mg Aspirin (Ecotrin -) 81 mg PO DAILY [facility] Last Admin: 08/08/17 09:51 Dose: 81 mg Ezetimibe (Zetia -) 10 mg PO DAILY [facility] Last Admin: 08/08/17 09:51 Dose: 10 mg Heparin Sodium (Porcine) (Heparin -) 1,000 unit IVPUSH PRN PRN PRN Reason: Heparin Last Admin: 08/08/17 03:09 Dose: 1,000 unit Heparin Sodium (Porcine) (Heparin -) 5,000 unit IVPUSH PRN PRN PRN Reason: Heparin HEPARIN SOD,PORK IN 0.45% NACL (Heparin-1/2ns 25,000 Units/500) 25,000 units in 500 mls @ 20 mls/hr IVPB TITR DENISE; 1,000 UNITS/HR PRN Reason: Protocol Last Admin: 08/08/17 09:30 Dose: 700 units/hr, 14 mls/hr Insulin Aspart (Novolog Vial Sliding Scale -) 1 vial SQ ACHS [facility] PRN Reason: Protocol Last Admin: 08/08/17 12:18 Dose: Not Given Metoprolol Succinate (Toprol Xl -) 100 mg PO DAILY [facility] Last Admin: 08/08/17 09:51 Dose: 100 mg Non-Formulary Medication (Erlotinib Hcl [Tarceva]) 50 mg PO DAILY [facility] Last Admin: 08/08/17 09:52 Dose: 50 mg Ondansetron HCl (Zofran Injection) 4 mg IVPUSH Q6H PRN PRN Reason: NAUSEA AND/OR VOMITING Oxycodone HCl (Roxicodone -) 5 mg PO Q4H PRN PRN Reason: PAIN Last Admin: 08/08/17 06:38 Dose: 5 mg - Objective Vital Signs: Vital Signs Temperature 97.8 F 08/08/17 10:00 Pulse Rate 82 08/08/17 10:00 Respiratory Rate 18 08/08/17 10:00 Blood Pressure 124/53 08/08/17 10:00 O2 Sat by Pulse Oximetry (%) 99 08/07/17 21:00 Constitutional: Yes: No Distress, Calm Cardiovascular: Yes: Regular Rate and Rhythm, S1, S2 Respiratory: Yes: Regular, CTA Bilaterally, Other (coarse BS) Gastrointestinal: Yes: Normal Bowel Sounds, Soft. No: Tenderness Extremities: Yes: Other (Right leg is warm) Labs: CBC, BMP 08/08/17 06:00 08/08/17 06:00 INR, PTT INR 1.70 (0.82-1.09) H 08/07/17 07:30 Problem List - Problems (1) Arterial occlusion, lower extremity Code(s): I70.209 - UNSP ATHSCL [place] ARTERIES OF EXTREMITIES, UNSP EXTREMITY (2) Supratherapeutic INR Code(s): R79.1 - ABNORMAL COAGULATION PROFILE (3) Lung cancer Code(s): C34.90 - MALIGNANT NEOPLASM OF UNSP PART OF UNSP BRONCHUS OR LUNG (4) Diabetes mellitus Code(s): E11.9 - TYPE 2 DIABETES MELLITUS WITHOUT COMPLICATIONS Qualifiers: Diabetes mellitus type: type 2 Diabetes mellitus complication detail: with other circulatory complications (5) S/P lobectomy of lung Code(s): Z90.2 - ACQUIRED ABSENCE OF LUNG [PART OF] (6) PVD (peripheral vascular disease) Code(s): I73.9 - PERIPHERAL VASCULAR DISEASE, UNSPECIFIED (7) History of left above knee amputation Code(s): Z89.612 - ACQUIRED ABSENCE OF LEFT LEG ABOVE KNEE (8) Paroxysmal atrial fibrillation Code(s): I48.0 - PAROXYSMAL ATRIAL FIBRILLATION Assessment/Plan Vasc Sx consult appreciated; s/p OR yesterday. Cardio consult for Preop clearance appreciated Heme/ Onco consult appreciated DM meds on hold; BGM and Regular Insulin coverage. AM labs. Heparin drip. Pt needs Lovenox Case was d/w pt's nurse. Case was d/w pt and pt's son- at bedside
[2017-08-09] MEDS: ACETAMINOPHEN 325 MG TABLET (FP) PO PRN (06:10)
[2017-08-09] MEDS: oxyCODONE HCL 5 MG TABLET PO PRN (06:10)
[2017-08-09] MEDS: INSULIN SLIDING SCALE (NOVOLOG) 1 VIAL SQ SCH ×4 (06:11→21:51)
[2017-08-09 08:26] LABS: MCHC 30.8 g/dl (32.0-35.9); MEAN CELL VOLUME 77.9 fl (80-96); MEAN PLT VOLUME 9.5 fl (7.5-11.1); PLATELET COUNT 342 K/MM3 (134-434); RBC 5.01 M/mm3 (4.00-5.60); RDW 18.1 % (11.9-15.9); WHITE BLOOD COUNT 14.2 K/mm3 (4.0-10.0)
[2017-08-09 08:48] LABS: ANION GAP 9 (8-16); BLOOD UREA NITROGEN 15 mg/dL (7-18); CALCIUM 8.4 mg/dL (8.5-10.1); CHLORIDE 103 mmol/L (98-107); CO2 26 mmol/L (21-32); CREATININE 0.7 mg/dL (0.7-1.3); GLUCOSE,RANDOM 106 mg/dL (74-106); POTASSIUM 4.4 mmol/L (3.5-5.1); SODIUM 138 mmol/L (136-145)
--- NOTE | 2017-08-09 08:58 | PN ---
Progress Note (short form) - Note Progress Note: VSS Foot warm Incision clean and dry Heme agrees with outpatient Lovenox. Will start 1.5 mg/kg/day and D/C heparin drip Problem List - Problems (1) Arterial graft thrombosis Code(s): T82.868A - THROMBOSIS DUE TO VASCULAR PROSTH DEV/GRFT, INIT Qualifiers: Encounter type: initial encounter Qualified Code(s): T82.868A - Thrombosis due to vascular prosthetic devices, implants and grafts, initial encounter
[2017-08-09] MEDS: METOPROLOL SUCCINATE 100 MG TAB.SR.24H (FP) PO SCH (09:58)
[2017-08-09] MEDS: ASPIRIN COATED 81 MG TABLET.EC PO SCH (09:58)
[2017-08-09] MEDS: EZETIMIBE 10 MG TABLET (FP) PO SCH (09:59)
[2017-08-09] MEDS: ERLOTINIB HCL PO SCH (10:00)
--- NOTE | 2017-08-09 14:52 | DS ---
Physical Examination Vital Signs: Vital Signs Temperature 98.6 F 08/09/17 14:14 Pulse Rate 87 08/09/17 14:14 Respiratory Rate 18 08/09/17 14:14 Blood Pressure 134/68 08/09/17 14:14 O2 Sat by Pulse Oximetry (%) 99 08/08/17 09:00 Findings/Remarks: Pt w/o right leg pain; right leg feels warm. Pt w/o SOB, CP, palp, abd pain. Constitutional: Yes: No Distress, Calm Cardiovascular: Yes: Regular Rate and Rhythm, S1, S2 Respiratory: Yes: Regular, Other (coarse BS bilat.). No: Rales, Wheezes Gastrointestinal: Yes: Normal Bowel Sounds, Soft. No: Tenderness Extremities: Yes: Other (right leg is normal temperature, not painful to palpation or movements.) Neurological: Yes: Alert, Oriented Labs: CBC, BMP 08/09/17 06:30 08/09/17 06:30 Discharge Summary Reason For Visit: OCCLUSION OF ARTERY OF LOWER EXTREMITY Current Active Problems Arterial graft thrombosis (Acute) Arterial occlusion, lower extremity (Acute) History of left above knee amputation (Acute) PVD (peripheral vascular disease) (Acute) S/P lobectomy of lung (Acute) Supratherapeutic INR (Acute) Hospital Course: Pt came to ER c/o right leg pain and coldness for couple of days, found to have occlusion of bypass graft although his INR was supratherapeutic; due to supratherapeutic INR pt didn't go to OR just after few days. Pt was seen in consult by Vascular Surgery ( Dr Robertson covering Dr Davenport, and Dr. Davenport), Cardio ( Dr. Gar), Heme/ Onco (Dr. Varela/ Julieta). Pt would be DC'ed home on Lovenox SQ. Condition: Improved - Instructions Diet, Activity, Other Instructions: ADA, Low salt, Low Cholesterol Referrals: Suhail Davenport MD [Staff Physician] - (within 1 week) Brent Roberts MD [Primary Care Provider] - (in 1-2 weeks) Cale Gar MD [Staff Physician] - (as scheduled) Tacho Rendon MD [Staff Physician] - (as scheduled) Disposition: HOME - Home Medications Comprehensive Discharge Medication List: Ambulatory Orders this list might NOT be accurate. Losartan Potassium [Cozaar -] 50 mg PO HS 01/06/16 Metformin HCl 500 mg PO DAILY 01/06/16 Erlotinib HCl [Tarceva] 50 mg PO DAILY 05/22/17 Ezetimibe 10 mg PO DAILY 05/22/17 Metoprolol Succinate [Toprol Xl] 100 mg PO DAILY 05/22/17 Warfarin Na [Coumadin -] 1 mg PO ASDIR 05/22/17 Metoclopramide HCl [Reglan -] 5 mg PO HS tablet 05/26/17 Sitagliptin Phosphate [Januvia -] 100 mg PO DAILY@0700 #30 tablet 05/26/17 Aspirin [ASA -] 81 mg PO DAILY 08/03/17 Warfarin Sodium [Coumadin] 2 mg PO ASDIR 08/03/17
[2017-08-09] MEDS: ENOXAPARIN NA (PORCINE) 100 MG/1 ML DISP.SYRIN SQ SCH (15:12)
--- NOTE | 2017-08-09 17:43 | PN ---
Progress Note (short form) - Note Progress Note: Enrrique Palmer appointment with ([address] [place] [address]) 08/15/2017 4:15pm.
[2017-08-10 01:47] VITALS: PULSE 98
[2017-08-10 06:14] VITALS: BP 150/69; TEMP 98.8
[2017-08-10] MEDS: INSULIN SLIDING SCALE (NOVOLOG) 1 VIAL SQ SCH ×2 (06:57→12:09)
[2017-08-10 07:34] LABS: HEMATOCRIT 38.3 % (35.4-49); HEMOGLOBIN 11.9 GM/dL (11.7-16.9); MCH 24.1 pg (25.7-33.7); MCHC 31.1 g/dl (32.0-35.9); MEAN CELL VOLUME 77.4 fl (80-96); MEAN PLT VOLUME 9.1 fl (7.5-11.1); PLATELET COUNT 365 K/MM3 (134-434); RBC 4.94 M/mm3 (4.00-5.60); RDW 18.8 % (11.9-15.9); WHITE BLOOD COUNT 13.2 K/mm3 (4.0-10.0)
[2017-08-10] MEDS: EZETIMIBE 10 MG TABLET (FP) PO SCH (10:33)
[2017-08-10] MEDS: ASPIRIN COATED 81 MG TABLET.EC PO SCH (10:33)
[2017-08-10] MEDS: METOPROLOL SUCCINATE 100 MG TAB.SR.24H (FP) PO SCH (10:33)
[2017-08-10] MEDS: ENOXAPARIN NA (PORCINE) 100 MG/1 ML DISP.SYRIN SQ SCH (10:35)
[2017-08-10] MEDS: ERLOTINIB HCL PO SCH (10:35)
--- NOTE | 2017-08-10 10:39 | PATH ---
Surgical Pathology Report Patient Name: BRINDA MARTINEZ Med. Rec. #: [id number] /Age/Gender: 1935 (Age: 82) / M Account: [id number] Location: [address] [place] [address]/[facility] Taken: 08/07/2017 Received: 08/09/2017 Reported: 08/10/2017 Physicians: Suhail Davenport M.D. Specimen(s) Received THROMBUS RIGHT FEM.-PAP BYPASS Clinical History Thrombosed femoral popliteal bypass right leg Final Diagnosis THROMBUS, RIGHT FEMORAL-POPLITEAL BYPASS, THROMBECTOMY: BLOOD CLOT (THROMBUS). Electronically Signed Saniya Gee M.D. Gross Description Received in formalin labeled "thrombus right femoral-popliteal bypass," is a 1.7 x 1.0 x 0.3 cm aggregate of red brown blood clot. The specimen is entirely submitted in one cassette. /08/09/201708/09/2017
--- NOTE | 2017-08-10 11:42 | PN ---
Progress Note, Physician History of Present Illness: Pt's right leg/foot pain is improved. Pt w/o SOB, CP, palp, abd pain. Pt and pt's son (at bedside) feels comfortable giving himself Lovenox. - Current Medication List Current Medications: Active Medications Acetaminophen (Tylenol -) 650 mg PO Q6H PRN PRN Reason: PAIN Last Admin: 08/08/17 00:01 Dose: 650 mg Acetaminophen (Tylenol -) 325 mg PO Q4H PRN PRN Reason: PAIN Stop: 08/10/17 12:35 Last Admin: 08/09/17 06:10 Dose: 325 mg Aspirin (Ecotrin -) 81 mg PO DAILY [facility] Last Admin: 08/10/17 10:33 Dose: 81 mg Ezetimibe (Zetia -) 10 mg PO DAILY [facility] Last Admin: 08/10/17 10:33 Dose: 10 mg Enoxaparin Sodium (Lovenox -) 100 mg SQ DAILY [facility] Last Admin: 08/10/17 10:35 Dose: 100 mg Insulin Aspart (Novolog Vial Sliding Scale -) 1 vial SQ ACHS [facility] PRN Reason: Protocol Last Admin: 08/10/17 06:57 Dose: Not Given Metoprolol Succinate (Toprol Xl -) 100 mg PO DAILY [facility] Last Admin: 08/10/17 10:33 Dose: 100 mg Non-Formulary Medication (Erlotinib Hcl [Tarceva]) 50 mg PO DAILY [facility] Last Admin: 08/10/17 10:35 Dose: 50 mg Ondansetron HCl (Zofran Injection) 4 mg IVPUSH Q6H PRN PRN Reason: NAUSEA AND/OR VOMITING Oxycodone HCl (Roxicodone -) 5 mg PO Q4H PRN PRN Reason: PAIN Last Admin: 08/09/17 06:10 Dose: 5 mg - Objective Vital Signs: Vital Signs Temperature 98.8 F 08/10/17 06:00 Pulse Rate 98 H 08/10/17 06:00 Respiratory Rate 18 08/10/17 06:00 Blood Pressure 150/69 08/10/17 06:00 O2 Sat by Pulse Oximetry (%) 98 08/09/17 21:00 Constitutional: Yes: No Distress, Calm Cardiovascular: Yes: Regular Rate and Rhythm, S1, S2 Respiratory: Yes: Regular, CTA Bilaterally. No: Rales Gastrointestinal: Yes: Normal Bowel Sounds, Soft. No: Tenderness Extremities: Yes: Other (Right foot with normal temperature, no skin discoloration) Labs: CBC, BMP 08/10/17 07:00 08/09/17 06:30 INR, PTT INR 1.70 (0.82-1.09) H 08/07/17 07:30 Problem List - Problems (1) Arterial graft thrombosis Code(s): T82.868A - THROMBOSIS DUE TO VASCULAR PROSTH DEV/GRFT, INIT Qualifiers: Encounter type: initial encounter Qualified Code(s): T82.868A - Thrombosis due to vascular prosthetic devices, implants and grafts, initial encounter (2) Arterial occlusion, lower extremity Code(s): I70.209 - UNSP ATHSCL [place] ARTERIES OF EXTREMITIES, UNSP EXTREMITY (3) Supratherapeutic INR Code(s): R79.1 - ABNORMAL COAGULATION PROFILE (4) Lung cancer Code(s): C34.90 - MALIGNANT NEOPLASM OF UNSP PART OF UNSP BRONCHUS OR LUNG (5) Diabetes mellitus Code(s): E11.9 - TYPE 2 DIABETES MELLITUS WITHOUT COMPLICATIONS Qualifiers: Diabetes mellitus type: type 2 Diabetes mellitus complication detail: with other circulatory complications (6) S/P lobectomy of lung Code(s): Z90.2 - ACQUIRED ABSENCE OF LUNG [PART OF] (7) PVD (peripheral vascular disease) Code(s): I73.9 - PERIPHERAL VASCULAR DISEASE, UNSPECIFIED (8) History of left above knee amputation Code(s): Z89.612 - ACQUIRED ABSENCE OF LEFT LEG ABOVE KNEE (9) Paroxysmal atrial fibrillation Code(s): I48.0 - PAROXYSMAL ATRIAL FIBRILLATION Assessment/Plan Vasc Sx consult appreciated; s/p OR for revascularization of clotted graft. Cardio consult for Preop clearance appreciated. Heme/ Onco consult appreciated; considered that patient fell Coumadin therapy and needs Lovenox. Pt needs Lovenox SQ daily. Case was d/w pt's nurse. Case was d/w pt and pt's son- at bedside. Pt's left leg prostesis doesn't fit well (as patient is losing weight), making walking is very difficult; I recommend PT and VNS for reevaluation of home conditions and patient needs so will preserve optimal functional status, prevent falls, prevent re-hospitalization.
--- NOTE | 2017-08-12 20:22 | PN ---
Progress Note, Physician Chief Complaint: Pt A&Ox3;no chest pain or dyspnea; minimal LE discomfort. History of Present Illness: Patient is an 82 year old male with a significant past medical history of x/o Lung CA, s/p Right Lobectomy, on Tarceva, Diabetes, HTN , s/p left LE AKA, who presents to the ED with complaints of decreased right leg circulation that began this morning. As per patient's son patient began experiencing decreased right lower leg circulation as well as lower lower leg rash suddenly this morning while at home. Patient's son states patient's leg initially had purple/ black coloration but has since begun to appear normal. Patient's son states patient initially experienced 9/10 lower right leg pain this morning but currently feel 7/10 leg pain while here in the ED. He reports patient experienced similar episode in November 2016 where his right leg began to turn slightly blue while feeling cold to touch. Patient's son states patient currently has prosthetic left leg beginning at the knee due to same condition. Denies chest pain, SOB. Denies nausea, vomiting. Denies contact with sick individuals, out of state travel. Denies any other symptoms. Allergies: Vancomycin Social history: Lives with . Former smoker. No alcohol. No illicit drugs. Surgical history: Left left stent. Left leg knee amputee. PMD Dr. Brent Roberts Vascular: Dr. Davenport - Objective Vital Signs: Vital Signs Temperature 98.8 F 08/10/17 06:00 Pulse Rate 98 H 08/10/17 06:00 Respiratory Rate 18 08/10/17 06:00 Blood Pressure 150/69 08/10/17 06:00 O2 Sat by Pulse Oximetry (%) 98 08/09/17 21:00 Constitutional: Yes: Calm Eyes: Yes: WNL HENT: Yes: WNL Neck: Yes: WNL Cardiovascular: Yes: Regular Rate and Rhythm Respiratory: Yes: Regular Gastrointestinal: Yes: Soft ...Rectal Exam: Yes: Deferred Genitourinary: No: Anuria Breast(s): Yes: WNL Musculoskeletal: Yes: Muscle Weakness Extremities: Yes: Amputation Peripheral Pulses WNL: No Peripheral Pulses: Right Dorsalis Pedis: 1+ Integumentary: Yes: WNL Neurological: Yes: Alert, Oriented, Weakness Psychiatric: Yes: WNL Labs: CBC, BMP 08/10/17 07:00 08/09/17 06:30 INR, PTT INR 1.70 (0.82-1.09) H 08/07/17 07:30 Problem List - Problems (1) Arterial occlusion, lower extremity Assessment/Plan: s/p right thrombectomy fem/pop bypass. For Lovenox as outpatient (discussed with Dr. Correa). aggressive control of lipids (increase statin, as LDL cholesterol is still above 100 mg/dL). F/u with Dr. Davenport. Code(s): I70.209 - UNSP ATHSCL [place] ARTERIES OF EXTREMITIES, UNSP EXTREMITY (2) PAD (peripheral artery disease) Code(s): I73.9 - PERIPHERAL VASCULAR DISEASE, UNSPECIFIED (3) Hypercholesteremia Assessment/Plan: LDL cholesterol 105 mg/dL: increase statin. F/u TSH. Code(s): E78.0 - PURE HYPERCHOLESTEROLEMIA * DO NOT USE * (4) Lung cancer Assessment/Plan: f/u with oncologist. Code(s): C34.90 - MALIGNANT NEOPLASM OF UNSP PART OF UNSP BRONCHUS OR LUNG
== END 2017-08-10 14:09 | disposition home or self-care (01) | DRG 253 ==
LOC: JER 13:24 → JERBED 21:00 → J5S 08-04 00:59
PROVIDERS: ADMIT Specialist; ATTEND Specialist
PROC: 04CK0ZZ Extirpation of Matter from Right Femoral Artery, Open Approach (ICD-10-PCS; principal; 2017-08-07 10:00)
PROC: B41FZZZ Fluoroscopy of Right Lower Extremity Arteries (ICD-10-PCS; 2017-08-07 10:00)
DX: T82.868A Thrombosis due to vascular prosthetic devices, implants and grafts, initial encounter (principal); C34.90 Malignant neoplasm of unspecified part of unspecified bronchus or lung; Y83.2 Surgical operation with anastomosis, bypass or graft as the cause of abnormal reaction of the patient, or of later complication, without mention of misadventure at the time of the procedure; R79.1 Abnormal coagulation profile; Z79.01 Long term (current) use of anticoagulants; I10 Essential (primary) hypertension; E11.9 Type 2 diabetes mellitus without complications; Z89.612 Acquired absence of left leg above knee; Z87.891 Personal history of nicotine dependence; I48.91 Unspecified atrial fibrillation; E78.00 Pure hypercholesterolemia, unspecified; Z79.84 Long term (current) use of oral hypoglycemic drugs; K21.9 Gastro-esophageal reflux disease without esophagitis; N40.0 Benign prostatic hyperplasia without lower urinary tract symptoms; Z90.2 Acquired absence of lung [part of]; I48.0 Paroxysmal atrial fibrillation; Z97.14 Presence of artificial left leg (complete) (partial); K59.00 Constipation, unspecified; R00.0 Tachycardia, unspecified; I99.8 Other disorder of circulatory system
CPT/HCPCS: 36415; 71020-TC; 75635-TC; 76000-TC; 80048; 80053; 80061; 81003; 81015; 82550; 83721; 84443; 84484; 85025; 85027; 85610; 85730; 86850; 86900; 86901; 88302-TC; 93005; 93010; 93306-TC; 94760; 99283-25; J1644

== ENCOUNTER 2017-08-27 00:17 | Inpatient (IN) | payer OTHER ==
[2017-08-27 00:37] VITALS: BMI 26.6
--- NOTE | 2017-08-27 01:29 | PDOC ---
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 The son notes that the patient has had painless hematuria for the past day and a half. The son found the patient's urinal full of pink-tinged urine yesterday night, and then found his urinal full of bright red blood with clots tonight. The patient additionally notes right lower rib pain/RUQ pain, cough, nausea, constipation (last BM tonight but prior to that it was a week ago, always brown and hard and not bloody), and generalized fatigue and malaise. He denies fever, chills, vomiting, diarrhea, dysuria, or other symptoms. Past History - Past Medical History Allergies/Adverse Reactions: Allergies Allergy/AdvReac Type Severity Reaction Status Date / Time vancomycin Allergy Severe Verified 08/27/17 00:37 Home Medications: Ambulatory Orders Losartan Potassium [Cozaar -] 50 mg PO HS 01/06/16 Metformin HCl 500 mg PO DAILY 01/06/16 Erlotinib HCl [Tarceva] 50 mg PO DAILY 05/22/17 Ezetimibe 10 mg PO DAILY 05/22/17 Sitagliptin Phosphate [Januvia -] 100 mg PO DAILY@0700 #30 tablet 05/26/17 Aspirin [ASA -] 81 mg PO DAILY 08/03/17 Enoxaparin [Lovenox -] 100 mg SQ DAILY disp.syrin 08/09/17 Oxycodone HCl [Roxicodone -] 5 mg PO Q8H PRN 7 Days #21 tablet MDD 3 08/09/17 Acetaminophen [Extra Strength Non-Aspirin] 500 mg PO DAILY PRN 08/27/17 Atenolol [Tenormin -] 100 mg PO DAILY 08/27/17 Dutasteride 0.5 mg PO DAILY 08/27/17 Anemia: No Asthma: No Cancer: Yes (R LUNG S/P RADIATION) Cardiac Disorders: Yes (afib) CVA: No COPD: No CHF: No DVT: No Dementia: No Diabetes: Yes GI Disorders: Yes (REFLUX) Disorders: Yes (ENLARGED PROSTATE) HTN: Yes Hypercholesterolemia: Yes Liver Disease: No Seizures: No Thyroid Disease: No - Surgical History Abdominal Surgery: No Appendectomy: No Cardiac Surgery: No Cholecystectomy: No Lung Surgery: Yes (R LUNG CA) Neurologic Surgery: No 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) - Immunization History Immunization Up to Date: Yes - Suicide/Smoking/Psychosocial Hx Smoking Status: No Smoking History: Never smoked Have you smoked in the past 12 months: No Number of Cigarettes Smoked Daily: 0 If you are a former smoker, when did you quit?: 1983 Information on smoking cessation initiated: No Hx Alcohol Use: No Drug/Substance Use Hx: No Substance Use Type: None Hx Substance Use Treatment: No Review of Systems - Review of Systems Able to Perform ROS?: Yes Constitutional: Yes: Malaise, Weakness. No: Chills, Fever, Unexplained wgt Loss HEENTM: No: Nose Congestion, Throat Pain Respiratory: No: Cough, Shortness of Breath Cardiac (ROS): Yes: Other (right lower rib pain). No: Chest Pain, Palpitations ABD/GI: Yes: Constipated, Nausea, Other (RUQ pain). No: Diarrhea, Vomiting : Yes: Hematuria. No: Burning, Dysuria, Frequency, Flank Pain Musculoskeletal: No: Back Pain, Neck Pain Integumentary: No: Bruising, Rash Neurological: No: Headache, Numbness, Tingling, Weakness, Dizziness Endocrine: No: Unexplained Weight Gain, Unexplained Weight Loss *Physical Exam - Vital Signs Last Vital Signs Temp Pulse Resp BP Pulse Ox 97.9 F 91 H 20 147/67 99 08/27/17 00:33 08/27/17 00:33 08/27/17 00:33 08/27/17 00:08/27/17 00:33 - Physical Exam General Appearance: Yes: Nourished, Appropriately Dressed, Other (pleastant Palauan-speaking elderly male accompanied at bedside by his son, answering questions appropriately). No: Apparent Distress HEENT: positive: EOMI, JANIEC, Normal Voice, Pale Conjunctivae, Hearing Grossly Normal. negative: Scleral Icterus (R), Scleral Icterus (L), Nasal Congestion Neck: positive: Trachea midline, Supple. negative: Tender, Rigid Respiratory/Chest: positive: Lungs Clear, Other (sunken right chest wall and no breath sounds on the right (patient states d/t lobectomy)). negative: Respiratory Distress, Accessory Muscle Use, Labored Respiration, Crackles, Rhonchi, Stridor, Wheezing Cardiovascular: positive: Regular Rhythm, Regular Rate, S1, S2. negative: Edema , JVD, Murmur Gastrointestinal/Abdominal: positive: Normal Bowel Sounds, Tender (mild ttp RUQ and suprapubic regions, negative Watts's sign), Soft, Protuberent. negative: Organomegaly, Pulsatile Mass, Guarding Musculoskeletal: positive: Normal Inspection. negative: Decreased Range of Motion, Vertebral Tenderness Extremity: positive: Normal Capillary Refill, Normal Inspection, Normal Range of Motion, Other (left AKA, right medial thigh with healing surgical scar which is CDI). negative: Tender, Cyanosis Integumentary: positive: Normal Color, Dry, Warm. 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 negative: Facial Droop , Confused, Disoriented ED Treatment Course - LABORATORY CBC & Chemistry Diagram: 08/27/17 02:07 08/27/17 02:07 Medical Decision Making - Medical Decision Making 82M h/o AFib, art. graft thrombosis, on lovenox/ASA, lung CA s/p lobectomy, DM, HTN, left AKA, and PVD with RLE graft bypass 08/10/17. Presents with hematuria for the past day and a half, weakness, right lower rib pain. On exam he is alert and appropriate, right lower rib ttp, protuberant abdomen, otherwise normal exam. DDX IBNLT hemorrhagic cystitis, coagulopathy 2/2 lovenox and ASA, BPH, bladder CA, etc. Ordered is CBCD, CMP, coags, TS, lipase, UA, cx, EKG, CXR, Zofran, IVF. 08/27/17 04:44 WBC is 14.8 but the patient's WBC is chronically elevated and this is within his baseline range. 08/27/17 07:01 The patient's UA is notable for RBCs, nitrites, trace leukocyte esterase. 08/27/17 07:33 Ceftriaxone [address] Roberts paged and awaiting call back for admission. *DC/Admit/Observation/Transfer Diagnosis at time of Disposition: Hemorrhagic cystitis, Rib pain on right side Abdominal pain Qualifiers: Abdominal location: unspecified location Qualified Code(s): R10.9 - Unspecified abdominal pain - Discharge Dispostion Condition at time of disposition: Guarded Admit: Yes - Referrals Referrals: Brent Barrett MD [Primary Care Provider] - - Patient Instructions - Post Discharge Activity
[2017-08-27] MEDS ORDERED: ONDANSETRON 4 MG/2 ML VIAL IVPUSH ONE (01:47)
[2017-08-27] MEDS ORDERED: SODIUM CHLORIDE 1,000 ML IV STA (01:47)
[2017-08-27 02:14] LABS: BASO % 0.6 % (0-2.0); EOS % 8.2 % (0-4.5); HEMATOCRIT 40.6 % (35.4-49); HEMOGLOBIN 12.7 GM/dL (11.7-16.9); LYMPH % 6.6 % (8-40); MCH 24.4 pg (25.7-33.7); MCHC 31.4 g/dl (32.0-35.9); MEAN CELL VOLUME 77.8 fl (80-96); MONO % 8.4 % (3.8-10.2); NEUT % 76.2 % (42.8-82.8); PLATELET COUNT 369 K/MM3 (134-434); RBC 5.22 M/mm3 (4.00-5.60); RDW 18.6 % (11.9-15.9); WHITE BLOOD COUNT 14.8 K/mm3 (4.0-10.0)
[2017-08-27] MEDS ORDERED: ONDANSETRON 4 MG/2 ML VIAL ONE (02:25)
[2017-08-27 02:40] LABS: ALBUMIN 2.7 g/dl (3.4-5.0); ALK PHOS 89 U/L (45-117); ANION GAP 8 (8-16); BILIRUBIN,TOTAL 0.5 mg/dL (0.2-1.0); BLOOD UREA NITROGEN 18 mg/dL (7-18); CALCIUM 8.6 mg/dL (8.5-10.1); CHLORIDE 98 mmol/L (98-107); CO2 25 mmol/L (21-32); GLUCOSE,RANDOM 126 mg/dL (74-106); POTASSIUM 4.6 mmol/L (3.5-5.1); SGOT/AST 16 U/L (15-37); SGPT/ALT 19 U/L (12-78); SODIUM 131 mmol/L (136-145); TOT PROT 7.6 g/dl (6.4-8.2)
[2017-08-27 02:53] LABS: INR 1.14 (0.82-1.09); PROTHROMBIN TIME (PATIENT) 12.9 SEC (9.98-11.88)
[2017-08-27] MEDS ORDERED: ACETAMINOPHEN 1000 MG/100 ML VIAL (NON FORMULARY) IVPB ONE (03:33)
[2017-08-27 04:56] LABS: URINE APPEARANCE TURBID; URINE BILIRUBIN NEGATIVE (NEGATIVE); URINE BLOOD 3+ (NEGATIVE); URINE COLOR RED; URINE GLUCOSE (UA) NEGATIVE (NEGATIVE); URINE KETONE NEGATIVE (NEGATIVE)
[2017-08-27 04:57] LABS: URINE LEUK ESTERASE TRACE (NEGATIVE); URINE NITRITE POSITIVE (NEGATIVE); URINE PROTEIN 2+ (NEGATIVE)
[2017-08-27 04:58] LABS: URINE BACTERIA FEW /hpf (NONE SEEN)
--- NOTE | 2017-08-27 06:59 | PDOC ---
Attending Attestation - Resident Resident Name: Briseida Pena - ED Attending Attestation I have performed the following: I have examined & evaluated the patient, The case was reviewed & discussed with the resident, I agree w/resident's findings & plan - HPI HPI: 08/27/17 06:58 Pt comes with hematuria that is fetting worse as per his son. - Physicial Exam PE: 08/27/17 06:59 Agree with residents exam.
[2017-08-27] MEDS ORDERED: CEFTRIAXONE 1 GM in DEXTROSE 5%-WATER - 50 ML IVPB ONE (07:04)
[2017-08-27] MEDS ORDERED: CEFTRIAXONE 1 GM/50 ML BAG ONE (07:08)
--- NOTE | 2017-08-27 13:07 | HP ---
Admitting History and Physical - Primary Care Physician PCP: Brent Roberts - Admission Chief Complaint: Blood in Urine History of Present Illness: Pt came to ER with gross hematuria for 2 days. Pt w/o fever/ chills/ dysuria/ abd pain/ back pain. 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) Gastrointestinal: Yes: GERD Renal/: Yes: BPH Heme/Onc: Yes: Cancer (Lung CA), Myeloproliferative Synd Musculoskeletal: Yes: Osteoarthritis, Other (s/p left AKA) Endocrine: Yes: Diabetes Mellitus Additional Past Medical History: PAD, s/p right leg arterial thrombosis and rescue angioplasty (07/2017, since then on Lovenox)) - Past Surgical History Past Surgical History: Yes: Amputation (left AKA), Bypass (RLE) - Smoking History Smoking history: Never smoked Have you smoked in the past 12 months: No Aproximately how many cigarettes per day: 0 If you are a former smoker, when did you quit?: 1983 - Alcohol/Substance Use Hx Alcohol Use: No History of Substance Use: reports: None - Social History ADL: Family Assistance History of Recent Travel: No Home Medications - Allergies Allergies/Adverse Reactions: Allergies Allergy/AdvReac Type Severity Reaction Status Date / Time vancomycin Allergy Severe Verified 08/27/17 00:37 - Home Medications Home Medications: Ambulatory Orders RX: Losartan Potassium [Cozaar -] 50 mg PO HS 01/06/16 RX: Metformin HCl 500 mg PO DAILY 01/06/16 RX: Erlotinib HCl [Tarceva] 50 mg PO DAILY 05/22/17 RX: Ezetimibe 10 mg PO DAILY 05/22/17 RX: Sitagliptin Phosphate [Januvia -] 100 mg PO DAILY@0700 #30 tablet 05/26/17 RX: Aspirin [ASA -] 81 mg PO DAILY 08/03/17 RX: Enoxaparin [Lovenox -] 100 mg SQ DAILY disp.syrin 08/09/17 RX: Oxycodone HCl [Roxicodone -] 5 mg PO Q8H PRN 7 Days #21 tablet MDD 3 Acetaminophen [Extra Strength Non-Aspirin] 500 mg PO DAILY PRN 08/27/17 Atenolol [Tenormin -] 100 mg PO DAILY 08/27/17 RX: Dutasteride 0.5 mg PO DAILY 08/27/17 Family Disease History - Family Disease History Family Disease History: Heart Disease: Sister (IA in her 60s; alive, in her 80s) Review of Systems - Review of Systems Constitutional: denies: Chills, Fever HENT: denies: Ear Discharge, Ear Pain Cardiovascular: denies: Chest Pain, Edema, Palpitations Respiratory: denies: Cough, SOB Gastrointestinal: denies: Abdominal Pain, Nausea, Vomiting Genitourinary: denies: Burning, Discharge, Dysuria, Flank Pain Integumentary: denies: Bruising, Rash Neurological: denies: Change in LOC, Change in Speech, Numbness, Weakness Endocrine: denies: Excessive Sweating, Intolerance to Cold Psychiatric: denies: Anxiety, Depression Physical Examination Vital Signs: Vital Signs Temperature 97.9 F 08/27/17 00:33 Pulse Rate 81 08/27/17 07:55 Respiratory Rate 20 08/27/17 00:33 Blood Pressure 136/54 08/27/17 07:55 O2 Sat by Pulse Oximetry (%) 98 08/27/17 07:55 Constitutional: Yes: No Distress, Calm Eyes: Yes: EOM Intact, PERRL HENT: Yes: Normocephalic. No: Pharyngeal Erythema, Thrush Neck: Yes: Trachea Midline. No: Lymphadenopathy Cardiovascular: Yes: Regular Rate and Rhythm, S1, S2 Respiratory: Yes: Regular, CTA Bilaterally. No: Rales Gastrointestinal: Yes: Normal Bowel Sounds, Soft. No: Tenderness ...Rectal Exam: Yes: Deferred Renal/: No: CVA Tenderness - Left, CVA Tenderness - Right Extremities: Yes: Other (s/p Left AKA). No: Cool, Cyanosis, Pallor Edema: No Integumentary: No: Bruising, Rash Neurological: Yes: Alert, Oriented Psychiatric: Yes: Alert, Oriented Labs: CBC, BMP 08/27/17 02:07 08/27/17 02:07 Imaging - Results Chest X-ray: Report Reviewed Problem List - Problems (1) Gross hematuria Code(s): R31.0 - GROSS HEMATURIA (2) Arterial graft thrombosis Assessment/Plan: on Lovenox after failed Coumadin. Code(s): T82.868A - THROMBOSIS DUE TO VASCULAR PROSTH DEV/GRFT, INIT Qualifiers: Encounter type: initial encounter Qualified Code(s): T82.868A - Thrombosis due to vascular prosthetic devices, implants and grafts, initial encounter (3) PAD (peripheral artery disease) Code(s): I73.9 - PERIPHERAL VASCULAR DISEASE, UNSPECIFIED (4) Atrial fibrillation Code(s): I48.91 - UNSPECIFIED ATRIAL FIBRILLATION Qualifiers: Atrial fibrillation type: unspecified Qualified Code(s): I48.91 - Unspecified atrial fibrillation (5) Diabetes mellitus Code(s): E11.9 - TYPE 2 DIABETES MELLITUS WITHOUT COMPLICATIONS Qualifiers: Diabetes mellitus type: type 2 Diabetes mellitus complication detail: with other circulatory complications (6) Hypercholesteremia Code(s): E78.0 - PURE HYPERCHOLESTEROLEMIA * DO NOT USE * (7) Lung cancer Code(s): C34.90 - MALIGNANT NEOPLASM OF UNSP PART OF UNSP BRONCHUS OR LUNG Assessment/Plan consult, case was d/w Dr. Jennings; OK with Heparin Drip, no bolus Cont meds AM labs
--- NOTE | 2017-08-27 13:33 | PN ---
Progress Note (short form) - Note Progress Note: 82 year old witin documented history with 2 days of gross hematuria. INR is wnl. UA is nitrite pos, suggestive of UTI Recommend CT scan
[2017-08-27] MEDS ORDERED: oxyCODONE HCL 5 MG TABLET PO PRN (13:41)
[2017-08-27] MEDS ORDERED: ACETAMINOPHEN 500 MG TABLET (FP) PO PRN (13:41)
[2017-08-27] MEDS ORDERED: ERLOTINIB HCL PO SCH (13:45)
[2017-08-27] MEDS ORDERED: [UNRECOGNIZED DRUG - OTHER] PO SCH (13:45)
[2017-08-27] MEDS ORDERED: HEPARIN NA (PORCINE) 5,000 UNITS/ML 1ML VIAL IVPUSH PRN ×2 (15:25)
--- NOTE | 2017-08-27 15:25 | EKG ---
Test Reason : Blood Pressure : / mmHG Vent. Rate : 081 BPM Atrial Rate : 081 BPM P-R Int : 170 ms QRS Dur : 068 ms QT Int : 384 ms P-R-T Axes : 053 034 059 degrees QTc Int : 446 ms NORMAL SINUS RHYTHM POSSIBLE LEFT ATRIAL ENLARGEMENT BORDERLINE ECG WHEN COMPARED WITH ECG OF 05-AUG-2017 08:50, NO SIGNIFICANT CHANGE WAS FOUND Confirmed by Jorge Machuca ([id number]) on 08/27/2017 3:25:13 PM Referred By: Confirmed By:Jorge Machuca
[2017-08-27] MEDS ORDERED: HEPARIN - 25,000 UNIT in SODIUM CHLORIDE 495 ML IV SCH (15:30)
[2017-08-27] MEDS ORDERED: HEPARIN IV SCH (16:45)
[2017-08-27] MEDS ORDERED: SODIUM CHLORIDE 0.45% IV SCH (16:45)
--- NOTE | 2017-08-27 19:43 | CON.GU ---
Consult Consult Specialty:: Referred by:: Armando Reason for Consultation:: gross hematuria - History of Present Illness Chief Complaint: gross hematuria History of Present Illness: 82 year old male who had a TURP approx 18 months ago and has been on avodart. He has been doing well but for the last two days has had gross hematuria. He is here with his son. He denies any burning or pain. He is on antiplatelet therapy for peripheral vascular disease. 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) Gastrointestinal: Yes: GERD Renal/: Yes: BPH, Hematuria Musculoskeletal: Yes: Osteoarthritis, Other (s/p left AKA) Endocrine: Yes: Diabetes Mellitus - Past Surgical History Past Surgical History: Yes: Amputation (left AKA), Bypass (RLE) - Alcohol/Substance Use Hx Alcohol Use: No History of Substance Use: reports: None - Smoking History Smoking history: Never smoked Have you smoked in the past 12 months: No Aproximately how many cigarettes per day: 0 If you are a former smoker, when did you quit?: 1983 - Social History Usual Living Arrangement: With Child ADL: Family Assistance History of Recent Travel: No Home Medications - Allergies Allergies/Adverse Reactions: Allergies Allergy/AdvReac Type Severity Reaction Status Date / Time vancomycin Allergy Severe Verified 08/27/17 00:37 - Home Medications Home Medications: Ambulatory Orders Losartan Potassium [Cozaar -] 50 mg PO HS 01/06/16 Metformin HCl 500 mg PO DAILY 01/06/16 Erlotinib HCl [Tarceva] 50 mg PO DAILY 05/22/17 Ezetimibe 10 mg PO DAILY 05/22/17 Sitagliptin Phosphate [Januvia -] 100 mg PO DAILY@0700 #30 tablet 05/26/17 Aspirin [ASA -] 81 mg PO DAILY 08/03/17 Enoxaparin [Lovenox -] 100 mg SQ DAILY disp.syrin 08/09/17 Oxycodone HCl [Roxicodone -] 5 mg PO Q8H PRN 7 Days #21 tablet MDD 3 08/09/17 Acetaminophen [Extra Strength Non-Aspirin] 500 mg PO DAILY PRN 08/27/17 Atenolol [Tenormin -] 100 mg PO DAILY 08/27/17 Dutasteride 0.5 mg PO DAILY 08/27/17 Family Disease History - Family Disease History Family Disease History: Heart Disease: Sister (MA in her 60s; alive, in her 80s) Review of Systems - Review of Systems Genitourinary: reports: Hematuria. denies: Burning, Dysuria, Flank Pain, Frequency, Incontinence, Pain Physical Exam- Vital Signs: Vital Signs Temperature 97.9 F 08/27/17 00:33 Pulse Rate 81 08/27/17 07:55 Respiratory Rate 20 08/27/17 00:33 Blood Pressure 136/54 08/27/17 07:55 O2 Sat by Pulse Oximetry (%) 98 08/27/17 07:55 Gastrointestinal: Yes: Soft Renal/: Yes: Hematuria. No: Bladder Distention, CVA Tenderness - Left, CVA Tenderness - Right, Zee Present Labs: CBC, BMP 08/27/17 02:07 08/27/17 02:07 Problem List - Problems (1) Gross hematuria Assessment/Plan: gross hematuria with a UA suggestive of a UTI. He has a history of BPH with a TURP. Antibiotics. CT scan done, waiting for read. will follow . Code(s): R31.0 - GROSS HEMATURIA
[2017-08-27] MEDS: ASPIRIN 81 MG CHEWABLE TABLETS PO SCH (20:47)
[2017-08-27] MEDS: DUTASTERIDE 0.5 MG CAP (FP) PO SCH (20:47)
[2017-08-27] MEDS: metFORMIN HCL 500 MG TABLET (FP) PO SCH (20:48)
[2017-08-27] MEDS: ATENOLOL 50 MG TABLET (FP) PO SCH (20:48)
[2017-08-27] MEDS: EZETIMIBE 10 MG TABLET (FP) PO SCH (20:48)
[2017-08-27] MEDS ORDERED: LOSARTAN POTASSIUM 25 MG TABLET PO SCH (22:00)
[2017-08-28] MEDS ORDERED: sitaGLIPtin PHOSPHATE 100 MG TABLET (FP) PO SCH (07:00)
[2017-08-28] MEDS ORDERED: CEFTRIAXONE 1 G/50 ML PREMIX 50 ML IVPB SCH (10:00)
[2017-08-28 11:02] LABS: HEMATOCRIT 41.4 % (35.4-49); HEMOGLOBIN 12.7 GM/dL (11.7-16.9); MCH 24.2 pg (25.7-33.7); MCHC 30.8 g/dl (32.0-35.9); MEAN CELL VOLUME 78.5 fl (80-96); PLATELET COUNT 361 K/MM3 (134-434); RBC 5.27 M/mm3 (4.00-5.60); RDW 19.3 % (11.9-15.9); WHITE BLOOD COUNT 13.9 K/mm3 (4.0-10.0)
[2017-08-28 11:21] LABS: ANION GAP 10 (8-16); BLOOD UREA NITROGEN 15 mg/dL (7-18); CALCIUM 8.4 mg/dL (8.5-10.1); CHLORIDE 104 mmol/L (98-107); CO2 23 mmol/L (21-32); CREATININE 0.8 mg/dL (0.7-1.3); GLUCOSE,RANDOM 84 mg/dL (74-106); POTASSIUM 4.6 mmol/L (3.5-5.1); SODIUM 137 mmol/L (136-145)
[2017-08-28] MEDS: ASPIRIN 81 MG CHEWABLE TABLETS PO SCH (11:43)
[2017-08-28] MEDS: EZETIMIBE 10 MG TABLET (FP) PO SCH (11:49)
[2017-08-28] MEDS: DUTASTERIDE 0.5 MG CAP (FP) PO SCH (11:49)
[2017-08-28] MEDS: ATENOLOL 50 MG TABLET (FP) PO SCH (11:49)
--- NOTE | 2017-08-28 13:22 | DS ---
Physical Examination Vital Signs: Vital Signs Temperature 98.2 F 08/27/17 23:12 Pulse Rate 110 H 08/27/17 23:12 Respiratory Rate 20 08/27/17 23:12 Blood Pressure 147/84 08/27/17 23:12 O2 Sat by Pulse Oximetry (%) 98 08/27/17 07:55 Findings/Remarks: Pt w/o SOB, CP, palp, abd pain, N, V. Pt states that urine is clearing up, color is yellowish now. Pt's son is at bedside; I told him about Dr. Jennings recommendation ( to DC Mr. Palmer home today); he agrees.. Constitutional: Yes: No Distress, Calm Cardiovascular: Yes: Regular Rate and Rhythm, S1, S2 Respiratory: Yes: Regular, CTA Bilaterally. No: Rales Gastrointestinal: Yes: Normal Bowel Sounds, Soft. No: Tenderness Edema: No Neurological: Yes: Alert, Oriented Labs: CBC, BMP 08/28/17 10:37 08/28/17 10:37 Discharge Summary Reason For Visit: HAMATURIA; ABDOMINAL PAIN; CYSTITIS Current Active Problems Abdominal pain (Acute) Gross hematuria (Acute) Hemorrhagic cystitis (Acute) Rib pain on right side (Acute) Procedures: Principal: Abd/ Pelvis CT scan Hospital Course: Pt came to ER with gross heamturia, noticed to have UTI, started on ABTX; pt was seen by (Dr. Jennings), had Abd/ Pelvis CT scan ( reviewed by Dr. Jennings) cleared for DC with office appointment in AM. Pt to restart Lovenox this evening and to continue every night. Condition: Fair - Instructions Diet, Activity, Other Instructions: Resume Diet. Referrals: Brent Barrett MD [Primary Care Provider] - Naveen Valdez MD [Staff Physician] - ([place]- call for apointment) Tacho Rendon MD [Staff Physician] - (as scheduled this week) Brent Roberts MD [Staff Physician] - (in 1-2 weeks) Disposition: HOME - Home Medications Comprehensive Discharge Medication List: Ambulatory Orders This list might NOT be accurate Losartan Potassium [Cozaar -] 50 mg PO HS 01/06/16 Metformin HCl 500 mg PO DAILY 01/06/16 Erlotinib HCl [Tarceva] 50 mg PO DAILY 05/22/17 Ezetimibe 10 mg PO DAILY 05/22/17 Sitagliptin Phosphate [Januvia -] 100 mg PO DAILY@0700 #30 tablet 05/26/17 Aspirin [ASA -] 81 mg PO DAILY 08/03/17 Enoxaparin [Lovenox -] 100 mg SQ DAILY disp.syrin 08/09/17 Oxycodone HCl [Roxicodone -] 5 mg PO Q8H PRN 7 Days #21 tablet MDD 3 08/09/17 Acetaminophen [Extra Strength Non-Aspirin] 500 mg PO DAILY PRN 08/27/17 Atenolol [Tenormin -] 100 mg PO DAILY 08/27/17 Dutasteride 0.5 mg PO DAILY 08/27/17
--- NOTE | 2017-08-28 13:35 | PN ---
Progress Note (short form) - Note Progress Note: urine clearing overnight. CT scan results noted. discharge home with antibiotics and short term follow up with Dr. Valdez Problem List - Problems (1) Gross hematuria Code(s): R31.0 - GROSS HEMATURIA
[2017-08-28] MEDS: metFORMIN HCL 500 MG TABLET (FP) PO SCH (14:01)
[2017-08-28 14:05] VITALS: BP 121/75; PULSE 88; TEMP 97.7
== END 2017-08-28 14:30 | disposition home or self-care (01) | DRG 690 ==
LOC: JER 00:17 → JERBED 07:54
PROVIDERS: ADMIT Specialist; ATTEND Specialist
DX: N39.0 Urinary tract infection, site not specified (principal); I48.0 Paroxysmal atrial fibrillation; E11.9 Type 2 diabetes mellitus without complications; E11.51 Type 2 diabetes mellitus with diabetic peripheral angiopathy without gangrene; K21.9 Gastro-esophageal reflux disease without esophagitis; N40.0 Benign prostatic hyperplasia without lower urinary tract symptoms; E78.00 Pure hypercholesterolemia, unspecified; M19.90 Unspecified osteoarthritis, unspecified site; R31.0 Gross hematuria; R07.81 Pleurodynia; N30.91 Cystitis, unspecified with hematuria; Z89.612 Acquired absence of left leg above knee; Z85.118 Personal history of other malignant neoplasm of bronchus and lung
CPT/HCPCS: 36415; 71045-TC; 74178-TC; 80048; 80053; 81003; 81015; 83690; 85025; 85027; 85610; 86850; 86900; 86901; 87086; 87186; 93005; 93010; 99285-25; J1644

== ENCOUNTER 2017-09-07 13:01 | Inpatient (IN) | payer OTHER ==
--- NOTE | 2017-09-07 14:19 | PDOC ---
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 s/p lobectomy, who presents with 2 days of non bloody, non biliary emesis, with asx. focal sharp, LLQ abdominal pain, decreased appetite, increased fatigue, and constipation ( last BM 2 days ago). Continues to have hematuria w/out dysuria following d/c for recent uncomplicated UTI admission ( -08/28/2017). On Cefpodoxime. Last episode of hematuria was yesterday evening at [address] red blood[address] AP ( 08/27). This AM urine clear. Unremarkable. Denies F/C, CP, cough, wheezing, palpitations, dysuria, BPR, SOB, lightheadedness, weakness, sensory changes. PMD Brent Roberts. Past History - Past Medical History Allergies/Adverse Reactions: Allergies Allergy/AdvReac Type Severity Reaction Status Date / Time vancomycin Allergy Severe Verified 09/07/17 13:26 Home Medications: Ambulatory Orders Losartan Potassium [Cozaar -] 50 mg PO HS 01/06/16 Metformin HCl 500 mg PO DAILY 01/06/16 Erlotinib HCl [Tarceva] 50 mg PO DAILY 05/22/17 Ezetimibe 10 mg PO DAILY 05/22/17 Sitagliptin Phosphate [Januvia -] 100 mg PO DAILY@0700 #30 tablet 05/26/17 Aspirin [ASA -] 81 mg PO DAILY 08/03/17 Oxycodone HCl [Roxicodone -] 5 mg PO Q8H PRN 7 Days #21 tablet MDD 3 08/09/17 Acetaminophen [Extra Strength Non-Aspirin] 500 mg PO DAILY PRN 08/27/17 Atenolol [Tenormin -] 100 mg PO DAILY 08/27/17 Dutasteride 0.5 mg PO DAILY 08/27/17 Acetaminophen [Tylenol .Extra-Strength -] 500 mg PO DAILY PRN tablet 08/28/17 Cefpodoxime Proxetil [Vantin -] 200 mg PO Q12H #20 tablet 08/28/17 Enoxaparin [Lovenox -] 100 mg SQ DAILY #0 disp.syrin 08/28/17 Ondansetron HCl [Zofran] 4 mg PO BID PRN #20 tablet 08/28/17 Pantoprazole Sodium [Protonix] 40 mg PO DAILY #30 tablet. 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 No fever or chills. No weakness. HEAD, EYES, EARS, NOSE AND THROAT: No change in vision. No ear pain or discharge. No sore throat.- CARDIOVASCULAR: No chest pain or shortness of breath RESPIRATORY: No cough, wheezing, or hemoptysis. GASTROINTESTINAL: + nausea, and vomiting. diarrhea or constipation. GENITOURINARY: No dysuria, frequency, or change in urination. MUSCULOSKELETAL: No joint or muscle swelling or pain. No neck or back pain. SKIN: No rash NEUROLOGIC: No headache, vertigo, loss of consciousness, or change in strength/ sensation. ENDOCRINE: No increased thirst. No abnormal weight change HEMATOLOGIC/LYMPHATIC: No anemia, easy bleeding, or history of blood clots. ALLERGIC/IMMUNOLOGIC: No hives or skin allergy. *Physical Exam - Vital Signs Last Vital Signs Temp Pulse Resp BP Pulse Ox 97.4 F L 81 17 157/93 99 09/07/17 13:26 09/07/17 13:26 09/07/17 13:26 09/07/17 13:26 09/07/17 13:26 - Physical Exam Comments: 09/07/17 14:24 GENERAL: Awake, alert, and fully oriented, in no acute distress HEAD: No signs of trauma, normocephalic, atraumatic EYES: PERRLA, EOMI, sclera anicteric, conjunctiva clear ENT: Dry oral mucosa. Hearing grossly normal, nares patent, oropharynx clear without exudates. NECK: Normal ROM, supple, no lymphadenopathy, JVD, or masses LUNGS: No distress, speaks full sentences, clear to auscultation bilaterally HEART: Regular rate and rhythm, normal S1 and S2, no murmurs, rubs or gallops, peripheral pulses normal and equal bilaterally. ABDOMEN: + RLQ>LLQ ecchymosis at lovenox injection site. RLQ>LLQ ttp.normoactive bowel sounds. No guarding, no rebound. No masses. Non rigid. No surapubic or CVA ttp. EXTREMITIES : Normal inspection, Normal range of motion, no edema. No clubbing or cyanosis. SKIN: Warm, Dry, normal turgor, no rashes or lesions noted. ED Treatment Course - LABORATORY CBC & Chemistry Diagram: 09/07/17 14:50 09/07/17 17:01 - ADDITIONAL ORDERS Additional order review: 09/07/17 18:27 Fern Padron Name: BRINDA MARTINEZ DEPARTMENT OF RADIOLOGY Phys: Caleb Mcgowan RESIDENT : 1935 Age: 82 Sex: M [facility] Acct: [id number] Loc: [address] Exam Date: 09/07/17 Status: JOSE Farias [id number] Unit Number: [id number] EXAM#: TYPE/EXAM: RESULT: [id number] CT/ABDOMEN PELVIS CT W/O CONTR EXAM: CT abdomen and pelvis without contrast. INDICATION: Abdominal pain. TECHNIQUE: CT of the abdomen and pelvis without oral contrast and without intravenous contrast. COMPARISON: 08/27/2017 and 02/18/2015 CT abdomen/pelvis. FINDINGS: Evaluation of the solid viscera, vessels and bowel is limited without contrast. The visualized right lateral soft tissue thickening with small volume of fluid and pleural- parenchymal nodularity along the right lung base is similar to the prior exam, allowing for differences in technique. The liver is normal in size and contour. There is cholelithiasis. No CT evidence of acute cholecystitis. The common bile duct is not dilated. The unenhanced pancreas is unremarkable. Normal size spleen. There is thickening of bilateral adrenal glands, left more than right, similar to the prior exam, most likely attributed to adrenal hyperplasia. A 0.8 x 0.7 cm nodule in the lateral limb of the left adrenal gland is unchanged in size dating back to at least 02/18/2015 CT, presumably an adenoma. The kidneys are normal in size. There is no hydroureteronephrosis. There is a 3 mm nonobstructing calculus in a lower pole calyx of the right kidney. No left renal calculi. No ureteral calculi. Normal caliber abdominal aorta with moderate calcific atherosclerosis, including the branch vessels. There is a right common femoral artery stent. Confluent soft tissue surrounding the right common femoral artery and vein is unchanged from prior, presumably reflecting postsurgical change. There are no pathologically enlarged lymph nodes within the abdomen or pelvis utilizing CT size criteria. There is a small hiatal hernia. There are no dilated loops of large or small bowel to suggest obstruction. There is a normal-appearing appendix. There is no evidence of diverticulitis. The rectal and sigmoid colon holloway are circumferentially prominent, however, some of this may be attributed to underdistention. There is no free intraperitoneal air or ascites. Again redemonstrated is marked enlargement of the prostate gland, measuring approximately 7.0 x 7.0 cm in AP and transverse dimensions, indenting the base the urinary bladder. There is no evidence of urinary bladder calculus. Circumferential mildly prominent urinary bladder wall is noted , similar to prior. There is no acute fracture in the visualized osseous structures. Nonspecific lucent bone lesions within the lateral aspect of the subcapital left femoral neck and within the left anterior , inferior iliac spine (axial images 120-121 of series 3), are similar in size dating back to 2014 CT. There are degenerative changes in the thoracolumbar spine, hips and sacroiliac joints. There is moderate canal stenosis at L3-L4, and moderate narrowing of bilateral L4-L5 neural foramina. There is skin thickening overlying the right lower quadrant anterior abdominal wall with subcutaneous gas and multiple soft tissue nodules within the subcutaneous fat of the right and left lower abdominal wall, presumably secondary to medication administration. IMPRESSION: 1. Circumferentially prominent rectosigmoid wall may be secondary to underdistention, however, a mild infectious or inflammatory proctocolitis is not excluded. Please correlate clinically. 2. A 3 mm nonobstructing right renal calculus. No hydroureteronephrosis. 3. No evidence of bowel obstruction or diverticulitis. Normal appendix. 4. Partially visualized soft tissue thickening of the right pleural with small volume of fluid and pleural-parenchymal soft tissue nodularity along the right lung base appear similar to 08/27/2017 CT. 5. [address]ole[address]iasis. No CT evidence of acute cholecystitis. 6. Marked enlargement of the prostate gland indenting the base the urinary bladder. Please correlate with PSA and physical exam. Circumferentially prominent urinary bladder wall may be secondary to chronic outlet obstruction. 7. Nonspecific lucent bone lesions in the proximal left femur and left iliac bone as above, are similar in size dating back to 02/18/2015 CT. Reported By: Taiwo Marrero DO 09/07/171716 Caleb Mcgowan Technologist: Dk Roland Transcribed Date/Time: 09/07/171716 Pile Operator: Taiwo Marrero DO Printed Date/Time: By: Medical Decision Making - Medical Decision Making 09/07/17 15:06 82 yo M with h/o NIDDM, HTN, HLD, CAD, PVD ( s/p RLE graft bypass 08/10/17) paroxysmal A-fib ( on lovenox sub q Q12 H) , lung ca. s/p lobectomy, who presents with 2 days of non bloody, non biliary emesis, with asx. focal sharp, LLQ abdominal pain, decreased appetite, increased fatigue, and constipation. Continues to have hematuria w/out dysuria following d/c for recent uncomplicated UTI admission ( 08/27-07/25). CT AP ( 08/27) Unremarkable. Denies F/ C, CP, cough, wheezing, palpitations, dysuria, BPR, SOB, lightheadedness, weakness, sensory changes. PMD Brent Roberts. Physical exam reveals distended abdomen, RLQ>LLQ ttp , and lower abdominal ecchymosis at lovenox injection sites. Hemodynamically stable. Will consider resistant UTI vs. pyelonephritis. Possible medication side effect vs. chronic constipation. DDx: cystitis, constipation, pyelonephritis, nephrolithiasis, retroperitoneal hematoma, SBO ED Course: CBC, CMP, UA, Lipase, Urine and Blood Cx. EKG, CXR NS [address] AP Zosyn 4.5 mg 09/07/17 17:15 WBC: 23.3 09/07/17 17:16 UA: Unremarkable Lactic acid: 2.4 09/07/17 17:23 CXR: No acute pathology. CT AP: 1. Circumferentially prominent rectosigmoid wall may be secondary to underdistention, however, a mild infectious or inflammatory proctocolitis is not excluded. Please correlate clinically. 2. A 3 mm nonobstructing right renal calculus. No hydroureteronephrosis. 3. No evidence of bowel obstruction or diverticulitis. Normal appendix. 4. Partially visualized soft tissue thickening of the right pleural with small volume of fluid and pleural-parenchymal soft tissue nodularity along the right lung base appear similar to 08/27/2017 CT. 5. [address]. No CT evidence of acute cholecystitis. 6. Marked enlargement of the prostate gland indenting the base the urinary bladder. Please correlate with PSA and physical exam. Circumferentially prominent urinary bladder wall may be secondary to chronic outlet obstruction. 7. Nonspecific lucent bone lesions in the proximal left femur and left iliac bone as above, are similar in size dating back to 02/18/2015 CT. 09/07/17 18:[address] Brent Roberts answering service. 09/07/17 18:[address] Roberts. Will admit med/surg. CMP pending. 09/07/17 18:36 Na+ 126 *DC/Admit/Observation/Transfer - Referrals Referrals: Brent Roberts MD [Primary Care Provider] - - Patient Instructions - Post Discharge Activity
--- NOTE | 2017-09-07 14:23 | PDOC ---
Attending Attestation - HPI HPI: 09/07/17 15:34 The patient is an 82 year old male with a significant PMH of lung CA (s/p lobectomy) non-insulin dependent diabetes, HTN, hyperlipidemia, CAD, PVD, and paroxysomal AFIB who presents to the emergency department with non-bloody, non- bilious vomiting and LLQ abdominal pain beginning approximately 2 days ago. She notes associated decreased appetite, constipation, and increased fatigue over the past 2 days. The patient also reports hematuria without dysuria recently following workup for a UTI. Allergies: Vancomycin PCP: Dr. Brent Roberts <Cody Brady - Last Filed: 09/07/17 15:34> - Resident Resident Name: Caleb Mcgowan - ED Attending Attestation I have performed the following: I have examined & evaluated the patient, The case was reviewed & discussed with the resident, I agree w/resident's findings & plan, Exceptions are as noted - Physicial Exam PE: GENERAL: Awake, alert, and fully oriented, in no acute distress. Appears ill but nontoxic. HEAD: No signs of trauma EYES: PERRLA, EOMI, sclera anicteric, conjunctiva clear ENT: Auricles normal inspection, hearing grossly normal, nares patent, oropharynx clear without exudates. Dry mucosa NECK: Normal ROM, supple, no lymphadenopathy, JVD, or masses LUNGS: Breath sounds equal, clear to auscultation bilaterally. No wheezes, and no crackles HEART: Regular rate and rhythm, normal S1 and S2, no murmurs, rubs or gallops ABDOMEN: Soft, +diffuse abd tenderness, normoactive bowel sounds. No guarding, no rebound. No masses. No CVAT. +Lower abd ecchymoses (c/w history of lovenox injections) EXTREMITIES: Normal range of motion, no edema. No clubbing or cyanosis. No cords, erythema, or tenderness NEUROLOGICAL: Cranial nerves II through XII grossly intact. Normal speech, normal gait. SKIN: Warm, Dry, normal turgor, no rashes or lesions noted. - Medical Decision Making Pt is s/p recent treatment of UTI, currently on cefpodoxime, presenting with hematuria, abd pain, vomiting. Concern for resistant organism vs pyelonephritis. Attempted to contact micro lab to discuss whether cefpodoxime was tested in the sensitivities, however, unable to reach anyone at this time. Pt given zosyn in ED, as he was noted to have significant leukocytosis. CT was obtained, noted to have poss proctocolitis. Plan for admission. <Yodit Bonilla - Last Filed: 09/10/17 08:22>
[2017-09-07] MEDS ORDERED: SODIUM CHLORIDE 1,000 ML IV STA ×3 (14:40→16:56)
[2017-09-07 15:00] LABS: HEMATOCRIT 42.2 % (35.4-49); MCHC 30.9 g/dl (32.0-35.9); MEAN CELL VOLUME 77.8 fl (80-96); MEAN PLT VOLUME 9.3 fl (7.5-11.1); PLATELET COUNT 428 K/MM3 (134-434); RBC 5.42 M/mm3 (4.00-5.60); WHITE BLOOD COUNT 23.3 K/mm3 (4.0-10.0)
[2017-09-07] MEDS ORDERED: PIPERACILLIN/TAZOB 4.5 GM 4.5 GM/100 ML BAG IVPB ONE (15:24)
[2017-09-07] MEDS ORDERED: PIPERACILLIN/TAZOB 3.375 GM 50 ML IVPB ONE (15:38)
[2017-09-07] MEDS ORDERED: PIPERACILLIN/TAZOB 3.375 GM 3.375 GM/50 ML BAG IVPB ONE (15:38)
[2017-09-07 15:44] LABS: INR 1.19 (0.82-1.09); PROTHROMBIN TIME (PATIENT) 13.4 SEC (9.98-11.88)
[2017-09-07 16:16] LABS: URINE APPEARANCE CLEAR; URINE BILIRUBIN NEGATIVE (NEGATIVE); URINE BLOOD NEGATIVE (NEGATIVE); URINE COLOR LTYELLOW; URINE GLUCOSE (UA) 2+ (NEGATIVE); URINE KETONE NEGATIVE (NEGATIVE); URINE LEUK ESTERASE NEGATIVE (NEGATIVE); URINE NITRITE NEGATIVE (NEGATIVE); URINE UROBILINOGEN NEGATIVE mg/dL (0.2-1.0)
[2017-09-07 16:21] LABS: URINE PROTEIN 2+ (NEGATIVE)
[2017-09-07 16:31] LABS: EPI CELLS RARE /HPF (FEW); URINE MUCUS RARE
[2017-09-07 17:33] LABS: ALBUMIN 2.5 g/dl (3.4-5.0); ALK PHOS 78 U/L (45-117); ANION GAP 9 (8-16); BILIRUBIN,TOTAL 0.5 mg/dL (0.2-1.0); BLOOD UREA NITROGEN 13 mg/dL (7-18); CALCIUM 7.6 mg/dL (8.5-10.1); CHLORIDE 94 mmol/L (98-107); CO2 23 mmol/L (21-32); CREATININE 0.7 mg/dL (0.7-1.3); GLUCOSE,RANDOM 129 mg/dL (74-106); LIPASE 102 U/L (73-393); POTASSIUM 4.7 mmol/L (3.5-5.1); SGOT/AST 15 U/L (15-37); SGPT/ALT 18 U/L (12-78); SODIUM 126 mmol/L (136-145); TOT PROT 6.9 g/dl (6.4-8.2)
[2017-09-07] MEDS ORDERED: oxyCODONE HCL 5 MG TABLET PO PRN (19:38)
[2017-09-07] MEDS ORDERED: ONDANSETRON 4 MG TABLET PO PRN (19:38)
[2017-09-07] MEDS ORDERED: ACETAMINOPHEN 500 MG TABLET (FP) PO PRN (19:38)
[2017-09-07] MEDS: INSULIN SLIDING SCALE (NOVOLOG) 1 VIAL SQ SCH ×2 (23:17→23:57)
[2017-09-07] MEDS: LOSARTAN POTASSIUM 50 MG TABLET (FP) PO SCH (23:40)
[2017-09-07] MEDS: ENOXAPARIN NA (PORCINE) 100 MG/1 ML DISP.SYRIN SQ SCH (23:40)
[2017-09-08] MEDS ORDERED: PIPERACILLIN/TAZOB 3.375 GM/50 ML PRE-DOCKED IVPB ONE (00:01)
[2017-09-08 05:28] VITALS: BMI 22.3
[2017-09-08] MEDS: INSULIN SLIDING SCALE (NOVOLOG) 1 VIAL SQ SCH ×5 (05:50→21:45)
[2017-09-08 07:49] LABS: CHLORIDE 91 mmol/L (98-107); POTASSIUM 4.6 mmol/L (3.5-5.1); SODIUM 125 mmol/L (136-145)
[2017-09-08 07:52] LABS: HEMATOCRIT 42.7 % (35.4-49); HEMOGLOBIN 13.3 GM/dL (11.7-16.9); MCH 24.1 pg (25.7-33.7); MCHC 31.2 g/dl (32.0-35.9); MEAN CELL VOLUME 77.2 fl (80-96); PLATELET COUNT 397 K/MM3 (134-434); RBC 5.53 M/mm3 (4.00-5.60); RDW 18.9 % (11.9-15.9); WHITE BLOOD COUNT 20.5 K/mm3 (4.0-10.0)
[2017-09-08 08:00] LABS: ALBUMIN 2.5 g/dl (3.4-5.0); ALK PHOS 78 U/L (45-117); ANION GAP 10 (8-16); BILIRUBIN,TOTAL 0.7 mg/dL (0.2-1.0); BLOOD UREA NITROGEN 11 mg/dL (7-18); CALCIUM 8.9 mg/dL (8.5-10.1); CO2 24 mmol/L (21-32); CREATININE 0.6 mg/dL (0.7-1.3); GLUCOSE,RANDOM 133 mg/dL (74-106); SGOT/AST 12 U/L (15-37); SGPT/ALT 16 U/L (12-78); TOT PROT 7.2 g/dl (6.4-8.2)
--- NOTE | 2017-09-08 09:37 | HP ---
Admitting History and Physical - Primary Care Physician PCP: Brent Roberts - Admission Chief Complaint: Abd pain History of Present Illness: Pt was brought into ER by his son for nausea, left side abd pain, poor PO intake for 2-3 days. Pt w/o fever, diarrhea, blood in stool. Pt also reported blood in urine to ER staff; per pt's nurse no blood din the urine was noticed. History Source: Patient, Family Member (pt's son, Garrick; per pt's son Nicola was DC'ed by Dr. 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) Gastrointestinal: Yes: GERD Renal/: Yes: BPH Heme/Onc: Yes: Cancer (Lung CA), Myeloproliferative Synd Musculoskeletal: Yes: Osteoarthritis, Other (s/p left AKA) Endocrine: Yes: Diabetes Mellitus - Past Surgical History Past Surgical History: Yes: Amputation (left AKA), Bypass (RLE) - Advance Directives Advance Directives: Yes: Health Care Proxy - Smoking History Smoking history: Former smoker Have you smoked in the past 12 months: No Aproximately how many cigarettes per day: 0 If you are a former smoker, when did you quit?: 30 years ago - Alcohol/Substance Use Hx Alcohol Use: No History of Substance Use: reports: None - Social History ADL: Family Assistance History of Recent Travel: No Home Medications - Allergies Allergies/Adverse Reactions: Allergies Allergy/AdvReac Type Severity Reaction Status Date / Time vancomycin Allergy Severe Verified 09/07/17 13:26 - Home Medications Home Medications: Ambulatory Orders Losartan Potassium [Cozaar -] 50 mg PO HS 01/06/16 Metformin HCl 500 mg PO DAILY 01/06/16 Ezetimibe 10 mg PO DAILY 05/22/17 Sitagliptin Phosphate [Januvia -] 100 mg PO DAILY@0700 #30 tablet 05/26/17 Aspirin [ASA -] 81 mg PO DAILY 08/03/17 Oxycodone HCl [Roxicodone -] 5 mg PO Q8H PRN 7 Days #21 tablet MDD 3 08/09/17 Acetaminophen [Extra Strength Non-Aspirin] 500 mg PO DAILY PRN 08/27/17 Atenolol [Tenormin -] 100 mg PO DAILY 08/27/17 Dutasteride 0.5 mg PO DAILY 08/27/17 Cefpodoxime Proxetil [Vantin -] 200 mg PO Q12H #20 tablet 08/28/17 Enoxaparin [Lovenox -] 100 mg SQ DAILY #0 disp.syrin 08/28/17 Ondansetron HCl [Zofran] 4 mg PO BID PRN #20 tablet 08/28/17 Pantoprazole Sodium [Protonix] 40 mg PO DAILY #30 tablet.dr 08/28/17 Metoclopramide HCl [Reglan -] 5 mg PO TIDAC PRN #30 tablet MDD 3 09/10/17 Metronidazole 500 mg PO Q8H #30 tablet MDD 3 09/10/17 Family Disease History - Family Disease History Family Disease History: Heart Disease: Sister (SD in her 60s; alive, in her 80s) Review of Systems - Review of Systems Constitutional: denies: Chills, Fever, Loss of Appetite Eyes: denies: Blurred Vision, Double Vision HENT: denies: Ear Discharge, Ear Pain, Nasal Congestion, Throat Pain Neck: denies: Pain on Movement, Stiffness Cardiovascular: denies: Chest Pain, Edema, Palpitations Respiratory: denies: Cough, SOB Gastrointestinal: denies: Abdominal Pain (now), Constipation Genitourinary: denies: Burning, Dysuria Musculoskeletal: denies: Back Pain, Extremity Pain Integumentary: denies: Eczema, Rash Neurological: denies: Change in LOC, Change in Speech, Dizziness Endocrine: denies: Excessive Sweating, Intolerance to Cold Psychiatric: denies: Altered Sleep Pattern, Anxiety Physical Examination Vital Signs: Vital Signs Temperature 98.1 F 09/08/17 06:00 Pulse Rate 83 09/08/17 06:00 Respiratory Rate 20 09/08/17 06:00 Blood Pressure 153/73 09/08/17 06:00 O2 Sat by Pulse Oximetry (%) 99 09/07/17 20:30 Constitutional: Yes: No Distress, Calm Eyes: Yes: Conjunctiva Clear, EOM Intact HENT: Yes: Normocephalic. No: Rhinnorhea, Thrush Neck: Yes: Trachea Midline. No: Lymphadenopathy Cardiovascular: Yes: Regular Rate and Rhythm, S1, S2 Respiratory: Yes: Regular, CTA Bilaterally. No: Rales Gastrointestinal: Yes: Normal Bowel Sounds, Soft, Tenderness, Epigastrium. No: Palpable Mass, Tenderness, Tenderness, Rebound ...Rectal Exam: Yes: Deferred Musculoskeletal: No: Back Pain, Joint Swelling Edema: No Neurological: Yes: Alert, Oriented, Other (sensory examination is symmetric) Psychiatric: Yes: Alert, Oriented Labs: CBC, BMP 09/08/17 06:15 09/08/17 06:15 Imaging - Results Chest X-ray: Report Reviewed Cat Scan: Report Reviewed Problem List - Problems (1) Proctocolitis Code(s): K52.9 - NONINFECTIVE GASTROENTERITIS AND COLITIS, UNSPECIFIED (2) Hemorrhagic cystitis Code(s): N30.91 - CYSTITIS, UNSPECIFIED WITH HEMATURIA (3) Arterial occlusion, lower extremity Code(s): I70.209 - UNSP ATHSCL WILTON ARTERIES OF EXTREMITIES, UNSP EXTREMITY (4) PAD (peripheral artery disease) Code(s): I73.9 - PERIPHERAL VASCULAR DISEASE, UNSPECIFIED (5) Atrial fibrillation Code(s): I48.91 - UNSPECIFIED ATRIAL FIBRILLATION Qualifiers: Atrial fibrillation type: unspecified Qualified Code(s): I48.91 - Unspecified atrial fibrillation (6) BPH (benign prostatic hypertrophy) Code(s): N40.0 - BENIGN PROSTATIC HYPERPLASIA WITHOUT LOWER URINRY TRACT SYMP (7) Diabetes mellitus Code(s): E11.9 - TYPE 2 DIABETES MELLITUS WITHOUT COMPLICATIONS Qualifiers: Diabetes mellitus type: type 2 Diabetes mellitus complication detail: with other circulatory complications (8) GERD (gastroesophageal reflux disease) Code(s): K21.9 - GASTRO-ESOPHAGEAL REFLUX DISEASE WITHOUT ESOPHAGITIS Qualifiers: Esophagitis presence: with esophagitis Qualified Code(s): K21.0 - Gastro- esophageal reflux disease with esophagitis (9) Lung cancer Code(s): C34.90 - MALIGNANT NEOPLASM OF UNSP PART OF UNSP BRONCHUS OR LUNG Assessment/Plan Abtx GI consult Liquid diet untill seen by GI AM labs. Continue Lovenox- failed Coumadin. Case was d/w pt's nurse.
[2017-09-08] MEDS ORDERED: ERLOTINIB HCL PO SCH (10:00)
[2017-09-08] MEDS: EZETIMIBE 10 MG TABLET (FP) PO SCH (10:20)
[2017-09-08] MEDS: ASPIRIN 81 MG CHEWABLE TABLETS PO SCH (10:20)
[2017-09-08] MEDS: DUTASTERIDE 0.5 MG CAP (FP) PO SCH (10:20)
[2017-09-08] MEDS: PANTOPRAZOLE 40 MG TABLET (FP) PO SCH (10:20)
[2017-09-08] MEDS ORDERED: PT OWN MED DRAWER 7, Y5N ONE ×2 (10:49→20:38)
--- NOTE | 2017-09-08 11:01 | EKG ---
Test Reason : Blood Pressure : / mmHG Vent. Rate : 078 BPM Atrial Rate : 078 BPM P-R Int : 160 ms QRS Dur : 072 ms QT Int : 414 ms P-R-T Axes : 036 -05 019 degrees QTc Int : 471 ms NORMAL SINUS RHYTHM MINIMAL VOLTAGE CRITERIA FOR LVH, MAY BE NORMAL VARIANT INFERIOR INFARCT , AGE UNDETERMINED CANNOT RULE OUT ANTERIOR INFARCT , AGE UNDETERMINED ABNORMAL ECG WHEN COMPARED WITH ECG OF 27-AUG-2017 01:57, INFERIOR INFARCT IS NOW PRESENT Confirmed by ZITA BYRNE MD ([id number]) on 09/08/2017 11:00:52 AM Referred By: Confirmed By:ZITA BYRNE MD
[2017-09-08] MEDS: ATENOLOL 50 MG TABLET (FP) PO SCH (12:24)
--- NOTE | 2017-09-08 12:44 | PN ---
Progress Note (short form) - Note Progress Note: GI: Dr. Franklin for Dr. Christensen Called to evaluate patient. Patient states that he has been followed by Dr. Barnes who performed colonoscopy within the last 5 years. Nurse was present during this conversation. Advised calling Dr. Barnse's service for further evaluation.
--- NOTE | 2017-09-08 18:59 | CON.GI ---
Consult Consult Specialty:: Gi Referred by:: Dr Brent Roberts - History of Present Illness History of Present Illness: 82 male s/p colonoscopy (normal,s/p EGD 2015--erosive gastritis) was asked to be seen because of abdominal pain. He has chronic epigastric pain, heartburns and abdominal bloating. Ctscan revealed sigmoid thickening. 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) Gastrointestinal: Yes: GERD Renal/: Yes: BPH Musculoskeletal: Yes: Osteoarthritis, Other (s/p left AKA) Endocrine: Yes: Diabetes Mellitus - Past Surgical History Past Surgical History: Yes: Amputation (left AKA), Bypass (RLE) - Alcohol/Substance Use Hx Alcohol Use: No History of Substance Use: reports: None - Smoking History Smoking history: Former smoker Have you smoked in the past 12 months: No Aproximately how many cigarettes per day: 0 If you are a former smoker, when did you quit?: 30 years ago - Social History Usual Living Arrangement: With Child ADL: Family Assistance History of Recent Travel: No Home Medications - Allergies Allergies/Adverse Reactions: Allergies Allergy/AdvReac Type Severity Reaction Status Date / Time vancomycin Allergy Severe Verified 09/07/17 13:26 - Home Medications Home Medications: Ambulatory Orders Losartan Potassium [Cozaar -] 50 mg PO HS 01/06/16 Metformin HCl 500 mg PO DAILY 01/06/16 Erlotinib HCl [Tarceva] 50 mg PO DAILY 05/22/17 Ezetimibe 10 mg PO DAILY 05/22/17 Sitagliptin Phosphate [Januvia -] 100 mg PO DAILY@0700 #30 tablet 05/26/17 Aspirin [ASA -] 81 mg PO DAILY 08/03/17 Oxycodone HCl [Roxicodone -] 5 mg PO Q8H PRN 7 Days #21 tablet MDD 3 08/09/17 Acetaminophen [Extra Strength Non-Aspirin] 500 mg PO DAILY PRN 08/27/17 Atenolol [Tenormin -] 100 mg PO DAILY 08/27/17 Dutasteride 0.5 mg PO DAILY 08/27/17 Acetaminophen [Tylenol .Extra-Strength -] 500 mg PO DAILY PRN tablet 08/28/17 Cefpodoxime Proxetil [Vantin -] 200 mg PO Q12H #20 tablet 08/28/17 Enoxaparin [Lovenox -] 100 mg SQ DAILY #0 disp.syrin 08/28/17 Ondansetron HCl [Zofran] 4 mg PO BID PRN #20 tablet 08/28/17 Pantoprazole Sodium [Protonix] 40 mg PO DAILY #30 tablet. 08/28/17 Family Disease History - Family Disease History Family Disease History: Heart Disease: Sister ([place] in her 60s; alive, in her 80s) Physical Exam-GI Vital Signs: Vital Signs Temperature 98 F 09/08/17 17:06 Pulse Rate 79 09/08/17 17:06 Respiratory Rate 20 09/08/17 17:06 Blood Pressure 148/73 09/08/17 17:06 O2 Sat by Pulse Oximetry (%) 97 09/08/17 09:00 Constitutional: Yes: Well Nourished Eyes: Yes: Conjunctiva Clear HENT: Yes: Atraumatic Neck: Yes: Supple Cardiovascular: Yes: Regular Rate and Rhythm Respiratory: Yes: CTA Bilaterally ...Palpate: Yes: Soft, Tenderness, Epigastium. No: Firm/Rigid, Guarding, Hepatomegaly, Mass, Pulsatile Mass, Splenomegaly Labs: CBC, BMP 09/08/17 06:15 09/08/17 06:15 INR, PTT INR 1.19 (0.82-1.09) H 09/07/17 14:50 Problem List - Problems (1) GERD (gastroesophageal reflux disease) Assessment/Plan: R> Protonix 40mg daily Code(s): K21.9 - GASTRO-ESOPHAGEAL REFLUX DISEASE WITHOUT ESOPHAGITIS (2) Abdominal pain Assessment/Plan: r/o diverticulitis(no llq pain) and IBS R>flagyl 250mg tid Code(s): R10.9 - UNSPECIFIED ABDOMINAL PAIN Qualifiers: Abdominal location: unspecified location Qualified Code(s): R10.9 - Unspecified abdominal pain
[2017-09-08] MEDS ORDERED: ONDANSETRON 4 MG/2 ML VIAL IVPB SCH (19:18)
[2017-09-08] MEDS: METOCLOPRAMIDE HCL INJECTION 10 MG/2 ML VIAL IVPB SCH (21:35)
[2017-09-08] MEDS: ENOXAPARIN NA (PORCINE) 100 MG/1 ML DISP.SYRIN SQ SCH (21:35)
[2017-09-08] MEDS: LOSARTAN POTASSIUM 50 MG TABLET (FP) PO SCH (21:46)
[2017-09-08] MEDS: ONDANSETRON 4 MG/2 ML VIAL IVPB SCH (22:18)
[2017-09-09] MEDS: METOCLOPRAMIDE HCL INJECTION 10 MG/2 ML VIAL IVPB SCH ×2 (02:05→09:36)
[2017-09-09] MEDS: INSULIN SLIDING SCALE (NOVOLOG) 1 VIAL SQ SCH ×6 (06:26→20:30)
[2017-09-09] MEDS: ONDANSETRON 4 MG/2 ML VIAL IVPB SCH ×5 (07:43→21:51)
[2017-09-09 08:21] LABS: ALBUMIN 2.6 g/dl (3.4-5.0); ANION GAP 9 (8-16); BLOOD UREA NITROGEN 10 mg/dL (7-18); CALCIUM 8.2 mg/dL (8.5-10.1); CHLORIDE 94 mmol/L (98-107); CO2 24 mmol/L (21-32); GLUCOSE,RANDOM 141 mg/dL (74-106); POTASSIUM 4.3 mmol/L (3.5-5.1); SODIUM 127 mmol/L (136-145)
[2017-09-09 08:25] LABS: ALK PHOS 75 U/L (45-117); BILIRUBIN,TOTAL 0.9 mg/dL (0.2-1.0); CREATININE 0.7 mg/dL (0.7-1.3); SGOT/AST 10 U/L (15-37); SGPT/ALT 12 U/L (12-78); TOT PROT 6.8 g/dl (6.4-8.2)
[2017-09-09] MEDS: DUTASTERIDE 0.5 MG CAP (FP) PO SCH (09:37)
[2017-09-09] MEDS: ATENOLOL 50 MG TABLET (FP) PO SCH (09:37)
[2017-09-09] MEDS: ASPIRIN 81 MG CHEWABLE TABLETS PO SCH (09:37)
[2017-09-09] MEDS: PANTOPRAZOLE 40 MG TABLET (FP) PO SCH (09:37)
[2017-09-09] MEDS: CEFPODOXIME PROXETIL 200 MG TABLET [NF] PO SCH ×2 (09:37→21:51)
[2017-09-09] MEDS: EZETIMIBE 10 MG TABLET (FP) PO SCH (09:37)
[2017-09-09 09:46] LABS: HEMATOCRIT 40.8 % (35.4-49); HEMOGLOBIN 12.7 GM/dL (11.7-16.9); MCH 24.1 pg (25.7-33.7); MCHC 31.2 g/dl (32.0-35.9); MEAN CELL VOLUME 77.5 fl (80-96); PLATELET COUNT 460 K/MM3 (134-434); RBC 5.26 M/mm3 (4.00-5.60); RDW 18.9 % (11.9-15.9); WHITE BLOOD COUNT 18.8 K/mm3 (4.0-10.0)
--- NOTE | 2017-09-09 10:27 | PN ---
Progress Note, Physician History of Present Illness: Pt w/o fever, chills, SOB, CP, nausea, vomiting. Pt with mild mid abdomen pain. - Current Medication List Current Medications: Active Medications Acetaminophen (Tylenol -) 500 mg PO DAILY PRN PRN Reason: PAIN Last Admin: 09/08/17 01:55 Dose: 500 mg Aspirin (Asa -) 81 mg PO DAILY [facility] Last Admin: 09/09/17 09:37 Dose: 81 mg Atenolol (Tenormin -) 100 mg PO DAILY [facility] Last Admin: 09/09/17 09:37 Dose: 100 mg Cefpodoxime Proxetil (Vantin -) 200 mg PO BID [facility] Last Admin: 09/09/17 09:37 Dose: 200 mg Dutasteride (Avodart -) 0.5 mg PO DAILY [facility] Last Admin: 09/09/17 09:37 Dose: 0.5 mg Ezetimibe (Zetia -) 10 mg PO DAILY [facility] Last Admin: 09/09/17 09:37 Dose: 10 mg Enoxaparin Sodium (Lovenox -) 100 mg SQ DAILY@1999 [facility] Last Admin: 09/08/17 21:35 Dose: 100 mg Metronidazole (Flagyl 500mg Premixed Ivpb -) 500 mg in 100 mls @ 100 mls/hr IVPB Q6H-IV [facility] Last Admin: 09/09/17 08:30 Dose: 100 mls/hr Insulin Aspart (Novolog Vial Sliding Scale -) 1 vial SQ Q4H [facility] PRN Reason: Protocol Last Admin: 09/09/17 07:44 Dose: Not Given Losartan Potassium (Cozaar -) 50 mg PO HS [facility] Last Admin: 09/08/17 21:46 Dose: 50 mg Metoclopramide HCl (Reglan Injection -) 10 mg IVPB Q8H-IV [facility] Last Admin: 09/09/17 09:36 Dose: 10 mg Ondansetron HCl (Zofran -) 4 mg PO BID PRN PRN Reason: NAUSEA Ondansetron HCl (Zofran Injection) 4 mg IVPB Q4H-IV [facility] Last Admin: 09/09/17 09:38 Dose: Not Given Oxycodone HCl (Roxicodone -) 5 mg PO Q8H PRN PRN Reason: PAIN Last Admin: 09/09/17 08:33 Dose: 5 mg Pantoprazole Sodium (Protonix -) 40 mg PO DAILY [facility] Last Admin: 09/09/17 09:37 Dose: 40 mg - Objective Vital Signs: Vital Signs Temperature 98 F 09/09/17 06:00 Pulse Rate 88 09/09/17 06:00 Respiratory Rate 20 09/09/17 06:00 Blood Pressure 139/62 09/09/17 06:00 O2 Sat by Pulse Oximetry (%) 97 09/08/17 21:00 Constitutional: Yes: No Distress, Calm Cardiovascular: Yes: Regular Rate and Rhythm, S1, S2 Respiratory: Yes: Regular, CTA Bilaterally. No: Rales Gastrointestinal: Yes: Normal Bowel Sounds, Soft, Tenderness (mid abdomen > LLQ ; no rebound). No: Tenderness, Rebound Edema: No Neurological: Yes: Alert, Oriented Labs: CBC, BMP 09/09/17 06:00 09/09/17 06:00 INR, PTT INR 1.19 (0.82-1.09) H 09/07/17 14:50 Problem List - Problems (1) Proctocolitis Code(s): K52.9 - NONINFECTIVE GASTROENTERITIS AND COLITIS, UNSPECIFIED (2) Leukocytosis Code(s): D72.829 - ELEVATED WHITE BLOOD CELL COUNT, UNSPECIFIED (3) Hemorrhagic cystitis Code(s): N30.91 - CYSTITIS, UNSPECIFIED WITH HEMATURIA (4) Arterial occlusion, lower extremity Code(s): I70.209 - UNSP ATHSCL [place] ARTERIES OF EXTREMITIES, UNSP EXTREMITY (5) PAD (peripheral artery disease) Code(s): I73.9 - PERIPHERAL VASCULAR DISEASE, UNSPECIFIED (6) Atrial fibrillation Code(s): I48.91 - UNSPECIFIED ATRIAL FIBRILLATION Qualifiers: Atrial fibrillation type: unspecified Qualified Code(s): I48.91 - Unspecified atrial fibrillation (7) BPH (benign prostatic hypertrophy) Code(s): N40.0 - BENIGN PROSTATIC HYPERPLASIA WITHOUT LOWER URINRY TRACT SYMP (8) Diabetes mellitus Code(s): E11.9 - TYPE 2 DIABETES MELLITUS WITHOUT COMPLICATIONS Qualifiers: Diabetes mellitus type: type 2 Diabetes mellitus complication detail: with other circulatory complications (9) GERD (gastroesophageal reflux disease) Code(s): K21.9 - GASTRO-ESOPHAGEAL REFLUX DISEASE WITHOUT ESOPHAGITIS Qualifiers: Esophagitis presence: with esophagitis Qualified Code(s): K21.0 - Gastro- esophageal reflux disease with esophagitis (10) Lung cancer Code(s): C34.90 - MALIGNANT NEOPLASM OF UNSP PART OF UNSP BRONCHUS OR LUNG (11) Hyponatremia Assessment/Plan: 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 Continue Lovenox- failed Coumadin. Case was d/w pt's nurse.
--- NOTE | 2017-09-09 16:53 | PN ---
GI Progress Note Subjective: no nausea , no vomiting, abdominal pain resolved complete relief with Pantoprazole, Regaln and zofran - Objective Vital Signs: Vital Signs Temperature 98.1 F 09/09/17 15:00 Pulse Rate 81 09/09/17 15:00 Respiratory Rate 20 09/09/17 15:00 Blood Pressure 113/59 09/09/17 15:00 O2 Sat by Pulse Oximetry (%) 97 09/09/17 09:00 Constitutional: Well Nourished Eyes: Yes: Conjunctiva Clear HENT: Yes: Atraumatic Neck: Yes: Supple Cardiovascular: Yes: Regular Rate and Rhythm Respiratory: Yes: CTA Bilaterally ...Palpate: Yes: Soft. No: Firm/Rigid, Guarding, Hepatomegaly, Mass, Pulsatile Mass Labs: CBC, BMP 09/09/17 06:00 09/09/17 06:00 INR, PTT INR 1.19 (0.82-1.09) H 09/07/17 14:50 Problem List - Problems (1) GERD (gastroesophageal reflux disease) Assessment/Plan: resolved Code(s): K21.9 - GASTRO-ESOPHAGEAL REFLUX DISEASE WITHOUT ESOPHAGITIS (2) Abdominal pain Assessment/Plan: --resolved R> advance diet pt examined in the presence of his son, they were made aware to follow-up Code(s): R10.9 - UNSPECIFIED ABDOMINAL PAIN Qualifiers: Abdominal location: unspecified location Qualified Code(s): R10.9 - Unspecified abdominal pain
[2017-09-09] MEDS: METOCLOPRAMIDE HCL 10 MG TABLET (FP) PO SCH (17:26)
[2017-09-09] MEDS ORDERED: PT OWN MED DRAWER 7, Y5N ONE (21:35)
[2017-09-09] MEDS: ENOXAPARIN NA (PORCINE) 100 MG/1 ML DISP.SYRIN SQ SCH (21:48)
[2017-09-09] MEDS: LOSARTAN POTASSIUM 50 MG TABLET (FP) PO SCH (21:50)
[2017-09-10] MEDS: ONDANSETRON 4 MG/2 ML VIAL IVPB SCH ×4 (01:49→14:41)
[2017-09-10] MEDS: INSULIN SLIDING SCALE (NOVOLOG) 1 VIAL SQ SCH ×5 (06:09→15:48)
[2017-09-10] MEDS: METOCLOPRAMIDE HCL 10 MG TABLET (FP) PO SCH ×3 (06:10→16:14)
[2017-09-10 07:37] LABS: ANION GAP 9 (8-16); BLOOD UREA NITROGEN 12 mg/dL (7-18); CALCIUM 8.2 mg/dL (8.5-10.1); CHLORIDE 98 mmol/L (98-107); CO2 27 mmol/L (21-32); CREATININE 0.8 mg/dL (0.7-1.3); GLUCOSE,RANDOM 130 mg/dL (74-106); POTASSIUM 4.6 mmol/L (3.5-5.1); SODIUM 134 mmol/L (136-145)
[2017-09-10 08:00] LABS: HEMOGLOBIN 11.6 GM/dL (11.7-16.9); MCH 24.3 pg (25.7-33.7); MCHC 31.4 g/dl (32.0-35.9); MEAN CELL VOLUME 77.5 fl (80-96); PLATELET COUNT 415 K/MM3 (134-434); RBC 4.78 M/mm3 (4.00-5.60); RDW 18.7 % (11.9-15.9); WHITE BLOOD COUNT 16.7 K/mm3 (4.0-10.0)
[2017-09-10] MEDS: ASPIRIN 81 MG CHEWABLE TABLETS PO SCH (09:49)
[2017-09-10] MEDS: DUTASTERIDE 0.5 MG CAP (FP) PO SCH (09:49)
[2017-09-10] MEDS: EZETIMIBE 10 MG TABLET (FP) PO SCH (09:49)
[2017-09-10] MEDS: PANTOPRAZOLE 40 MG TABLET (FP) PO SCH (09:49)
[2017-09-10] MEDS: CEFPODOXIME PROXETIL 200 MG TABLET [NF] PO SCH (09:49)
[2017-09-10] MEDS: ATENOLOL 50 MG TABLET (FP) PO SCH (09:49)
--- NOTE | 2017-09-10 11:49 | DS ---
Physical Examination Vital Signs: Vital Signs Temperature 97.9 F 09/10/17 09:00 Pulse Rate 90 09/10/17 09:00 Respiratory Rate 18 09/10/17 09:00 Blood Pressure 137/60 09/10/17 09:00 O2 Sat by Pulse Oximetry (%) 97 09/09/17 21:00 Findings/Remarks: Pt w/o fever, chills. SOB, CP, abd apin, nausea, vomitting. Pt is tolerating PO intake well. Constitutional: Yes: No Distress, Calm Cardiovascular: Yes: Regular Rate and Rhythm, S1, S2 Respiratory: Yes: Regular, CTA Bilaterally. No: Rales Gastrointestinal: Yes: Normal Bowel Sounds, Soft. No: Tenderness Edema: No Neurological: Yes: Alert, Oriented Labs: CBC, BMP 09/10/17 06:00 09/10/17 06:00 Discharge Summary Reason For Visit: PROTOCOLITIS Current Active Problems GERD (gastroesophageal reflux disease) (Acute) Hyponatremia (Acute) Leukocytosis (Acute) Proctocolitis (Acute) Procedures: Principal: Abd/ pelvis CT scan Other Procedures: CXR Hospital Course: Pt came to ER from home with nausea, left side abd pain; in ER it was noticed to have elevated WBC, on abd/ pelvis CT scan prominent rectosigmoid wall; pt was started on IV abtx, was seen by GI. Pt improved with treatment, started to tolerate PO intake well. Pt to be VT'ed home with PO Flagyl. Condition: Fair - Instructions Diet, Activity, Other Instructions: Resume diet Referrals: Butch Barnes MD [Staff Physician] - (1-2 weeks) Brent Roberts MD [Primary Care Provider] - (in 1-2 weeks) Disposition: HOME - Home Medications Comprehensive Discharge Medication List: Ambulatory Orders this list might NOT be accurate. Losartan Potassium [Cozaar -] 50 mg PO HS 01/06/16 Metformin HCl 500 mg PO DAILY 01/06/16 Erlotinib HCl [Tarceva] 50 mg PO DAILY 05/22/17 Ezetimibe 10 mg PO DAILY 05/22/17 Sitagliptin Phosphate [Januvia -] 100 mg PO DAILY@0700 #30 tablet 05/26/17 Aspirin [ASA -] 81 mg PO DAILY 08/03/17 Oxycodone HCl [Roxicodone -] 5 mg PO Q8H PRN 7 Days #21 tablet MDD 3 08/09/17 Acetaminophen [Extra Strength Non-Aspirin] 500 mg PO DAILY PRN 08/27/17 Atenolol [Tenormin -] 100 mg PO DAILY 08/27/17 Dutasteride 0.5 mg PO DAILY 08/27/17 Acetaminophen [Tylenol .Extra-Strength -] 500 mg PO DAILY PRN tablet 08/28/17 Cefpodoxime Proxetil [Vantin -] 200 mg PO Q12H #20 tablet 08/28/17 Enoxaparin [Lovenox -] 100 mg SQ DAILY #0 disp.syrin 08/28/17 Ondansetron HCl [Zofran] 4 mg PO BID PRN #20 tablet 08/28/17 Pantoprazole Sodium [Protonix] 40 mg PO DAILY #30 tablet. 08/28/17
[2017-09-10] MEDS ORDERED: metFORMIN HCL 500 MG TABLET (FP) PO SCH (12:15)
[2017-09-10 14:53] VITALS: BP 123/55; PULSE 82; TEMP 98.3
[2017-09-11] MEDS ORDERED: sitaGLIPtin PHOSPHATE 50 MG TABLET PO SCH (07:00)
== END 2017-09-10 17:21 | disposition home or self-care (01) | DRG 392 ==
LOC: JER 13:01 → JERBED 18:25 → J8W 21:39
PROVIDERS: ADMIT Specialist; ATTEND Specialist
DX: K52.9 Noninfective gastroenteritis and colitis, unspecified (principal); D47.1 Chronic myeloproliferative disease; E87.1 Hypo-osmolality and hyponatremia; I10 Essential (primary) hypertension; I25.10 Atherosclerotic heart disease of native coronary artery without angina pectoris; E78.5 Hyperlipidemia, unspecified; E11.9 Type 2 diabetes mellitus without complications; I73.89 Other specified peripheral vascular diseases; I48.0 Paroxysmal atrial fibrillation; D72.829 Elevated white blood cell count, unspecified; K21.9 Gastro-esophageal reflux disease without esophagitis; N40.0 Benign prostatic hyperplasia without lower urinary tract symptoms; M19.90 Unspecified osteoarthritis, unspecified site; R10.9 Unspecified abdominal pain; N30.91 Cystitis, unspecified with hematuria; I70.209 Unspecified atherosclerosis of native arteries of extremities, unspecified extremity; Z79.01 Long term (current) use of anticoagulants; Z89.612 Acquired absence of left leg above knee; Z85.118 Personal history of other malignant neoplasm of bronchus and lung; Z87.891 Personal history of nicotine dependence
CPT/HCPCS: 36415; 71045-TC; 74176-TC; 80048; 80053; 81003; 81015; 82962; 83605; 83690; 85025; 85027; 85610; 87040; 87086; 93005; 93010; 99284-25

== ENCOUNTER 2017-10-20 10:16 | Emergency (ER) | payer OTHER ==
[2017-10-20 10:22] VITALS: BMI 23.5
--- NOTE | 2017-10-20 10:49 | PDOC ---
History of Present Illness <Carla Barrios - Last Filed: 10/20/17 15:08> - General History Source: Patient Exam Limitations: No Limitations - History of Present Illness Travel History: Yes Initial Comments: 10/20/17 17:21 The patient is an 82 year old male with history of hypertension, hyperlipidemia , CAD, atrial fibrillation, DM, R lung CA s/p lobectomy, who presents to the ED with several complaints. The patient states that he has been feeling generally weak with decreased appetite and weight loss of approximately 20 pounds over the past month. Over the past week he has had a dry, nonproductive cough. Yesterday, he began to experience right flank pain and constipation, now improved. This morning, he experienced some chest tightness and shortness of breath, which prompted him to come to the ED today. He states his chest tightness and shortness of breath lasted only a few seconds and are now improved. The patient denies fever or chills. No nausea, vomiting, or diarrhea. No urinary complaints. Pt notes his R flank pain is consistent with prior, is on oxyocodone from PMd for it. He reports he last had chemotherapy approximately 2 months ago. Currently not being treated with chemotherapy or radiation. PCP: Dr. Alisha Roberts Heme/Onc: Dr. Tacho Rendon <Tacho Ro - Last Filed: 10/20/17 17:49> - General Chief Complaint: Pain Stated Complaint: BACK PAIN Time Seen by Provider: 10/20/17 10:28 Past History <Carla Barrios - Last Filed: 10/20/17 15:08> - Past Medical History Anemia: No Asthma: No Cancer: Yes (R LUNG S/P RADIATION) Cardiac Disorders: Yes (afib) CVA: No COPD: No CHF: No DVT: No Dementia: No Diabetes: Yes Dialysis: No GI Disorders: Yes (REFLUX) Disorders: Yes (ENLARGED PROSTATE) HTN: Yes Hypercholesterolemia: Yes Liver Disease: No Seizures: No Thyroid Disease: No Lung CA: Yes - Surgical History Abdominal Surgery: No Appendectomy: No Cardiac Surgery: No Cholecystectomy: No Lung Surgery: Yes (R LUNG CA/lobectomy) Neurologic Surgery: No 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) - Immunization History Immunization Up to Date: Yes - Suicide/Smoking/Psychosocial Hx Smoking Status: No Smoking History: Former smoker Have you smoked in the past 12 months: No Number of Cigarettes Smoked Daily: 0 If you are a former smoker, when did you quit?: 30 years ago Information on smoking cessation initiated: No Hx Alcohol Use: No Drug/Substance Use Hx: No Substance Use Type: None Hx Substance Use Treatment: No <JiaTacho - Last Filed: 10/20/17 17:49> - Past Medical History Allergies/Adverse Reactions: Allergies Allergy/AdvReac Type Severity Reaction Status Date / Time vancomycin Allergy Severe Verified 10/20/17 10:17 Home Medications: Ambulatory Orders Losartan Potassium [Cozaar -] 50 mg PO HS 01/06/16 Metformin HCl 500 mg PO DAILY 01/06/16 Ezetimibe 10 mg PO DAILY 05/22/17 Sitagliptin Phosphate [Januvia -] 100 mg PO DAILY@0700 #30 tablet 05/26/17 Aspirin [ASA -] 81 mg PO DAILY 08/03/17 Atenolol [Tenormin -] 100 mg PO DAILY 08/27/17 Dutasteride 0.5 mg PO DAILY 08/27/17 Enoxaparin Sodium [Lovenox] 0 mg SQ DAILY 09/29/17 Review of Systems - Review of Systems Able to Perform ROS?: Yes Comments:: 10/20/17 17:22 CONSTITUTIONAL: Present: generalized weakness, decreased appetite No reported: Fever, Chills, Diaphoresis, Malaise HEENT: No reported: Rhinorrhea, Nasal Congestion, Throat Pain, Throat Swelling, Difficulty Swallowing, Mouth Swelling, Ear Pain, Eye Pain, Visual Changes CARDIOVASCULAR: Present: chest pain (resolved), SOB (resolved) No reported: Syncope, Peripheral Edema RESPIRATORY: Present: nonproductive cough No reported: SOB with Exertion, Orthopnea, Wheezing, Stridor, Hemoptysis GASTROINTESTINAL: Present: constipation No reported: Abdominal pain, Abdominal Distension, Nausea, Vomiting, Diarrhea, Melena, Hematochezia GENITOURINARY: No reported: Dysuria, Frequency, Urgency, Hesitancy, Flank Pain, Genital Pain MUSCULOSKELETAL: Present: chronic RLE pain x 5 years No reported: Joint Swelling, Back pain, Neck Pain SKIN: No reported: Rash, Itching, Pallor HEMEATOLOGIC/IMMUNOLOGIC: No reported: Easy Bleeding, Easy Bruising, Lymphadenopathy, Frequent infections ENDOCRINE: No reported: Unexplained Weight Gain, Heat Intolerance, Cold Intolerance NEUROLOGIC: No reported: Headache, Focal Weakness, Paresthesias, Vertigo, Unsteady Gait, Seizure, Mental Status Changes, Incontinence PSYCHIATRIC: No reported: Anxiety, Depression <Tacho Ro - Last Filed: 10/20/17 17:49> *Physical Exam - Vital Signs Last Vital Signs Temp Pulse Resp BP Pulse Ox 97.9 F 103 H 20 160/85 97 10/20/17 10:19 10/20/17 10:19 10/20/17 10:19 10/20/17 10:19 10/20/17 10:19 <SophieCarla - Last Filed: 10/20/17 15:08> - Vital Signs Last Vital Signs Temp Pulse Resp BP Pulse Ox 97.9 F 103 H 20 160/85 97 10/20/17 10:19 10/20/17 10:19 10/20/17 10:19 10/20/17 10:19 10/20/17 10:19 - Physical Exam Comments: 10/20/17 17:22 GENERAL: The patient is awake, alert, and fully oriented, Frail appearance. HEAD: Normocephalic, atraumatic. EYES: extraocular movements intact, sclera anicteric, conjunctiva clear. ENT: Normal voice, Moist mucous membranes. NECK: Normal range of motion, supple LUNGS: Diminished breath sounds on the right side. No wheezes, no rhonchi, no rales. HEART: Regular rate and rhythm, without murmur, rub or gallop. ABDOMEN: Soft, nontender, normoactive bowel sounds. No guarding, no rebound.No CVA tenderness EXTREMITIES: L AKA. Otherwise: Normal range of motion, no edema. No clubbing or cyanosis. No cords, erythema, or tenderness. NEUROLOGICAL: No facial assymetry, Normal speech, gait deferred. PSYCH: Normal mood, normal affect. SKIN: Warm, Dry, normal turgor, <Tacho Ro - Last Filed: 10/20/17 17:49> Heart Score/ECG Review - ECG Impressions Comment:: 10/20/17 10:57 Twelve-lead EKG was performed and reviewed by me. There is normal sinus rhythm with a normal rate. Rate of 94 The axis is normal The intervals are normal. There is normal R wave progression There are no ST or T wave abnormalities. Impression: Normal twelve-lead EKG <Tacho Ro - Last Filed: 10/20/17 17:49> ED Treatment Course - LABORATORY CBC & Chemistry Diagram: 10/20/17 11:15 10/20/17 11:15 - ADDITIONAL ORDERS Additional order review: Laboratory Results 10/20/17 10/20/17 10/20/17 11:15 11:15 11:15 PT with INR 13.40 H INR 1.19 H Sodium 133 L Potassium 4.7 Chloride 98 Carbon Dioxide 21 Anion Gap 14 BUN 11 Creatinine 0.6 L Creat Clearance w eGFR > 60 Random Glucose 128 H Lactic Acid 1.9 Calcium 9.4 Total Bilirubin 0.6 D AST 15 ALT 10 L D Alkaline Phosphatase 105 D Creatine Kinase 19 L Troponin I < 0.02 B-Natriuretic Peptide 3489.03 H Total Protein 8.1 Albumin 2.7 L 10/20/17 11:15 RBC 5.19 MCV 77.2 L MCHC 32.4 RDW 19.0 H MPV 8.1 Neutrophils % 81.9 Lymphocytes % 4.6 L D Monocytes % 5.5 Eosinophils % 7.3 H Basophils % 0.7 D <Carla Barrios - Last Filed: 10/20/17 15:08> - LABORATORY CBC & Chemistry Diagram: 10/20/17 11:15 10/20/17 11:15 - RADIOLOGY Radiology Studies Ordered: Category Date Time Status CHEST X-RAY PORTABLE* [RAD] Stat Radiology 10/20/17 10:48 Ordered <Tacho Ro - Last Filed: 10/20/17 17:49> Medical Decision Making - Medical Decision Making 10/20/17 14:19 Case discussed with patient's PCP, Dr. Roberts. 10/20/17 15:08 Chest x-ray, read and interpreted by Dr. Anderson. Impression: Slightly worse compared to study on 09/29/2017. Progressive right opacification. 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 s/p lobectomy, presents with generalized weakness x 1 month, cough/sob for approx 1 week w/o fever/chills, R flank pain yesterday and brief episode of L sharp chest pain this morning. Pt states he feels alittle better since presentation and currently denies any sob, cp, abd pain, flank pain. on exam pt has significntly deminished breath sounds on R lung he is in no distress otherwise but is frail ddx - pna, effusion, ptx, anemia, metabolic dernagement, acs will ck cbc, cmp, trops, ekg cxr will reassess pmd: dr. sean best: paulina/chilo A portion of this note was documented by scribe services under my direction. I have reviewed the details of the note, within reason, and agree with the documentation with the following case summary and management plan written by me 10/20/17 14:15 lung ca with mets to r ribs pain is chornic and dr. roberts increaseoxycodone to 10mg by pmd suspects his r flank pain was because o fhis mets ribs 10/20/17 16:04 The patient is feeling better, awaiting second troponin and then we'll discharge follow up with primary care doctor 10/20/17 17:22 The patient is feeling well currently awaiting his troponin is negative we'll discharge with PMD follow-up 10/20/17 17:49 Troponin negative 2 the patient's feeling improved will discharge PMD follow-up I discussed the physical exam findings, ancillary test results and final diagnoses with the patient. I answered all of the patient's questions. The patient was satisfied with the care received and felt comfortable with the discharge plan and treatment plan. The patient will call their primary care physician within 24 hours to arrange follow-up and will return to the Emergency Department with any new, persistent or worsening symptoms. <Tacho Ro - Last Filed: 10/20/17 17:49> *DC/Admit/Observation/Transfer <Carla Barrios - Last Filed: 10/20/17 15:08> - Discharge Dispostion Admit: No <Tacho Ro - Last Filed: 03/15/18 17:49> Diagnosis at time of Disposition: Atypical chest pain Lung cancer Qualifiers: Laterality: right Lung location: unspecified part of lung Qualified Code(s): C34.91 - Malignant neoplasm of unspecified part of right bronchus or lung Metastasis Qualifiers: Area of secondary neoplastic involvement: unspecified site Qualified Code(s): C79.9 - Secondary malignant neoplasm of unspecified site - Discharge Dispostion Disposition: HOME Condition at time of disposition: Stable - Referrals Referrals: Brent Roberts MD [Primary Care Provider] - - Patient Instructions Printed Discharge Instructions: DI for Atypical Chest Pain Additional Instructions: I suspect that you're pain is secondary to your metastasis from lung cancer. Please your Percocet to 10 mg 3 times a day as needed for your pain. Follow up with dr. Roberts this week for further evaluation. If you have worsening pain, shortness of breath, fevers, or other concerns come back to the emergency department Print Language: INDONESIAN
[2017-10-20 11:29] LABS: BASO % 0.7 % (0-2.0); EOS % 7.3 % (0-4.5); HEMATOCRIT 40.1 % (35.4-49); LYMPH % 4.6 % (8-40); MCHC 32.4 g/dl (32.0-35.9); MEAN CELL VOLUME 77.2 fl (80-96); MEAN PLT VOLUME 8.1 fl (7.5-11.1); MONO % 5.5 % (3.8-10.2); NEUT % 81.9 % (42.8-82.8); PLATELET COUNT 360 K/MM3 (134-434); RBC 5.19 M/mm3 (4.00-5.60); WHITE BLOOD COUNT 14.5 K/mm3 (4.0-10.0)
[2017-10-20 11:41] LABS: INR 1.19 (0.82-1.09); PROTHROMBIN TIME (PATIENT) 13.4 SEC (9.98-11.88)
[2017-10-20 12:05] LABS: ALBUMIN 2.7 g/dl (3.4-5.0); ANION GAP 14 (8-16); BILIRUBIN,TOTAL 0.6 mg/dL (0.2-1.0); BLOOD UREA NITROGEN 11 mg/dL (7-18); CALCIUM 9.4 mg/dL (8.5-10.1); CHLORIDE 98 mmol/L (98-107); CO2 21 mmol/L (21-32); CREATININE 0.6 mg/dL (0.7-1.3); GLUCOSE,RANDOM 128 mg/dL (74-106); POTASSIUM 4.7 mmol/L (3.5-5.1); SGOT/AST 15 U/L (15-37); SGPT/ALT 10 U/L (12-78); SODIUM 133 mmol/L (136-145); TOT PROT 8.1 g/dl (6.4-8.2)
[2017-10-20 12:07] LABS: ALK PHOS 105 U/L (45-117); N-TERMINAL BNP 3489.03 pg/ml (5-450)
--- NOTE | 2017-10-20 12:40 | EKG ---
Test Reason : Blood Pressure : / mmHG Vent. Rate : 094 BPM Atrial Rate : 094 BPM P-R Int : 152 ms QRS Dur : 068 ms QT Int : 354 ms P-R-T Axes : 040 018 036 degrees QTc Int : 442 ms NORMAL SINUS RHYTHM POSSIBLE LEFT ATRIAL ENLARGEMENT BORDERLINE ECG WHEN COMPARED WITH ECG OF 29-SEP-2017 01:03, NO SIGNIFICANT CHANGE WAS FOUND Confirmed by ZITA BYRNE MD ([id number]) on 10/20/2017 12:39:52 PM Referred By: Confirmed By:ZITA BYRNE MD
[2017-10-20 18:14] VITALS: BP 145/75; PULSE 68; TEMP 98.6
== END 2017-10-20 18:19 | disposition home or self-care (01) ==
LOC: JER 10:16
DX: R07.89 Other chest pain (principal); C34.91 Malignant neoplasm of unspecified part of right bronchus or lung; C79.51 Secondary malignant neoplasm of bone; I25.10 Atherosclerotic heart disease of native coronary artery without angina pectoris; I10 Essential (primary) hypertension; Z87.891 Personal history of nicotine dependence; I48.0 Paroxysmal atrial fibrillation; Z79.01 Long term (current) use of anticoagulants; E11.9 Type 2 diabetes mellitus without complications; Z79.84 Long term (current) use of oral hypoglycemic drugs; N40.0 Benign prostatic hyperplasia without lower urinary tract symptoms; I73.9 Peripheral vascular disease, unspecified; Z89.612 Acquired absence of left leg above knee; K59.09 Other constipation
CPT/HCPCS: 36415; 71045-TC-FY; 80053; 82550; 83605; 83880; 84484; 85025; 85610; 87040; 93005; 93010; 99282-25